=== PATIENT | male | born 1935 | race Caucasian/White ===

== ENCOUNTER 2017-02-21 21:49 | Observation (INO) ==
[2017-02-21] MEDS ORDERED: Ondansetron 4 MG/2 ML VIAL IVP ONE (22:05)
[2017-02-21 22:14] LABS: Basophils # 0.1 K/mcL (0.0-0.2); Basophils % 0.5 %; Eosinophils # 0.1 K/mcL (0.0-0.6); Hemoglobin 12.5 g/dL (12.9-16.9); Immature Granulocytes % 0.4 % (0-4); Lymphocytes # 1.1 K/mcL (0.6-4.6); Lymphocytes % 10.7 %; Mean Corpuscular HGB Conc 32.9 g/dL (31.6-35.5); Mean Corpuscular Hemoglobin 29.1 pg (28.0-33.3); Mean Corpuscular Volume 88.4 fL (83.0-100.0); Mean Platelet Volume 9.3 fL (9.4-12.4); Monocytes # 0.8 K/mcL (0.0-1.3); Monocytes % 7.9 %; Neutrophils # 7.8 K/mcL (1.6-8.9); Platelet Count 132 K/mcL (140-400); Red Cell Distribution Width 15.1 % (11.5-14.5); Segmented Neutrophils % 79.5 %
[2017-02-21 22:19] LABS: INR 1.1; Prothrombin Time 11.7 Seconds (9.4-12.1)
[2017-02-21] MEDS ORDERED: GI Cocktail 40 ML EACH PO ONE (22:20)
[2017-02-21 22:22] LABS: Activated Partial Thrombo Time 27.5 Seconds (26.0-36.0)
[2017-02-21 22:27] LABS: BUN/Creatinine Ratio 21 (6-26); Blood Urea Nitrogen 22 mg/dL (8-26); Calcium 10.1 mg/dL (8.6-10.8); Carbon Dioxide 30 mEq/L (19-29); Chloride 100 mEq/L (98-109); Glucose 116 mg/dL (70-99); Osmolality,Calculated 292 (280-300); Potassium 4.3 mEq/L (3.5-4.5); Sodium 139 mEq/L (136-145); eGFR For African Americans > 60 (> 60); eGFR For Non-African Americans > 60 (> 60)
[2017-02-21 22:44] LABS: Alanine Aminotransferase 138 Units/L (0-55); Albumin 3.9 g/dL (3.5-5.0); Albumin/Globulin Ratio 1.1 (1.1-2.2); Alkaline Phosphatase 167 Units/L (38-126); Aspartate Amino Transferase 262 Units/L (5-34); Bilirubin,Direct 1.5 mg/dL (0.0-0.5); Bilirubin,Total 2.5 mg/dL (0.2-1.2); Globulin 3.6 g/dL (2.4-3.5); Lipase 588 Units/L (8-78); Total Protein 7.5 g/dL (6.0-8.3)
--- NOTE | 2017-02-21 22:46 | Emergency Department Note ---
Disposition Clinical Impression: Gallstone pancreatitis Disposition: Admitted As Inpatient Condition: Fair Referrals: NO,PCP [Non-Partnered Physician] - Forms: ED Satisfaction Letter Chest Pain HPI - General Chief Complaint: ED Chest Pain Stated Complaint: chest pain/vomiting Time Seen by Provider: 02/21/17 22:00 Source: patient Mode of arrival: private vehicle Limitations: no limitations Vital Signs Reviewed: Yes Nursing Notes Reviewed: Yes - History of Present Illness HPI Narrative: 81-year-old male history of diabetes, CAD, CABG 3 who presents to the ER with a chief complaint of chest pain. Patient reports that he started having pain around 1 PM today. He reports it was roughly 1 hour after eating. He describes it as a pressure in his epigastric region does not feel similar to his previous DC. Patient reports he has also been a little short of breath but has been nauseous and had a few episodes of nonbloody nonbilious emesis. Patient states he took one sublingual nitroglycerin without any improvement of his symptoms. Patient reports his family made him come in to be seen. Patient states that he follows cardiology in [place]. He denies any recent illnesses, fevers, cough. No history of DVT or PE. No other complaints. Pt complaint: chest pain Onset (ago): hour(s) Time: 13:00 Duration: intermittent Onset: after eating Pain Location: epigastric Severity: moderate Severity scale (1-10): 6 Quality: other (Pressure) Pain Radiation: none Improves with: nothing Worsens with: palpation Associated symptoms: Reports: nausea, vomiting, dyspnea Treatments prior to arrival chest pain: nitroglycerin - Related Data On Oral Contraceptives: No Allergies Allergy/AdvReac Type Severity Reaction Status Date / Time No Known Allergies Allergy Verified 02/21/17 21:50 All systems ED: reviewed and negative except as stated. Constitutional: Denies: fever Cardiovascular: Reports: chest pain Respiratory: Reports: dyspnea. Denies: cough, wheezes Gastrointestinal: Reports: abdominal pain, nausea, vomiting. Denies: diarrhea Musculoskeletal: Denies: back pain, neck pain Chest Pain PMH - Past Medical History Medical history: Reports: atrial fibrillation, CHF, COPD, coronary artery disease, myocardial infarction, thyroid disease Psychiatric history: Reports: no psych history - Social History Smoking Status: Former smoker Alcohol use: Reports: none Drug use: Reports: none Physical Exam - General Limitations: no limitations General appearance: alert, in no apparent distress - Head Head exam: atraumatic, normocephalic, normal inspection - Eye Eye exam: Present: normal appearance, EOMI - ENT ENT exam: normal exam - Neck Neck exam: Present: normal inspection - Chest Chest inspection: Present: normal inspection, symmetric chest wall rise - Respiratory Respiratory exam: Present: normal lung sounds bilaterally - Cardiovascular Cardiovascular exam: Present: regular rate, normal rhythm, normal heart sounds - Abdominal Exam Abdominal exam: Present: soft, tenderness (Patient has epigastric tenderness to palpation. No right upper quadrant abdominal pain.) - Extremities Exam Extremities exam: Present: normal inspection, full ROM - Expanded Upper Extremity Exam Shoulder exam: Present: normal inspection, full ROM Arm exam: Present: normal inspection, full ROM Elbow exam: Present: normal inspection, full ROM Forearm/Wrist exam: Present: normal inspection, full ROM Hand exam: Present: normal inspection, full ROM - Expanded Lower Extremity Exam Hip/Pelvis exam: Present: normal inspection, full ROM Upper leg exam: Present: normal inspection, full ROM Knee exam: Present: normal inspection, full ROM Lower leg exam: Present: normal inspection, full ROM Ankle exam: Present: normal inspection, full ROM Foot/toe exam: Present: normal inspection, full ROM - Neurological Exam Neurological exam: Present: alert - Psychiatric Psychiatric exam: Present: normal affect, normal mood - Skin Skin exam: Present: warm, dry, intact, normal color Course Course Narrative: Patient seen and examined. Vital signs reviewed. We will get an EKG, chest x- ray as well as a CT scan of the abdomen and pelvis with IV contrast with labs. We will give him a GI cocktail and reassess. - Reevaluation(s) Reevaluation #1: Discussed results of imaging and lab work with the patient and family. Reevaluation #2: Discussed recommendations from gastroenterology with the patient and family. - Consultations Consultation #1: I discussed this patient with the on-call ointment mill tender. Reports to make the patient nothing by mouth and they will proceed with an ERCP. Vital Signs Temperature 97.5 F L 02/21/17 21:51 Pulse Rate 81 02/21/17 21:51 Respiratory Rate 18 02/21/17 21:51 Blood Pressure 123/66 02/21/17 21:51 O2 Sat by Pulse Oximetry 99 02/21/17 21:51 Temperature 97.5 F L 02/21/17 21:51 Pulse Rate 100 02/22/17 01:00 Respiratory Rate 22 02/22/17 01:00 Blood Pressure 113/65 02/22/17 01:00 O2 Sat by Pulse Oximetry 92 02/22/17 01:00 Oxygen Delivery Oxygen Delivery Nasal Cannula Chest Pain - MDM Narrative Medical decision making narrative: 81-year-old male presents to the ER due to epigastric abdominal pain that started around 1 PM. EKG here is sinus rhythm. Troponin negative. CT scan shows cholelithiasis with biliary ductal dilation. He also has a transaminitis , pancreatitis and elevated bilirubin consistent with a gallstone pancreatitis. Case was discussed with gastroenterology. The patient will be made nothing by mouth to undergo ERCP later date. Admitted to the hospitalist service. - Lab Data Lab results reviewed: Yes I reviewed the patient's lab results. Result diagrams: 02/21/17 22:05 02/21/17 22:05 Lab Results 02/21/17 02/21/17 02/21/17 Range/Units 22:05 22:05 22:05 WBC 9.9 (4.3-11.1) K/mcL RBC 4.30 (4.19-5.50) M/mcL Hgb 12.5 L (12.9-16.9) g/dL Hct 38.0 (37.5-50.1) % MCV 88.4 (83.0-100.0) fL MCH 29.1 (28.0-33.3) pg MCHC 32.9 (31.6-35.5) g/dL RDW 15.1 H (11.5-14.5) % Plt Count 132 L (140-400) K/mcL MPV 9.3 L (9.4-12.4) fL Immature Gran % 0.4 (0-4) % Seg Neutrophils % 79.5 % Lymphocytes % 10.7 % Monocytes % 7.9 % Eosinophils % 1.0 % Basophils % 0.5 % Neutrophils # 7.8 (1.6-8.9) K/mcL Lymphocytes # 1.1 (0.6-4.6) K/mcL Monocytes # 0.8 (0.0-1.3) K/mcL Eosinophils # 0.1 (0.0-0.6) K/mcL Basophils # 0.1 (0.0-0.2) K/mcL PT 11.7 (9.4-12.1) Seconds INR 1.1 APTT 27.5 (26.0-36.0) Seconds Sodium (136-145) mEq/L Potassium (3.5-4.5) mEq/L Chloride (98-109) mEq/L Carbon Dioxide (19-29) mEq/L BUN (8-26) mg/dL Creatinine (0.72-1.25) mg/dL Est GFR ( Amer) (> 60) Est GFR (Non-Af Amer) (> 60) BUN/Creatinine Ratio (6-26) Glucose (70-99) mg/dL Calculated Osmolality (280-300) Calcium (8.6-10.8) mg/dL Total Bilirubin (0.2-1.2) mg/dL Direct Bilirubin (0.0-0.5) mg/dL Indirect Bilirubin (0.0-1.2) mg/dL AST (5-34) Units/L ALT (0-55) Units/L Alkaline Phosphatase (38-126) Units/L Troponin I (0-0.03) ng/mL B-Natriuretic Peptide 106 H (0-100) pg/mL Serum Total Protein (6.0-8.3) g/dL Albumin (3.5-5.0) g/dL Globulin (2.4-3.5) g/dL Albumin/Globulin Ratio (1.1-2.2) Lipase (8-78) Units/L 02/21/17 02/21/17 Range/Units 22:05 22:05 WBC (4.3-11.1) K/mcL RBC (4.19-5.50) M/mcL Hgb (12.9-16.9) g/dL Hct (37.5-50.1) % MCV (83.0-100.0) fL MCH (28.0-33.3) pg MCHC (31.6-35.5) g/dL RDW (11.5-14.5) % Plt Count (140-400) K/mcL MPV (9.4-12.4) fL Immature Gran % (0-4) % Seg Neutrophils % % Lymphocytes % % Monocytes % % Eosinophils % % Basophils % % Neutrophils # (1.6-8.9) K/mcL Lymphocytes # (0.6-4.6) K/mcL Monocytes # (0.0-1.3) K/mcL Eosinophils # (0.0-0.6) K/mcL Basophils # (0.0-0.2) K/mcL PT (9.4-12.1) Seconds INR APTT (26.0-36.0) Seconds Sodium 139 (136-145) mEq/L Potassium 4.3 (3.5-4.5) mEq/L Chloride 100 (98-109) mEq/L Carbon Dioxide 30 H (19-29) mEq/L BUN 22 (8-26) mg/dL Creatinine 1.03 (0.72-1.25) mg/dL Est GFR ( Amer) > 60 (> 60) Est GFR (Non-Af Amer) > 60 (> 60) BUN/Creatinine Ratio 21 (6-26) Glucose 116 H (70-99) mg/dL Calculated Osmolality 292 (280-300) Calcium 10.1 (8.6-10.8) mg/dL Total Bilirubin 2.5 H (0.2-1.2) mg/dL Direct Bilirubin 1.5 H (0.0-0.5) mg/dL Indirect Bilirubin 1.0 (0.0-1.2) mg/dL AST 262 H (5-34) Units/L ALT 138 H (0-55) Units/L Alkaline Phosphatase 167 H (38-126) Units/L Troponin I 0.01 (0-0.03) ng/mL B-Natriuretic Peptide (0-100) pg/mL Serum Total Protein 7.5 (6.0-8.3) g/dL Albumin 3.9 (3.5-5.0) g/dL Globulin 3.6 H (2.4-3.5) g/dL Albumin/Globulin Ratio 1.1 (1.1-2.2) Lipase 588 H (8-78) Units/L - Radiology Data Radiology results reviewed: Yes I reviewed the patient's radiology results. Chest X-Ray 02/21/17 22:01 IMPRESSION: Extensive chronic pleural and parenchymal disease including calcified pleural plaques. No definite acute disease. D/ / Jesse Cobb MD / Jesse Cobb MD Interpreting Provider: Jesse Cobb MD Abdomen/Pelvis CT 02/21/17 22:30 IMPRESSION: 1. Cholelithiasis with biliary ductal dilation but no definite evidence for acute cholecystitis. 2. Diverticulosis without scan evidence for diverticulitis. 3. Small knuckle of small bowel is contained within a supraumbilical hernia without evidence for bowel obstruction. D/ / Bryce Che MD / Bryce Che MD Interpreting Provider: Bryce Che MD - EKG Data EKG attestation: Yes I reviewed and interpreted this EKG. EKG results narrative: EKG demonstrates normal sinus rhythm with a rate of 84 bpm. Normal axis. RI interval 127 QRS duration 99 QTc 413 t elevations or depressions. No acute ischemic findings. No significant changes from previous EKG dated 03/11/12. Heart Score - Score History: Slightly Suspicious EKG: Normal Age: Greater than 65 Risk Factors: Equal/Greater than 3 risk factor or history of atherosclerotic disease Troponin: Less than normal limit HEART Score Total: 4 S.B.A.R. - S.B.A.R. Situation: Demographics, MOA Background: Presenting Complaint, Relevant PMH, Meds, & Allergies Assessment: Vital Signs, Course and respsone to treatment, Exam Concerns, Patient/Family Expectation, Pertinant Lab Results, Outstanding Labs Recommendation: Barrier(s) to disposition, Recommendation based on pending studies, treatments, or consults S.B.A.R. Report Given to: Dr. Ospina Attestation Statement - Attestation Attestation: I, Kishore Benites MD, personally performed a history and physical exam of the patient and discussed their management with the resident. I reviewed the resident's note and agree with the documented findings, medical decision making , and plan of care. 81-year-old male presents to the emergency department with a complaint of upper abdominal pain associated with nausea and vomiting. Symptoms started about 6 PM this evening. No prior history of similar episodes. No prior abdominal surgeries. No melena, hematemesis, or hematochezia. On examination patient is a well-developed well-nourished elderly male in no acute distress. He has alert and oriented 3. There is no cyanosis or diaphoresis. Rest sounds are equal bilaterally. Heart regular rate and rhythm. Abdomen soft with normal bowel sounds. Mild to moderate epigastric tenderness. No guarding or rebound tenderness. No tympany or distention. Labs reviewed. Elevated bilirubin and liver enzymes noted. Elevated lipase. CT shows a distended gallbladder with cholelithiasis and dilated common bile duct. No evidence of acute cholecystitis. Dr. Mehta discussed with ointment mill tender, Dr. Eli. He recommended admission by the hospitalist and he will consult on the patient for an ERCP. The hospitalist, Dr. Ospina, was consulted and accepted admission of the patient.
[2017-02-22] MEDS ORDERED: *HR* FentaNYL (PF) 100 MCG/2 ML VIAL IVP ONE (00:16)
[2017-02-22] MEDS ORDERED: 0.9 % Sodium Chloride 1,000 ML IVC ONE (01:32)
--- NOTE | 2017-02-22 02:15 | Internal Med History&Physical ---
Date of Encounter: 02/22/17 Time of Encounter: 02:11 Assessment and Plan (1) Gallstone pancreatitis Current visit: Yes Status: Acute Gallstone pancreatitis, will give IV hydration and pain control. Evaluation by gastroenterology. Emergency Department staff discussed the case with Dr. Eli, will keep the patient nothing per mouth and possible ERCP later today. GI prophylaxis. DVT prophylaxis. Telemetry monitoring. Discussed with the patient and his family in detail, they expressed understanding. (2) Coronary artery disease Current visit: Yes Status: Acute With history of coronary artery disease, taking Plavix on a daily basis. History of stents, last one placed in 05/07/2015. He follows up with Dr. Lopes from [facility]. No chest pain, no EKG changes. Will continue monitoring in telemetry. Qualifiers: Coronary Disease-Associated Artery/Lesion type: unspecified vessel or lesion type [place] vs. transplanted heart: [place] heart Associated angina: without angina Qualified Code(s): I25.10 - Atherosclerotic heart disease of [place] coronary artery without angina pectoris Internal Medicine - H&P: HPI Chief complaint: epigastric pain Admitted From: Emergency Dept Plans for Post Hospital Care: Home History of present illness: Mr. Clark is a very pleasant 81 year old male with past medical history of coronary artery disease status post Dae, status post multiple stents, last one placed in April 2015. Patient follows up at [facility] with dr. everette lopes. He presented to the emergency department complaining of epigastric pain radiating to his back, associated with nausea and vomiting which started a few hours ago. He states of having vomited at least 12 times. Patient denies fever, chills, chest pain, worsening shortness of breath, skin rash, syncope, abnormal movements, melena, hematemesis. Evaluation in the emergency department revealed elevated amylase levels and a CT of the abdomen which revealed correlate the diagnosis with CBD dilation. The patient was admitted for further management and workup. Patient denies the use of Coumadin for anticoagulation, he is taking plavix He is not taking aspirin because he has a history of epistaxis. The patient also takes Lasix daily. His family members with in the room when I interviewed this gentleman, he is hard of hearing, he wears a hearing aid. She states that has a history of abnormal rhythm, at some point he was on Coumadin but he stopped taking Coumadin as per his collar setter overlock advise many years ago. He has regular follow-ups with his collar setter overlock. Past Med Surg Social Fam HX - Past Medical History Medical history: atrial fibrillation, CHF, COPD, coronary artery disease, myocardial infarction, thyroid disease Psychiatric history: no psych history - Social History Smoking Status: Former smoker Smokeless Tobacco Status: No Alcohol use: none Drug use: none Internal Medicine - H&P: Meds Allergies No Known Allergies Allergy (Verified 02/21/17 21:50) All Systems PM: A 10-system review of systems was performed and is negative for pertinent findings except as documented above in the HPI. - Constitutional Constitutional: as per HPI, anorexia, no chills, no fever(s), no night sweats - EENT Eyes: as per HPI, no change in vision, no discharge, no pain, no photophobia Ears: as per HPI, no ear discharge, no ear pain, no tinnitus Nose, mouth and throat: as per HPI, no dysphagia, no nasal discharge, no neck pain, no sore throat - Breasts Breasts: as per HPI - Cardiovascular Cardiovascular ROS IM: as per HPI, no chest pain, no diaphoresis, no dyspnea, no lightheadedness, no palpitations, no syncope - Respiratory Respiratory: as per HPI, no cough, no dyspnea, no wheezing, no excessive phlegm production - Gastrointestinal Gastrointestinal: as per HPI, abdominal pain, vomiting, no diarrhea, no hematemesis, no hematochezia, no melena, no nausea - Genitourinary Genitourinary ROS male: as per HPI - Musculoskeletal Musculoskeletal ROS IM: as per HPI, no numbness, no tingling - Integumentary Integumentary IM: as per HPI, no rash, no unusual bruising - Neurological Neurological ROS: as per HPI, no confusion, no convulsions, no focal weakness, no numbness, no tingling, no tremor(s) - Psychiatric Psychiatric: as per HPI - Endocrine Endocrine IM: as per HPI - Hematologic/Lymphatic Hematologic/Lymphatic: as per HPI, no easy bruising - Allergic/Immunologic Allergic/Immunologic: as per HPI - Constitutional Vitals: Temp Pulse Resp BP Pulse Ox 97.5 F L 100 22 113/65 92 02/21/17 21:51 02/22/17 01:00 02/22/17 01:00 02/22/17 01:00 02/22/17 01:00 General appearance: Present: cooperative, mild distress, A&O X 3, pleasant - Head Head exam: Present: atraumatic, normocephalic - Eye Eye exam: Present: PERRL, conjuntiva pink, sclera anicteric Pupils: Present: PERRL - Neck Neck exam general surgery: Present: supple, trachea midline. Absent: lymphadenopathy - Respiratory Respiratory exam: Present: CTAB. Absent: accessory muscle use, rales, rhonchi, wheezes - Cardiovascular Cardiovascular exam: Present: RRR, +S1, +S2. Absent: diastolic murmur, gallop, rubs, systolic murmur - GI/Abdominal GI/Abdominal exam: Present: normal bowel sounds, soft. Absent: distended, tenderness Additional comments: [place], but patient with epigastric area. No right lower quadrant tenderness. Abdomen is otherwise soft. - Extremities Exam Extremities exam: Present: pedal edema, warm, radial pulses palpable and symetrical. Absent: calf tenderness, cyanotic Additional comments: Warmth and chronic skin dryness in both lower extremities - Neurological Exam Neurological exam: Present: CN II-XII intact, oriented X3, no focal deficits. Absent: pronater drift, facial droop, speech deficit - Skin Skin exam: Present: dry, intact Internal Med - H&P Results - Labs CBC & Chem 7: 02/21/17 22:05 02/21/17 22:05 Labs: Short CBC 02/21/17 Range/Units 22:05 WBC 9.9 (4.3-11.1) K/mcL Hgb 12.5 L (12.9-16.9) g/dL Hct 38.0 (37.5-50.1) % Plt Count 132 L (140-400) K/mcL Neutrophils # 7.8 (1.6-8.9) K/mcL BMP 02/21/17 22:05 Sodium 139 Potassium 4.3 Chloride 100 Carbon Dioxide 30 H BUN 22 Creatinine 1.03 Glucose 116 H Calcium 10.1 Cardiac Enzymes 02/21/17 Range/Units 22:05 Troponin I 0.01 (0-0.03) ng/mL Liver Function 02/21/17 Range/Units 22:05 Total Bilirubin 2.5 H (0.2-1.2) mg/dL Direct Bilirubin 1.5 H (0.0-0.5) mg/dL AST 262 H (5-34) Units/L ALT 138 H (0-55) Units/L Alkaline Phosphatase 167 H (38-126) Units/L Albumin 3.9 (3.5-5.0) g/dL - Impressions ITS Impressions Chest X-Ray 02/21/17 22:01 IMPRESSION: Extensive chronic pleural and parenchymal disease including calcified pleural plaques. No definite acute disease. D/ / Jesse Cobb MD / Jesse Cobb MD Interpreting Provider: Jesse Cobb MD Abdomen/Pelvis CT 02/21/17 22:30 IMPRESSION: 1. Cholelithiasis with biliary ductal dilation but no definite evidence for acute cholecystitis. 2. Diverticulosis without scan evidence for diverticulitis. 3. Small knuckle of small bowel is contained within a supraumbilical hernia without evidence for bowel obstruction. D/ / Brcye Che MD / Bryce Che MD Interpreting Provider: Bryce Che MD
[2017-02-22] MEDS ORDERED: Naloxone 0.4 MG/ML INJ IVP PRN ×2 (02:22)
[2017-02-22] MEDS ORDERED: *HR* Morphine 2 MG/ML SYRINGE IVP PRN (02:22)
[2017-02-22] MEDS: 0.9 % Sodium Chloride 1,000 ML IVC SCH ×2 (03:38→15:46)
[2017-02-22] MEDS: Ondansetron 4 MG/2 ML VIAL IVP PRN ×3 (03:38→18:44)
[2017-02-22 03:45] LABS: Basophils % 0.5 %; Eosinophils % 0.2 %; Hemoglobin 11.8 g/dL (12.9-16.9); Immature Granulocytes % 0.3 % (0-4); Lymphocytes # 0.6 K/mcL (0.6-4.6); Lymphocytes % 9.6 %; Mean Corpuscular HGB Conc 33.7 g/dL (31.6-35.5); Mean Corpuscular Hemoglobin 29.6 pg (28.0-33.3); Mean Corpuscular Volume 87.9 fL (83.0-100.0); Mean Platelet Volume 9.2 fL (9.4-12.4); Monocytes # 0.5 K/mcL (0.0-1.3); Monocytes % 7.7 %; Neutrophils # 5.4 K/mcL (1.6-8.9); Platelet Count 106 K/mcL (140-400); Red Blood Count 3.98 M/mcL (4.19-5.50); Red Cell Distribution Width 15.2 % (11.5-14.5); Segmented Neutrophils % 81.7 %
[2017-02-22 03:47] LABS: INR 1.1; Prothrombin Time 12.1 Seconds (9.4-12.1)
[2017-02-22 04:02] LABS: Alanine Aminotransferase 243 Units/L (0-55); Albumin 3.5 g/dL (3.5-5.0); Albumin/Globulin Ratio 1.1 (1.1-2.2); Alkaline Phosphatase 172 Units/L (38-126); Amylase 160 Units/L (25-125); Aspartate Amino Transferase 368 Units/L (5-34); BUN/Creatinine Ratio 21 (6-26); Bilirubin,Direct 2.3 mg/dL (0.0-0.5); Bilirubin,Total 3.3 mg/dL (0.2-1.2); Blood Urea Nitrogen 20 mg/dL (8-26); Calcium 9.5 mg/dL (8.6-10.8); Carbon Dioxide 30 mEq/L (19-29); Chloride 102 mEq/L (98-109); Globulin 3.1 g/dL (2.4-3.5); Glucose 120 mg/dL (70-99); Lipase 248 Units/L (8-78); Magnesium 1.7 mg/dL (1.6-2.6); Osmolality,Calculated 296 (280-300); Potassium 4.7 mEq/L (3.5-4.5); Sodium 141 mEq/L (136-145); Total Protein 6.6 g/dL (6.0-8.3); Triglycerides 44 mg/dL (< 150); eGFR For African Americans > 60 (> 60); eGFR For Non-African Americans > 60 (> 60)
[2017-02-22 04:06] LABS: Lactate Dehydrogenase 512 Units/L (159-327)
[2017-02-22] MEDS: *HR* Heparin 5,000 UNIT/ML VIAL SQ SCH ×2 (05:58→17:11)
[2017-02-22] MEDS ORDERED: *HR* HYDROmorphone (PF) 1 MG/ML SYRINGE IVP ONE (06:15)
[2017-02-22] MEDS: Pantoprazole 40 MG VIAL IVP SCH (07:44)
[2017-02-22] MEDS ORDERED: 0.9 % Sodium Chloride 500 ML ONE (10:02)
--- NOTE | 2017-02-22 10:17 | Anesthesia Evaluation PreOp ---
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 Significant HX Other Medical History: Thyroid Anesthesia History: No Prior Anesthetic Complications Alcohol Use: none Drug use: none Medications and Allergies Allergies No Known Allergies Allergy (Verified 02/21/17 21:50) - Meds/Allergy Pre-op Review Medications Reviewed: Yes Allergies Reviewed: Yes Beta Blockers on Current Med List: No Anesthesia Results - Labs 02/22/17 03:35 02/22/17 03:35 - Imaging EKG: report reviewed (SR) Additional studies: ECHO 2014 EF 50% Anesthesia Exam O2 Sat Height 1.85 m Weight 80.286 kg Weight 81.647 kg O2 Sat by Pulse Oximetry 97 O2 Sat by Pulse Oximetry 9 O2 Sat by Pulse Oximetry 98 O2 Sat by Pulse Oximetry 92 O2 Sat by Pulse Oximetry 93 O2 Sat by Pulse Oximetry 92 O2 Sat by Pulse Oximetry 92 O2 Sat by Pulse Oximetry 99 Vital Signs Temp Pulse Resp BP Pulse Ox 97.5 F L 81 18 123/66 99 02/21/17 21:51 02/21/17 21:51 02/21/17 21:51 02/21/17 21:51 02/21/17 21:51 Height: 6'1 Weight: 177 lbs NPO (# of Hours): MN Pain Scale: 0 - HEENT Pupil (Motor): Pupils equal, EOMI Mallampati: III Teeth: Edentulous (no upper teeth) Denture Type: Upper: Complete Oral Opening: Less than or equal to 3 - [employer]UE CRAFTSMAN LOC: Oriented [employer] Motor: Normal RUE, Normal LUE, Normal RLE, Normal LLE, Normal Face [employer] Sensory: Normal: RUE, LUE, RLE, LLE, Face - Cardiac Rhythm: Regular Murmur: None JVD: No Carotid Bruit: No - Pulmonary Breath Sounds: bilateral Clear Respiratory Effort: Symmetrical Anesthesia Assess/Plan ASA Score: 3 (CAD COPD) Modified [place] Scale for Level of Consciousness: Cooperative, oriented, and tranquil Anesthetic Plan: General Monitoring Plan: Standard Monitors Recovery Plan: PACU (Discussed GA, agrees to proceed)
[2017-02-22] MEDS ORDERED: *HR* FentaNYL (PF) 100 MCG/2 ML VIAL ONE (10:29)
[2017-02-22] MEDS ORDERED: *HR* Rocuronium Bromide 50 MG/5 ML VIAL ONE (10:29)
[2017-02-22] MEDS ORDERED: Lidocaine -MPF 2% 2 ML VIAL ONE (10:29)
[2017-02-22] MEDS ORDERED: *HR* Propofol 200 MG/20 ML VIAL IVP ONE (10:29)
[2017-02-22] MEDS ORDERED: Ondansetron 4 MG/2 ML VIAL ONE (10:29)
[2017-02-22] MEDS ORDERED: Lidocaine -MPF 4% 5 ML AMPUL ONE (10:30)
--- NOTE | 2017-02-22 10:31 | Gastroenterology Consult Note ---
Date of Encounter: 02/22/17 Time of Encounter: 08:40 - Assessment and plan (1) Gallstone pancreatitis Current Visit: Yes Status: Acute Assessment and plan: The patient with symptomatic gallstones now with the abnormal LFTs and elevated amylase lipase concerning for gallstone pancreatitis and possible retain stone in the bile duct Patient will need an EUS to examine the common bile duct and if abnTHEN ERCP. PATIENT WILL ALSO NEED GALLBLADDER REMOVED BEFORE HE IS BEING DISCHARGED FROM THE HOSPITAL. DISCUSSED WITH THE PATIENT ABOUT THE PROCEDURE INCLUDING risks such as INFECTION BLEEDING PERFORATION PANCREATITIS. BLEEDING BECAUSE HE WAS ON PLAVIX. Patient voice understanding and in agreement - Time Spent With Patient Total time spent is greater than 50% in coordination of care (as documented) at patient's floor/unit and/or counseling patient: GI History of Present Illness - Data of Consult Requesting Physician: Yuriy Aggarwal MD - Consult Narrative History of present illness: Mr. Clark is a 81 year old male Past Med Surg Social Fam HX - Past Medical History Medical history: atrial fibrillation, CHF, COPD, coronary artery disease, myocardial infarction, thyroid disease Psychiatric history: no psych history - Past Surgical History Surgical History: coronary bypass (CABG) - Social History Smoking Status: Former smoker Smokeless Tobacco Status: No Alcohol use: none Drug use: none - Family History Mother Living Status: Hx Family Neuromuscular Disorders: Yes (TB) Review of Systems: GI: as per [facility] GENERAL: denies fever, EYES: denies yellow discoloration ENT: denies pain with swallowing or difficulty swallowing CARDIO: denies chest pain, palpitations RESP: short of breath all time : denies change in color of urine NEURO: denies any new weakness HEME: easy bruising. DERM: dry skin and itchy PSYCH: denies history of: depression or anxiety - Constitutional Vitals: Temp Pulse Resp BP Pulse Ox 97.9 F 92 18 126/72 97 02/22/17 06:32 02/22/17 06:32 02/22/17 06:32 02/22/17 06:32 02/22/17 06:32 General appearance: Present: A&O X 3 - Head Head exam: Present: atraumatic, normocephalic - Neck Neck exam general surgery: Present: supple - Respiratory Additional comments: few crackle in the bases - Cardiovascular Cardiovascular exam: Present: +S1, +S2 Additional comments: Rhythm is regular. Does have central scar of CABG that extended all the way to the upper abdomen - GI/Abdominal Additional comments: Upper abdomen: Scar of CABG. Does has mild tenderness in the epigastric area but no tenderness in the right upper quadrant - Rectal Rectal exam: Present: deferred - Extremities Exam Additional comments: Both lower extremities with chronic venous stasis discoloration - Skin Skin exam: Present: dry Additional comments: Both lower extremity skin with chronic venous stasis changes. Also has multiple bruising all over his body Results - Labs CBC & Chem 7: 02/22/17 03:35 02/22/17 03:35 Labs: Last Result Calcium 9.5 mg/dL (8.6-10.8) 02/22/17 03:35 Troponin I 0.01 ng/mL (0-0.03) 02/21/17 22:05 Triglycerides 44 mg/dL (< 150) 02/22/17 03:35 Entire Visit Hgb 11.8 g/dL (12.9-16.9) L 02/22/17 03:35 Hct 35.0 % (37.5-50.1) L 02/22/17 03:35 PT 12.1 Seconds (9.4-12.1) 02/22/17 03:35 Total Bilirubin 3.3 mg/dL (0.2-1.2) H 02/22/17 03:35 AST 368 Units/L (5-34) H 02/22/17 03:35 ALT 243 Units/L (0-55) H 02/22/17 03:35 Amylase 160 Units/L (25-125) H 02/22/17 03:35 Lipase 248 Units/L (8-78) H 02/22/17 03:35 - ABG ABG results: PT/INR, D-dimer PT 12.1 Seconds (9.4-12.1) 02/22/17 03:35 Consult Discharge Plan - Plan Referrals: Solis Crowder MD [Primary Care Provider] - - Attending Attestation Patient 81-year-old male was admitted because of abdominal pain. Ate lunch yesterday and then he started having epigastric pain, in the evening he vomited couple of times and finally came to the ER had a CT scan done which showed gallstones and abnormal LFTs. Most of his pain has currently resolved but he is LFTs has further increased today. CT also showed mild dilated intrahepatic biliary duct Patient had similar episode of pain twice in the last 2 months but distended. Lasted longer. Denies any fever or chills
[2017-02-22] MEDS ORDERED: *HR* Phenylephrine 10 MG/ML VIAL ONE (11:12)
--- NOTE | 2017-02-22 11:24 | Event Note ---
Date of Encounter: 02/22/17 Time of Encounter: 08:00 Patient is feeling somewhat better this morning. Awaiting EUS and ERCP. Continue supportive care in the meantime. Nothing by mouth. IV hydration. Pain medications and antiemetics.
--- NOTE | 2017-02-22 12:47 | Anesthesia Evaluation Post Op ---
Date of Encounter: 02/22/17 Time of Encounter: 12:30 - Vital Signs Vital Signs: Vital Signs/O2 Sat/Glucose, Most Current Temp Pulse Resp BP Pulse Ox 02/22/17 12:38 98.6 F 85 16 122/75 93 02/22/17 12:28 86 16 113/68 93 02/22/17 12:18 85 16 108/65 93 02/22/17 12:08 98.6 F 80 16 110/85 99 02/22/17 10:45 86 18 120/68 100 - Lungs Lungs: Clear Ascult./Percussion - Airway Airway: Non-obstructed - Cardiovascular Baseline Rhythm - Mental Status Mental Status: Alert & Oriented, Answers Appropriately - Pain Pain Scale: 0 - Nausea Vomiting Nausea Vomiting: Not Present - Hydration Hydration: NPO - Discharge PostOp Status: Transfer Patient to floor
--- NOTE | 2017-02-22 18:00 | Electrocardiograph Report ---
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
[2017-02-23 04:30] LABS: Hemoglobin 10.7 g/dL (12.9-16.9); Immature Granulocytes % 0.3 % (0-4); Segmented Neutrophils % 71.6 %
[2017-02-23 04:32] LABS: Basophils % 0.4 %; Eosinophils # 0.1 K/mcL (0.0-0.6); Hematocrit 33.8 % (37.5-50.1); Immature Platelets 3.2 % (1.1-6.1); Lymphocytes # 1.2 K/mcL (0.6-4.6); Lymphocytes % 15.7 %; Mean Corpuscular HGB Conc 31.7 g/dL (31.6-35.5); Mean Corpuscular Hemoglobin 29.2 pg (28.0-33.3); Mean Corpuscular Volume 92.1 fL (83.0-100.0); Mean Platelet Volume 9.5 fL (9.4-12.4); Monocytes # 0.9 K/mcL (0.0-1.3); Neutrophils # 5.5 K/mcL (1.6-8.9); Platelet Count 111 K/mcL (140-400); Red Blood Count 3.67 M/mcL (4.19-5.50); Red Cell Distribution Width 15.6 % (11.5-14.5)
[2017-02-23 04:54] LABS: Alanine Aminotransferase 282 Units/L (0-55); Albumin 3.1 g/dL (3.5-5.0); Albumin/Globulin Ratio 1.1 (1.1-2.2); Alkaline Phosphatase 208 Units/L (38-126); Aspartate Amino Transferase 266 Units/L (5-34); BUN/Creatinine Ratio 19 (6-26); Bilirubin,Indirect 1.2 mg/dL (0.0-1.2); Blood Urea Nitrogen 16 mg/dL (8-26); Calcium 8.9 mg/dL (8.6-10.8); Carbon Dioxide 31 mEq/L (19-29); Chloride 104 mEq/L (98-109); Globulin 2.8 g/dL (2.4-3.5); Glucose 94 mg/dL (70-99); Lipase 32 Units/L (8-78); Osmolality,Calculated 295 (280-300); Potassium 4.3 mEq/L (3.5-4.5); Sodium 142 mEq/L (136-145); Total Protein 5.9 g/dL (6.0-8.3); eGFR For African Americans > 60 (> 60); eGFR For Non-African Americans > 60 (> 60)
[2017-02-23 05:05] LABS: Bilirubin,Total 5.2 mg/dL (0.2-1.2)
[2017-02-23] MEDS: *HR* Heparin 5,000 UNIT/ML VIAL SQ SCH ×2 (06:33→19:31)
[2017-02-23] MEDS: cefOXitin 2,000 MG in D5% in Water (Mini-Bag+) 100 ML IVPB SCH ×2 (08:11→16:16)
[2017-02-23] MEDS: Pantoprazole 40 MG VIAL IVP SCH (08:11)
--- NOTE | 2017-02-23 08:33 | Cardiology Consult Note ---
Date of Encounter: 02/23/17 Time of Encounter: 08:00 Assessment and Plan (1) Pre-operative cardiovascular examination Current Visit: Yes Status: Acute Pre-operative cardiovascular examination for cholecystectomy, re: gallstone pancreatitis Hx of ischemic heart disease, CABG x3--twice in 1981 and again in 2001. Unclear timing of last PCI, last 1-2 years Mr. Clark reports that he is fairly sedentary; reports angina with exertion or strenuous activity. Reports prn NTG once weekly. Recommend obtaining echocardiogram to evaluate structure and function; most recent TTE June 2016 shows EF 50%. Request records from [facility]--last [facility], echo, cardio notes. To be discussed and reviewed with Dr. Amaya. Discussion w patient/family: The assessment and plan as outlined above was discussed with the patient and/or family members who expressed understanding and agreement. All questions were answered. Thank you for involving us in the care of your patient. Please call with any questions. The patient will be discussed and reviewed with Dr. Amaya; changes to be made accordingly. History of Present Illness Consult date: 02/23/17 Requesting physician: Yuriy Aggarwal Consult reason: Pre-operative risk stratification Chief complaint: Abdominal pain History of present illness: Mr. Clark is a 81 year old male with PMH significant for CAD s/p CABG (x3-- twice in 1981 & 2001) and PCI, HLD, HTN, and PAF who presented with sudden onset of acute abdominal pain that started on Thursday evening. He was found to have gallstone pacreatitis, underwent attempted ERCP yesterday, and plan for cholecystectomy prior to discharge. Cardiology consulted today for pre- operative risk stratification. Patient is unsure when last PCI was, he thinks it was 1 or 2 years ago, H&P reports April 2015. Reviewed Cardiology (Dr. Trevino) outpatient note from 12/2014- -hx of PAF s/p ablation, Xarelto d/c'ed due to severe nosebleeds. Most recent CV testing ([facility]): TTE 07/02/16: EF 50%, moderate LVDD, no obvious valvular dysfunction. Atypical septal wall motion. Past Med Surg Social Fam HX - Past Medical History Medical history: atrial fibrillation, coronary artery disease, hyperlipidemia, hypertension, myocardial infarction, thyroid disease Psychiatric history: no psych history - Past Surgical History Surgical History: angioplasty/stent, coronary bypass (CABG), other (Atrial fibrillation ablation) - Social History Smoking Status: Former smoker Smokeless Tobacco Status: No Alcohol use: none Drug use: none - Family History Mother Living Status: Hx Family Neuromuscular Disorders: Yes (TB) Medications and Allergies Alendronate Sodium [Alendronate Sodium] 70 mg PO QWEEK 02/22/17 [History] Atorvastatin [Lipitor] 40 mg PO HS 02/22/17 [History] Budesonide/Formoterol 160/4.5 [Symbicort 160/4.5] 2 puff IH BID 02/22/17 [ History] Carvedilol [Coreg] 6.25 mg PO BID 02/22/17 [History] Clopidogrel [Plavix] 75 mg PO DAILY 02/22/17 [History] Ergocalciferol (VITAMIN D2) [Vitamin D2] 50,000 unit PO QWEEK 02/22/17 [History] Furosemide [Lasix] 40 mg PO DAILY 02/22/17 [History] Isosorbide MONOnitrate [Isosorbide Mononitrate ER] 120 mg PO DAILY 02/22/17 [ History] Montelukast [Singulair] 10 mg PO DAILY 02/22/17 [History] Nitroglycerin 02/22/17 [History] Potassium Chloride 20 meq PO DAILY 02/22/17 [History] Allergies No Known Allergies Allergy (Verified 02/21/17 21:50) All Systems Review: A 10-system review of systems was performed and is negative for pertinent findings except as documented above in the HPI. - Cardiovascular Cardiovascular: as per HPI Physical Examination Vital Signs, Last 4 Hours Temp Pulse Resp BP Pulse Ox 02/23/17 06:40 98.7 F 85 16 109/62 100 General: Conversant, No Apparent Distress HEENT: Atraumatic, Normocephaly, Mucus Membranes Moist Cardiac: Reg Rate and Rhythm, Normal S1 and S2 Lungs: Normal Breath Sounds Neuro: Alert and responsive Abdomen: Soft Extremities: Other (BLE discoloration--dark purple/dry--non-pitting edema. ) Results 02/23/17 04:10 02/23/17 04:10 Lab Results 02/23/17 02/23/17 04:10 04:10 WBC 7.7 Hgb 10.7 L Hct 33.8 L Plt Count 111 L Sodium 142 Potassium 4.3 Chloride 104 Carbon Dioxide 31 H BUN 16 Creatinine 0.86 Glucose 94 Calcium 8.9 Total Bilirubin 5.2 H D AST 266 H ALT 282 H Alkaline Phosphatase 208 H Lipase 32 Active Medications Heparin Sodium (Porcine) (Heparin) 5,000 unit SQ Q12HCO [facility] Stop: 08/24/17 06:01 Last Admin: 02/23/17 06:33 Dose: 5,000 unit Cefoxitin Sodium 2,000 mg/ (Dextrose) 100 mls @ 200 mls/hr IVPB Q8HR [facility] Stop: 08/25/17 08:01 Last Admin: 02/23/17 08:11 Dose: 200 mls/hr Morphine Sulfate (Morphine Sulfate) 2 mg IVP Q4HR PRN PRN Reason: Severe Pain (7-10) Stop: 08/24/17 02:23 Last Admin: 02/22/17 03:17 Dose: 2 mg Naloxone HCl (Narcan) 0.4 mg IVP Q2MIN PRN PRN Reason: Opioid Reversal Stop: 08/24/17 02:23 Naloxone HCl (Narcan) 0.4 mg IVP Q2MIN PRN PRN Reason: SEE COMMENTS Stop: 08/24/17 02:23 Ondansetron HCl (Zofran) 4 mg IVP Q8HR PRN PRN Reason: Nausea And Vomiting Stop: 08/24/17 02:23 Last Admin: 02/22/17 18:44 Dose: 4 mg Pantoprazole Sodium (Protonix) 40 mg IVP DAILY [facility] Stop: 08/24/17 09:01 Last Admin: 02/23/17 08:11 Dose: 40 mg - Imaging and Cardiology Echo: report reviewed Other Results: Telemetry: avg HR=81 SR. PAF noted. - EKG Interpretation EKG results cardiology: personally reviewed Consult Discharge Plan - Plan Referrals: Solis Crowder MD [Primary Care Provider] -
[2017-02-23] MEDS ORDERED: Ipratropium/Albuterol Neb 3 ML IH PRN (11:42)
--- NOTE | 2017-02-23 11:54 | Internal Med Progress Note ---
Date of Encounter: 02/23/17 Time of Encounter: 10:00 - Assessment and plan (1) Gallstone pancreatitis Current Visit: Yes Status: Acute Assessment and plan: Status post-ERCP. Patient will now need laparoscopic cholecystectomy due to presence of gallstone pancreatitis. Surgery has been consulted. We will also consult cardiology for preoperative clearance per family and patient request. Patient has had previous OR. Will keep nothing by mouth after midnight. Continue supportive care and gentle IV hydration. (2) Hyperlipidemia Current Visit: Yes Status: Chronic Assessment and plan: Continue statin. Qualifiers: Hyperlipidemia type: mixed hyperlipidemia Qualified Code(s): E78.2 - Mixed hyperlipidemia (3) Coronary artery disease Current Visit: Yes Status: Chronic Assessment and plan: Consulted cardiology. No chest pain at this time. Holding Plavix for planned procedure. We will get 2-D echocardiogram Qualifiers: Coronary Disease-Associated Artery/Lesion type: unspecified vessel or lesion type [place] vs. transplanted heart: [place] heart Associated angina: without angina Qualified Code(s): I25.10 - Atherosclerotic heart disease of [place] coronary artery without angina pectoris - Subjective Interval history: Patient is doing well. Underwent ERCP yesterday with the extraction of biliary calculi. Tolerating clear liquids well. Denies any abdominal pain at this time. No nausea or vomiting. No chest pain. No shortness of breath. - Constitutional Vitals: Temp Pulse Resp BP Pulse Ox 98.3 F 79 18 114/69 96 02/23/17 11:13 02/23/17 11:13 02/23/17 11:13 02/23/17 11:13 02/23/17 11:13 General appearance: Present: cooperative, mild distress, A&O X 3, pleasant, answers questions appropriately - Respiratory Respiratory exam: Present: CTAB. Absent: accessory muscle use, rales, rhonchi, wheezes - Cardiovascular Cardiovascular exam: Present: RRR, +S1, +S2. Absent: diastolic murmur, gallop, rubs, systolic murmur - GI/Abdominal GI/Abdominal exam: Present: normal bowel sounds, soft, no peritoneal signs. Absent: distended, tenderness - Extremities Exam Extremities exam: Present: warm, radial pulses palpable and symetrical. Absent : calf tenderness, cyanotic, pedal edema - Neurological Exam Neurological exam: Present: alert, oriented X3, no focal deficits. Absent: facial droop, speech deficit - Skin Skin exam: Present: dry, intact Additional comments: Jaundice Internal Medicine: Result - Labs CBC & Chem 7: 02/23/17 04:10 02/23/17 04:10 Labs: Short CBC 02/23/17 Range/Units 04:10 WBC 7.7 (4.3-11.1) K/mcL Hgb 10.7 L (12.9-16.9) g/dL Hct 33.8 L (37.5-50.1) % Plt Count 111 L (140-400) K/mcL Neutrophils # 5.5 (1.6-8.9) K/mcL BMP 02/23/17 04:10 Sodium 142 Potassium 4.3 Chloride 104 Carbon Dioxide 31 H BUN 16 Creatinine 0.86 Glucose 94 Calcium 8.9 Liver Function 02/23/17 Range/Units 04:10 Total Bilirubin 5.2 H D (0.2-1.2) mg/dL Direct Bilirubin 4.0 H (0.0-0.5) mg/dL AST 266 H (5-34) Units/L ALT 282 H (0-55) Units/L Alkaline Phosphatase 208 H (38-126) Units/L Albumin 3.1 L (3.5-5.0) g/dL - ABG Interpretation ABG results: PT/INR, D-dimer PT 12.1 Seconds (9.4-12.1) 02/22/17 03:35 - Impressions Impressions Cath/Invasive Procedure 02/22/17 12:09 IMPRESSION: Intraprocedural fluoroscopic spot images as above. See separate procedure report for more information. D/ / 02/22/2017 16:44:59 Maurisio Dao MD / [facility] Interpreting Provider: Maurisio Dao MD Consult Discharge Plan - Plan Referrals: Solis Crowder MD [Primary Care Provider] - - Attending Attestation This document has been at least partially created by [employer] recognition technology by Dr. Aggarwal. Errors in grammar, wording or other phrases may exist. If errors are found after the documentation is signed, they will be addressed individually in the addendum section of this document when appropriate.
[2017-02-23] MEDS ORDERED: 0.9 % Sodium Chloride 1,000 ML IVC SCH (12:00)
[2017-02-23] MEDS ORDERED: *HR* Succinylcholine 200 MG/10 ML VIAL IVP ONE (13:03)
[2017-02-23] MEDS ORDERED: Lidocaine -MPF 4% 5 ML AMPUL TP ONE (13:03)
[2017-02-23] MEDS ORDERED: *HR* Propofol 200 MG/20 ML VIAL IVP ONE (13:03)
[2017-02-23] MEDS ORDERED: Dexamethasone 120 MG/30 ML MDV IVP ONE (13:03)
[2017-02-23] MEDS ORDERED: Ondansetron 4 MG/2 ML VIAL IVP ONE (13:03)
[2017-02-23] MEDS ORDERED: Lidocaine -MPF 2% 5 ML VIAL INFILT ONE (13:03)
--- NOTE | 2017-02-23 14:01 | General Surgery Consult Note ---
<Leidy Phillips Binta - Last Filed: 02/23/17 14:09> Date of Encounter: 02/23/17 Time of Encounter: 13:45 Assessment and Plan (1) Gallstone pancreatitis Current Visit: Yes Status: Acute Clear liquid diet NPO after midnight Supportive care/pain control IV fluids Plan to proceed to the operating room with Dr. Wheeler for laparosocpic cholecystectomy with possible cholangiogram, possible open; primary repair of ventral/incisional and umbilical hernia after cleared per cardiology- Consent complete IS every 1 hour while awake Pre-operative antibiotics- Mefoxin (2) Coronary artery disease Current Visit: Yes Status: Chronic Cardiology consulted for clearance Echo to be complete today Records ordered from [facility] Qualifiers: Coronary Disease-Associated Artery/Lesion type: bypass graft [place] vs. transplanted heart: [place] heart Associated angina: without angina Qualified Code(s): I25.810 - Atherosclerosis of coronary artery bypass graft(s) without angina pectoris (3) DVT prophylaxis Current Visit: Yes Status: Acute Heparin 5,000 units SQ twice daily for DVT prophylaxis History of Present Illness Consult date: 02/23/17 Reason for consult: other (Gallstone Pancreatitis) Requesting physician: Yuriy Aggarwal History of present illness: Mr. Clark is a very pleasant 81 year old male who has been admitted to the hospital and treated for gallstone pancreatitis. He presented to the ED on with complaints of epigastric pain radiating into back which was severe. He reports multiple episodes of nausea and vomiting without hematemesis of coffee ground emesis. He has never experienced symptoms like this in the past. He denies fevers/chills. Denies any changes in bowel habits. Denies any shortness of breath or chest pains. Denies any difficulty with urination. He is s/p ERCP with Dr. Eli 02/22/17 and stent was unable to be placed at that time. He states that his epigastric pain has significantly improved and he denies any nausea or vomiting. Hepatic panel values continue to be elevated. We have been asked to see and evaluate the patient for gallbladder removal. Past Med Surg Social Fam HX - Past Medical History Source: patient, old records reviewed Medical history: atrial fibrillation, coronary artery disease, hyperlipidemia, hypertension, myocardial infarction, thyroid disease Psychiatric history: no psych history - Past Surgical History Surgical History: angioplasty/stent (multiple), coronary bypass (CABG) (3 vessel ), other (Atrial fibrillation ablation) - Social History Smoking Status: Former smoker Smokeless Tobacco Status: No Alcohol use: none Drug use: none Current living situation: Home - Independent Activity Level: Independent ambulation - Family History Mother Living Status: Hx Family Neuromuscular Disorders: Yes (TB) Medications and Allergies Alendronate Sodium [Alendronate Sodium] 70 mg PO QWEEK 02/22/17 [History] Atorvastatin [Lipitor] 40 mg PO HS 02/22/17 [History] Budesonide/Formoterol 160/4.5 [Symbicort 160/4.5] 2 puff IH BID 02/22/17 [ History] Carvedilol [Coreg] 6.25 mg PO BID 02/22/17 [History] Clopidogrel [Plavix] 75 mg PO DAILY 02/22/17 [History] Ergocalciferol (VITAMIN D2) [Vitamin D2] 50,000 unit PO QWEEK 02/22/17 [History] Furosemide [Lasix] 40 mg PO DAILY 02/22/17 [History] Isosorbide MONOnitrate [Isosorbide Mononitrate ER] 120 mg PO DAILY 02/22/17 [ History] Montelukast [Singulair] 10 mg PO DAILY 02/22/17 [History] Nitroglycerin 02/22/17 [History] Potassium Chloride 20 meq PO DAILY 02/22/17 [History] Allergies No Known Allergies Allergy (Verified 02/21/17 21:50) Review of Systems All systems PM: reviewed and no additional remarkable complaints except as stated (in the HPI) All systems PM: A 10-system review of systems was performed and is negative for pertinent findings except as documented above in the HPI. General Surgery Exam Initial Vital Signs Temp Pulse Resp BP Pulse Ox 97.5 F L 81 18 123/66 99 02/21/17 21:51 02/21/17 21:51 02/21/17 21:51 02/21/17 21:51 02/21/17 21:51 - General physical appearance well developed, well nourished, no distress - Eyes PERRL, normal ocular movement, icteric - ENT normal mucosa, atraumatic, normocephalic - Neck trachea midline - Respiratory normal respiratory effort, clear to auscultation - Cardiovascular Cardiovascular exam: Present: RRR, 15, 16 - Abdomen Abdomen general surgery: Present: bowel sounds present, soft, tender (mildly) Abdominal Tenderness: Present: epigastic - Integumentary Integumentary general surgery: Present: warm and dry - Neurologic Present: CN 2-12 grossly intact - Psychiatric Psychiatric general surgery: Present: appropriate, oriented to person, oriented to place, oriented to time, speech is normal, memory intact Exam Initial Vital Signs Temp Pulse Resp BP Pulse Ox 97.5 F L 81 18 123/66 99 02/21/17 21:51 02/21/17 21:51 02/21/17 21:51 02/21/17 21:51 02/21/17 21:51 Results - Labs 02/23/17 04:10 02/23/17 04:10 Abnormal lab results RBC 3.67 M/mcL (4.19-5.50) L 02/23/17 04:10 Hgb 10.7 g/dL (12.9-16.9) L 02/23/17 04:10 Hct 33.8 % (37.5-50.1) L 02/23/17 04:10 RDW 15.6 % (11.5-14.5) H 02/23/17 04:10 Plt Count 111 K/mcL (140-400) L 02/23/17 04:10 Carbon Dioxide 31 mEq/L (19-29) H 02/23/17 04:10 Total Bilirubin 5.2 mg/dL (0.2-1.2) H D 02/23/17 04:10 Direct Bilirubin 4.0 mg/dL (0.0-0.5) H 02/23/17 04:10 AST 266 Units/L (5-34) H 02/23/17 04:10 ALT 282 Units/L (0-55) H 02/23/17 04:10 Alkaline Phosphatase 208 Units/L (38-126) H 02/23/17 04:10 Lactate Dehydrogenase 512 Units/L (159-327) H 02/22/17 03:35 B-Natriuretic Peptide 106 pg/mL (0-100) H 02/21/17 22:05 Serum Total Protein 5.9 g/dL (6.0-8.3) L 02/23/17 04:10 Albumin 3.1 g/dL (3.5-5.0) L 02/23/17 04:10 Amylase 160 Units/L (25-125) H 02/22/17 03:35 Diabetes panel 02/23/17 Range/Units 04:10 Sodium 142 (136-145) mEq/L Potassium 4.3 (3.5-4.5) mEq/L Chloride 104 (98-109) mEq/L Carbon Dioxide 31 H (19-29) mEq/L BUN 16 (8-26) mg/dL Creatinine 0.86 (0.72-1.25) mg/dL Glucose 94 (70-99) mg/dL Calcium 8.9 (8.6-10.8) mg/dL AST 266 H (5-34) Units/L ALT 282 H (0-55) Units/L Alkaline Phosphatase 208 H (38-126) Units/L Albumin 3.1 L (3.5-5.0) g/dL Calcium panel 02/23/17 Range/Units 04:10 Calcium 8.9 (8.6-10.8) mg/dL Albumin 3.1 L (3.5-5.0) g/dL Pituitary panel 02/23/17 Range/Units 04:10 Sodium 142 (136-145) mEq/L Potassium 4.3 (3.5-4.5) mEq/L Chloride 104 (98-109) mEq/L Carbon Dioxide 31 H (19-29) mEq/L BUN 16 (8-26) mg/dL Creatinine 0.86 (0.72-1.25) mg/dL Glucose 94 (70-99) mg/dL Calcium 8.9 (8.6-10.8) mg/dL Adrenal panel 02/23/17 Range/Units 04:10 Sodium 142 (136-145) mEq/L Potassium 4.3 (3.5-4.5) mEq/L Chloride 104 (98-109) mEq/L Carbon Dioxide 31 H (19-29) mEq/L BUN 16 (8-26) mg/dL Creatinine 0.86 (0.72-1.25) mg/dL Glucose 94 (70-99) mg/dL Calcium 8.9 (8.6-10.8) mg/dL Total Bilirubin 5.2 H D (0.2-1.2) mg/dL AST 266 H (5-34) Units/L ALT 282 H (0-55) Units/L Alkaline Phosphatase 208 H (38-126) Units/L Albumin 3.1 L (3.5-5.0) g/dL All other labs normal. - Imaging Additional studies: Chest X-Ray 02/21/17 22:01 IMPRESSION: Extensive chronic pleural and parenchymal disease including calcified pleural plaques. No definite acute disease. D/ / Jesse Cobb MD / Jesse Cobb MD Interpreting Provider: Jesse Cobb MD Abdomen/Pelvis CT 02/21/17 22:30 IMPRESSION: 1. Cholelithiasis with biliary ductal dilation but no definite evidence for acute cholecystitis. 2. Diverticulosis without scan evidence for diverticulitis. 3. Small knuckle of small bowel is contained within a supraumbilical hernia without evidence for bowel obstruction. D/ / Bryce Che MD / Bryce Che MD Interpreting Provider: Bryce Che MD Cath/Invasive Procedure 02/22/17 12:09 IMPRESSION: Intraprocedural fluoroscopic spot images as above. See separate procedure report for more information. D/ / 02/22/2017 16:44:59 Maurisio Dao [facility] / [facility] Interpreting Provider: Maurisio Dao MD Consult Discharge Plan - Plan Referrals: Solis Crowder MD [Primary Care Provider] - <Janny Wheeler - Last Filed: 02/24/17 08:22> Date of Encounter: 02/23/17 Assessment and Plan (1) Ventral incisional hernia Current Visit: Yes Status: Acute discussed with the patient he has ventral incisional hernia which we can repair primarily at time of gallbladder surgery, risks and benefits of repair discussed with patient and he wishes to proceed (2) Umbilical hernia Current Visit: Yes Status: Acute will plan primary repair at time of gallbladder surgery Qualifiers: Obstruction and gangrene presence: without obstruction or gangrene Qualified Code(s): K42.9 - Umbilical hernia without obstruction or gangrene (3) Gallstone pancreatitis Current Visit: Yes Status: Acute (4) Coronary artery disease Current Visit: Yes Status: Chronic Qualifiers: Coronary Disease-Associated Artery/Lesion type: bypass graft [place] vs. transplanted heart: [place] heart Associated angina: without angina Qualified Code(s): I25.810 - Atherosclerosis of coronary artery bypass graft(s) without angina pectoris (5) Hyperlipidemia Current Visit: Yes Status: Chronic Qualifiers: Hyperlipidemia type: mixed hyperlipidemia Qualified Code(s): E78.2 - Mixed hyperlipidemia Review of Systems All systems PM: A 10-system review of systems was performed and is negative for pertinent findings except as documented above in the HPI. General Surgery Exam Initial Vital Signs Temp Pulse Resp BP Pulse Ox 97.5 F L 81 18 123/66 99 02/21/17 21:51 02/21/17 21:51 02/21/17 21:51 02/21/17 21:51 02/21/17 21:51 - General physical appearance well developed, well nourished, no distress, no pain. negative: jaundice - Eyes PERRL, normal ocular movement - ENT dry mucosa, atraumatic, normocephalic - Neck trachea midline - Respiratory normal expansion, clear to auscultation - Cardiovascular Cardiovascular exam: Present: RRR - Abdomen Abdomen general surgery: Present: bowel sounds present, soft ( ), tender. Absent: guarding, rebound Abdominal Tenderness: Present: epigastic, RUQ - Integumentary Integumentary general surgery: Present: warm and dry, no abnormal pigmentation - Neurologic Present: CN 2-12 grossly intact - Musculoskeletal Present: normal posture - Psychiatric Psychiatric general surgery: Present: A&Ox3, speech is normal Exam Initial Vital Signs Temp Pulse Resp BP Pulse Ox 97.5 F L 81 18 123/66 99 02/21/17 21:51 02/21/17 21:51 02/21/17 21:51 02/21/17 21:51 02/21/17 21:51 Results - Labs 02/23/17 04:10 02/23/17 04:10 Abnormal lab results RBC 3.67 M/mcL (4.19-5.50) L 02/23/17 04:10 Hgb 10.7 g/dL (12.9-16.9) L 02/23/17 04:10 Hct 33.8 % (37.5-50.1) L 02/23/17 04:10 RDW 15.6 % (11.5-14.5) H 02/23/17 04:10 Plt Count 111 K/mcL (140-400) L 02/23/17 04:10 Carbon Dioxide 31 mEq/L (19-29) H 02/23/17 04:10 POC Glucose 97 (58-89) H 02/24/17 05:13 Total Bilirubin 5.2 mg/dL (0.2-1.2) H D 02/23/17 04:10 Direct Bilirubin 4.0 mg/dL (0.0-0.5) H 02/23/17 04:10 AST 266 Units/L (5-34) H 02/23/17 04:10 ALT 282 Units/L (0-55) H 02/23/17 04:10 Alkaline Phosphatase 208 Units/L (38-126) H 02/23/17 04:10 Lactate Dehydrogenase 512 Units/L (159-327) H 02/22/17 03:35 B-Natriuretic Peptide 106 pg/mL (0-100) H 02/21/17 22:05 Serum Total Protein 5.9 g/dL (6.0-8.3) L 02/23/17 04:10 Albumin 3.1 g/dL (3.5-5.0) L 02/23/17 04:10 Amylase 160 Units/L (25-125) H 02/22/17 03:35 All other labs normal. - Imaging CT scan - abdomen: report reviewed, image reviewed CT scan - pelvis: report reviewed, image reviewed - Attending Attestation I examined this patient and my medical decision-making was reviewed with the MEMBERSHIP MANAGER/PA/Advanced Practice Nurse/Resident Physician. I agree with the documented findings, disposition and treatment plan as described except to the extent set forth below.
--- NOTE | 2017-02-23 16:09 | ECHO - Doppler Report ---
Echocardiogram Name: Evangelista Clark Date of Study: 02/23/2017 Date: 1935 Ht: 73.0 in Medical Record#: [id number] Age: 81 Wt: 176.0 lb Gender: Male BSA: 2.04 Order #: [id number] Location: [facility] Room #: 3A43 Reading Physician: Abundio Martino MD, [facility] Life Teacher: Davidson Mcneil RDCS Ordering Physician: Afia Clemons CNP Primary Physician: Solis Crowder MD Indications: Pre-operative exam Impressions: Technically sub-optimal due to poor echocardiographic windows. Normal LV systolic function, LVEF 55%. Atypical septal motion consistent with prior cardiac surgery. Normal left ventricular diastolic function. Right ventricle was not well visualized. Appears grossly normal in size and function. Mild tricuspid regurgitation. Moderate pulmonary hypertension. Estimated RVSP = 58 mmHg. Left Ventricular Wall Motion: Rest Echo Findings All wall segments showed normal motion. Findings: Study Quality * Technically sub-optimal due to poor echocardiographic windows. ECG Findings * Sinus rhythm with PVCs. Left Ventricle * Normal LV systolic function, LVEF 55%. * Atypical septal motion consistent with prior cardiac surgery. * Normal LV chamber size and wall thickness. * Normal left ventricular diastolic function. Right Ventricle * Right ventricle was not well visualized. Appears grossly normal in size and function. Left Atrium * Normal left atrial size. Right Atrium * Normal right atrial size. Aorta * Normally sized aortic root. Pericardium * There is no pericardial effusion present. IVC * The IVC was not visualized. Aortic Valve * Trileaflet aortic valve. * Mild-moderately sclerotic aortic valve leaflets. * No aortic stenosis. * No aortic regurgitation. Mitral Valve * Mild mitral annular calcification * No mitral stenosis. * Trace mitral regurgitation. Tricuspid Valve * Tricuspid valve not well visualized. * No tricuspid stenosis. * Mild tricuspid regurgitation. * Moderate pulmonary hypertension. Estimated RVSP = 58 mmHg. Pulmonic Valve * Pulmonic valve not well visualized. * No pulmonic stenosis. * Trace pulmonic regurgitation. History Hypercholesteremia Family History of CAD History of CAD/PTCA Myocardial Infarction Coronary Artery Bypass Graft Congestive Heart Failure 07/02/16 a Previous Echo was performed. Measurements: BP: 114/ 69 2D Normal Values RVIDd: 2.90 cm IVSd: .90 cm 0.6 - 1.0 cm LVIDd: 4.90 cm 3.7 - 5.6 cm LVPWd: .80 cm 0.6 - 1.1 cm LVIDs: 3.30 cm 1.5 - 3.6 cm AO: 3.40 cm < 4.0 cm LA volume: 40 Mitral Valve Peak E:.87 m/sec Peak A:.64 m/sec E/A Ratio:1.4 Peak E' Lat Mitchell:14.9 cm/s Peak E' Med Mitchell:10.7 cm/s E/E' Lat Ratio:5.8 E/E' Med Ratio:8.1 Tricuspid Valve TV Regurg Peak Grad: 53.00mmHg TV Regurg Peak Mitchell: 3.62m/sec Updated by Abundio Martino MD, [facility] on 02/23/2017 4:02:27 PM electronically signed on 02/23/2017 4:03:11 PM with status of Final Wall Motion Reyes: 1=Normal, 2=Hypokinesis, 3=Akinesis, 4=Dyskinesis, 5=Aneurysmal, 6=Hyperkinetic, X=Not Visualized (Blank)=Missing
[2017-02-23] MEDS ORDERED: *HR* FentaNYL (PF) 100 MCG/2 ML VIAL ONE (16:32)
--- NOTE | 2017-02-23 17:55 | Anesthesia Evaluation PreOp ---
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 Any Significant HX Other Medical History: Denies Any Significant HX Anesthesia History: No Prior Anesthetic Complications Alcohol Use: none Drug use: none Medications and Allergies Alendronate Sodium [Alendronate Sodium] 70 mg PO QWEEK 02/22/17 [History] Atorvastatin [Lipitor] 40 mg PO HS 02/22/17 [History] Budesonide/Formoterol 160/4.5 [Symbicort 160/4.5] 2 puff IH BID 02/22/17 [ History] Carvedilol [Coreg] 6.25 mg PO BID 02/22/17 [History] Clopidogrel [Plavix] 75 mg PO DAILY 02/22/17 [History] Ergocalciferol (VITAMIN D2) [Vitamin D2] 50,000 unit PO QWEEK 02/22/17 [History] Furosemide [Lasix] 40 mg PO DAILY 02/22/17 [History] Isosorbide MONOnitrate [Isosorbide Mononitrate ER] 120 mg PO DAILY 02/22/17 [ History] Montelukast [Singulair] 10 mg PO DAILY 02/22/17 [History] Nitroglycerin 02/22/17 [History] Potassium Chloride 20 meq PO DAILY 02/22/17 [History] Allergies No Known Allergies Allergy (Verified 02/21/17 21:50) - Meds/Allergy Pre-op Review Medications Reviewed: Yes Allergies Reviewed: Yes Beta Blockers on Current Med List: Yes If Beta Blockers taken, Date/Time (Last Dose taken): COREG AM Anesthesia Results - Labs 02/23/17 04:10 02/23/17 04:10 Anesthesia Exam Vital Signs - Last 8 Hours Temp Pulse Resp BP Pulse Ox 02/23/17 17:52 98.4 F 80 16 89/52 97 02/23/17 16:57 98.4 F 85 16 104/57 94 02/23/17 16:52 98.4 F 85 16 104/57 94 02/23/17 15:09 98.4 F 84 16 107/64 97 02/23/17 11:13 98.3 F 79 18 114/69 96 Intake and Output 02/23/17 02/23/17 02/23/17 07:59 15:59 23:59 Intake Total 500 / 500 580 / 580 Output Total 100 / 100 150 / 150 Balance 400 / 400 430 / 430 Intake: IV Fluids 100 / 100 Mefoxin 2,000 MG In 100 / 100 Dextrose 5% (Minibag+) 100 ML 100 ML @ 200 mls/ hr IVPB Q8HR [facility] Rx#: [id number] Oral 500 / 500 480 / 480 Output: Urine 100 / 100 150 / 150 Other: Meal NPO lunch Weight 80.28 kg Blood Glucose* 87 Patient Weight 02/23/17 23:59 Weight 80.28 kg Height: 1.85M Weight: 81KG NPO (# of Hours): >8HRS Pain Scale: 0 Pain Scale Used: Numeric (1 - 10) - HEENT Pupil (Motor): Pupils equal Mallampati: III Teeth: Edentulous Denture Type: Upper: Complete (LOWER TEETH INTACT-POOR DENTITION) Oral Opening: Greater than 3 - TUNNEL MINER TUNNEL MINER Motor: Normal RUE, Normal LUE, Normal RLE, Normal LLE, Normal Face TUNNEL MINER Sensory: Normal: RUE, LUE, RLE, LLE, Face - Cardiac Rhythm: Regular Murmur: None - Pulmonary Breath Sounds: bilateral Clear Respiratory Effort: Symmetrical Anesthesia Assess/Plan ASA Score: 3 (COPD CAD) Modified [place] Scale for Level of Consciousness: Cooperative, oriented, and tranquil Anesthetic Plan: General Monitoring Plan: Standard Monitors Recovery Plan: Other (ENDO RECOVERY PATIENT UNDERSTANDS RISK AND BENEFITS OF GENERAL ANESTHESIA- AGREES TO PROCEED WITH PROCEDURE. NO CHANGES FROM PREVIOUS H&P.)
[2017-02-23] MEDS: Budesonide/Formoterol 160/4.5 MDI IH SCH (19:58)
--- NOTE | 2017-02-23 22:11 | Anesthesia Evaluation PreOp ---
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 HX Other Medical History: Denies Any Significant HX Anesthesia History: No Prior Anesthetic Complications Alcohol Use: none Drug use: none Medications and Allergies Alendronate Sodium [Alendronate Sodium] 70 mg PO QWEEK 02/22/17 [History] Atorvastatin [Lipitor] 40 mg PO HS 02/22/17 [History] Budesonide/Formoterol 160/4.5 [Symbicort 160/4.5] 2 puff IH BID 02/22/17 [ History] Carvedilol [Coreg] 6.25 mg PO BID 02/22/17 [History] Clopidogrel [Plavix] 75 mg PO DAILY 02/22/17 [History] Ergocalciferol (VITAMIN D2) [Vitamin D2] 50,000 unit PO QWEEK 02/22/17 [History] Furosemide [Lasix] 40 mg PO DAILY 02/22/17 [History] Isosorbide MONOnitrate [Isosorbide Mononitrate ER] 120 mg PO DAILY 02/22/17 [ History] Montelukast [Singulair] 10 mg PO DAILY 02/22/17 [History] Nitroglycerin 02/22/17 [History] Potassium Chloride 20 meq PO DAILY 02/22/17 [History] Allergies No Known Allergies Allergy (Verified 02/21/17 21:50) - Meds/Allergy Pre-op Review Medications Reviewed: Yes Allergies Reviewed: Yes Beta Blockers on Current Med List: Yes Anesthesia Results - Labs 02/23/17 04:10 02/23/17 04:10 - Imaging EKG: report reviewed, image reviewed (SR) Additional studies: 02-22-17 TTE LVEF 55% atypical septal motion consistent with prior cardiac surgery normal LV diastolic dysfunction RV not well visualized mild TR mod pulm htn Anesthesia Exam Last Vital Signs Temp 99.0 F 02/23/17 21:39 Pulse 85 02/23/17 21:39 Resp 16 02/23/17 21:39 BP 117/69 02/23/17 21:39 Pulse Ox 97 02/23/17 21:39 Weight: 80 kg - HEENT Pupil (Motor): Pupils equal, EOMI Mallampati: II Teeth: Missing, Poor dentition Denture Type: Upper: Complete, Partial Oral Opening: Greater than 3 - SALES PROCESS MANAGER LOC: Oriented - Cardiac Rhythm: Regular Murmur: None - Pulmonary Breath Sounds: bilateral Clear Respiratory Effort: Symmetrical Anesthesia Assess/Plan ASA Score: 3 (Significant CAD history -- multiple CABG and also hx PCI, A fib, COPD) Modified [place] Scale for Level of Consciousness: Cooperative, oriented, and tranquil Anesthetic Plan: General Monitoring Plan: Standard Monitors Recovery Plan: PACU
[2017-02-24] MEDS: cefOXitin 2,000 MG in D5% in Water (Mini-Bag+) 100 ML IVPB SCH ×2 (00:35→09:20)
[2017-02-24] MEDS: *HR* Heparin 5,000 UNIT/ML VIAL SQ SCH (05:54)
[2017-02-24 08:42] LABS: Basophils % 0.1 %; Hematocrit 31.3 % (37.5-50.1); Immature Granulocytes % 0.4 % (0-4); Immature Platelets 3.7 % (1.1-6.1); Lymphocytes # 0.7 K/mcL (0.6-4.6); Mean Corpuscular HGB Conc 31.9 g/dL (31.6-35.5); Mean Corpuscular Hemoglobin 29.3 pg (28.0-33.3); Mean Corpuscular Volume 91.8 fL (83.0-100.0); Mean Platelet Volume 9.5 fL (9.4-12.4); Monocytes # 0.7 K/mcL (0.0-1.3); Monocytes % 8.2 %; Neutrophils # 6.6 K/mcL (1.6-8.9); Platelet Count 100 K/mcL (140-400); Red Blood Count 3.41 M/mcL (4.19-5.50); Red Cell Distribution Width 15.3 % (11.5-14.5); Segmented Neutrophils % 82.3 %
[2017-02-24 08:56] LABS: Alanine Aminotransferase 260 Units/L (0-55); Albumin 2.9 g/dL (3.5-5.0); Alkaline Phosphatase 193 Units/L (38-126); Aspartate Amino Transferase 199 Units/L (5-34); BUN/Creatinine Ratio 20 (6-26); Bilirubin,Total 2.9 mg/dL (0.2-1.2); Blood Urea Nitrogen 17 mg/dL (8-26); Calcium 8.1 mg/dL (8.6-10.8); Carbon Dioxide 30 mEq/L (19-29); Chloride 105 mEq/L (98-109); Globulin 2.9 g/dL (2.4-3.5); Glucose 87 mg/dL (70-99); Magnesium 1.9 mg/dL (1.6-2.6); Osmolality,Calculated 293 (280-300); Phosphorous 2.6 mg/dL (2.3-4.7); Potassium 4.4 mEq/L (3.5-4.5); Sodium 141 mEq/L (136-145); Total Protein 5.8 g/dL (6.0-8.3); eGFR For African Americans > 60 (> 60); eGFR For Non-African Americans > 60 (> 60)
[2017-02-24 08:57] LABS: Bilirubin,Direct 1.9 mg/dL (0.0-0.5)
[2017-02-24] MEDS ORDERED: Isosorbide MONOnitrate (24 HR) 60 MG TAB.ER.24H PO SCH (09:00)
[2017-02-24] MEDS ORDERED: Furosemide 40 MG TABLET PO SCH (09:00)
--- NOTE | 2017-02-24 09:12 | Electrocardiograph Report ---
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
[2017-02-24] MEDS: Pantoprazole 40 MG VIAL IVP SCH (09:19)
[2017-02-24] MEDS: Budesonide/Formoterol 160/4.5 MDI IH SCH (09:27)
[2017-02-24] MEDS ORDERED: Lidocaine -MPF 2% 2 ML VIAL ONE (13:21)
[2017-02-24] MEDS ORDERED: Dexamethasone 4 MG/ML VIAL ONE (13:21)
[2017-02-24] MEDS ORDERED: Ondansetron 4 MG/2 ML VIAL ONE (13:21)
[2017-02-24] MEDS ORDERED: *HR* FentaNYL (PF) 100 MCG/2 ML VIAL ONE ×2 (13:21→14:32)
[2017-02-24] MEDS ORDERED: *HR* Midazolam HCl 2 MG/2 ML VIAL ONE (13:22)
[2017-02-24] MEDS ORDERED: *HR* Propofol 200 MG/20 ML VIAL IVP ONE ×2 (13:22→15:43)
[2017-02-24] MEDS ORDERED: Neostigmine Methylsulfate 3 MG/3 ML SYRINGE ONE (13:58)
[2017-02-24] MEDS ORDERED: *HR* Rocuronium Bromide 50 MG/5 ML VIAL ONE ×2 (13:58→15:33)
[2017-02-24] MEDS ORDERED: Clindamycin 600 MG/50 ML 600 MG/50 ML IV.SOLN IVPB ONE (14:46)
[2017-02-24] MEDS ORDERED: *HR* Phenylephrine 10 MG/ML VIAL ONE (15:42)
[2017-02-24] MEDS ORDERED: Heparin 1,000 UNITS/500 mL NS 1,000 ML ONE (15:45)
[2017-02-24] MEDS ORDERED: 0.9 % Sodium Chloride 1,000 ML ONE ×2 (15:57→17:51)
[2017-02-24] MEDS ORDERED: *HR* Midazolam HCl 2 MG/2 ML VIAL IVP ONE (16:05)
[2017-02-24] MEDS ORDERED: FentaNYL (PF) 1,000 MCG in 0.9 % Sodium Chloride 80 ML IVC SCH (16:05)
[2017-02-24] MEDS ORDERED: Lacri-Lube 3.5 GM TUBE BOTH EYES SCH (16:05)
[2017-02-24] MEDS ORDERED: Ondansetron 4 MG/2 ML VIAL IVP PRN (16:05)
[2017-02-24] MEDS ORDERED: Lacri-Lube 3.5 GM TUBE BOTH EYES PRN (16:05)
[2017-02-24] MEDS ORDERED: Naloxone 0.4 MG/ML INJ IVP PRN (16:05)
--- NOTE | 2017-02-24 16:25 | Operative Note ---
Date of procedure: 02/24/17 Pre-op diagnosis: gallstone pancreatitis Post-op diagnosis: same (hemoperitoneum, liver hematoma and bleeding from the liver) Procedure: Laparoscopic converted to exploratory laparotomy, packing off liver bleeding and Abthera abdominal wound vac applied Complications: none immediate Anesthesia: DANIELE Surgeon: Janny Wheeler Shaker Operator Other: Chani Franks Estimated blood loss (cc): 400 IV fluids (cc): 1,400 (1400 cc crystalloid, 500 cc albumin) Specimen: none Condition: stable Disposition: PACU Procedure in Detail: Patient was brought to the operating suite and placed supine on the operating table. Sign in was performed and everyone was in agreement. Anesthesia was induced and patient was endotracheally intubated by anesthesia without incident. The abdomen was shaved and then prepped and draped in the usual sterile fashion. Timeout was performed again everyone was in agreement. Patient has an umbilical and a ventral incisional hernia. An incision in the left upper quadrant subcostal position was made with an 11 blade. A Veress needle was placed to this and a moderate drop test confirmed placement and the abdomen was insufflated. The abdomen was then entered with a 5 mm 0 degree laparoscope on a 5 mm X-Deni trocar. Immediately it was apparent that there was blood throughout the abdominal cavity, it did not appear to be pooling there was no obvious source. There was omentum within the ventral incisional hernia. An incision was made at the umbilicus with an 11 blade and a 12 mm port placed at this site under direct visualization. A 5 mm trocar was placed in the right upper quadrant subcostal position midclavicular line under direct visualization after first incising the skin with 11 blade. Another 5 mm port was placed in the right upper quadrant subcostal position anterior axillary line after first incising the skin with 11 blade. The abdomen was surveyed and there did not appear to be any welling up of blood within the abdominal cavity and nothing was obviously pooling. The omentum that was adherent to the anterior abdominal wall and within the hernia was bluntly dissected out of the hernia sac with laparoscopic DeBakeys and heated scissors. A 5 mm port was placed in the subxiphoid position after first incising skin with 11 blade was placed under direct visualization. The patient was placed in reverse Trendelenburg position and the omentum that was draped up over the liver was gently retracted down to the abdomen and immediately it was apparent there was a subcapsular hematoma, but it wasnt readily apparent if it ruptured, and there was brisk bleeding from the anterior liver and I was not able to precisely identify the source. The patient was immediately placed back in the supine position and the abdomen was entered in the midline with an 15 blade. We dissected through the subcutaneous tissue to the fascia with the Bovie. Kochers were placed on either side of the fascia for retraction and the abdomen was entered with the Bovie. The liver was immediately packed off with multiple (6-8) lap pads. A Bookwalter was placed for retraction. After several minutes , the lap pads in the right upper quadrant were removed and again brisk bleeding was seen at the anterior liver, appeared to be segment 5, near the gallbladder but I was not able to accuretely identify the source. The liver was again packed with 7 lap pads. The three 5 mm port sites were closed with 4- o monocryl interrupted subcuticular stitches. After 10 minutes with packing in place there was no welling up of blood at the liver and nothing obviously soaking through the lap pads. The packs were left in place. An abdominal Abthera wound vac closure device was placed. A miranda catheter was placed by the circulating nurse. The patient remained intubated and was taken from the OR to interventional radiology. There was a discrepancy in lap counts at the end of the case, 1 was unaccounted for and a kub done after showed one lap pad in the mid abdomen likely inferior to the incision which is likely the lap in question.
--- NOTE | 2017-02-24 16:40 | Pulmonology Consult Note ---
<Dorota Peralta - Last Filed: 02/24/17 17:27> Date of Encounter: 02/24/17 Time of Encounter: 16:37 Assessment and Plan (1) Liver hematoma Status: Acute Pt was found to have a hepatic hematoma today when he was in surgery for a lap mehnaz. The liver then began to bleed briskly and the liver was packed and closed with a wound vac. The estimated blood loss per anesthesia was 600 mL. They stated that the Pt vitals were stable throughout the procedure. He was given 2 units of albumin. The Pt was taken to IR and the liver was gel foamed. No area was found to coil. The Pt has bleeding noted from the wound vac at this time. It is mild. The Pt platelets were low so a 6 pack will be given. We will closely monitor the Pt Hgb/ Hct throughout the night. We will keep the Pt intubated and sedated throughout the night. The plan is to go back to surgery tomorrow. Plan: transfuse 6 pack of platelets transfuse 2 units prbcs Monitor Hgb/ Hct Q4 Back to surgery tomorrow sedation with proprofol and fentanyl DVT prophylaxis: EPCDs GI prophylaxis: protonix 40mg IV daily transfer Pt to [facility] Qualifiers: Encounter type: initial encounter Qualified Code(s): S36.112A - Contusion of liver, initial encounter (2) Gallstone pancreatitis Status: Acute Surgery on board (3) Coronary artery disease Status: Chronic Echo: LVEF 55% Moderate pulm hypertension Cardiology cleared for surgery Qualifiers: Coronary Disease-Associated Artery/Lesion type: bypass graft [place] vs. transplanted heart: [place] heart Associated angina: without angina Qualified Code(s): I25.810 - Atherosclerosis of coronary artery bypass graft(s) without angina pectoris (4) DVT prophylaxis Status: Acute EPCDs History of Present Illness Consult date: 02/24/17 Requesting physician: Janny Wheeler Reason for consult: other History of present illness: We are being consulted on a patient who was admitted to the hospital for possible pancreatitis. Dr. OCONNOR preformed an ERCP yesterday with stent placement. Dr Fontaine then took the Pt to surgery today for a laparoscopic cholecystectomy. It was noted that when she went in to his abdomen laproscopically that there was blood on the bowel. She stated that there was a large hematoma on the liver. Bleeding was brisk from the liver so the abdomen was packed with sponges and the Pt was sent to IR. The Pt vitals were stable throughout surgery. He was given 2 units albumin. The goal is to go back to surgery tomorrow to reassess the situation. The abdomen is closed with a wound vac that is draining a bloody discharge. The Pt is still intubated and sedated. His bowel sounds are hypoactive. Past Med Surg Social Fam HX - Past Medical History Medical history: atrial fibrillation, coronary artery disease, hyperlipidemia, hypertension, myocardial infarction, thyroid disease Psychiatric history: no psych history - Past Surgical History Surgical History: angioplasty/stent (multiple), coronary bypass (CABG) (3 vessel ), other (Atrial fibrillation ablation) - Social History Smoking Status: Former smoker Smokeless Tobacco Status: No Alcohol use: none Drug use: none - Family History Mother Living Status: Hx Family Neuromuscular Disorders: Yes (TB) Medications and Allergies Alendronate Sodium [Alendronate Sodium] 70 mg PO QWEEK 02/22/17 [History] Atorvastatin [Lipitor] 40 mg PO HS 02/22/17 [History] Budesonide/Formoterol 160/4.5 [Symbicort 160/4.5] 2 puff IH BID 02/22/17 [ History] Carvedilol [Coreg] 6.25 mg PO BID 02/22/17 [History] Clopidogrel [Plavix] 75 mg PO DAILY 02/22/17 [History] Ergocalciferol (VITAMIN D2) [Vitamin D2] 50,000 unit PO QWEEK 02/22/17 [History] Furosemide [Lasix] 40 mg PO DAILY 02/22/17 [History] Isosorbide MONOnitrate [Isosorbide Mononitrate ER] 120 mg PO DAILY 02/22/17 [ History] Montelukast [Singulair] 10 mg PO DAILY 02/22/17 [History] Nitroglycerin 02/22/17 [History] Potassium Chloride 20 meq PO DAILY 02/22/17 [History] Allergies No Known Allergies Allergy (Verified 02/21/17 21:50) ROS unobtainable: due to endotracheal tube All Systems: A 10-system review of systems was performed and is negative for pertinent findings except as documented above in the HPI. Results - Laboratory Findings CBC and BMP: 02/24/17 08:24 02/24/17 08:24 PT/INR, D-dimer PT 12.1 Seconds (9.4-12.1) 02/22/17 03:35 Abnormal lab findings: Abnormal lab results RBC 3.41 M/mcL (4.19-5.50) L 02/24/17 08:24 Hgb 10.0 g/dL (12.9-16.9) L 02/24/17 08:24 Hct 31.3 % (37.5-50.1) L 02/24/17 08:24 RDW 15.3 % (11.5-14.5) H 02/24/17 08:24 Plt Count 100 K/mcL (140-400) L 02/24/17 08:24 Carbon Dioxide 30 mEq/L (19-29) H 02/24/17 08:24 Calcium 8.1 mg/dL (8.6-10.8) L 02/24/17 08:24 Total Bilirubin 2.9 mg/dL (0.2-1.2) H 02/24/17 08:24 Direct Bilirubin 1.9 mg/dL (0.0-0.5) H 02/24/17 08:24 AST 199 Units/L (5-34) H 02/24/17 08:24 ALT 260 Units/L (0-55) H 02/24/17 08:24 Alkaline Phosphatase 193 Units/L (38-126) H 02/24/17 08:24 Lactate Dehydrogenase 512 Units/L (159-327) H 02/22/17 03:35 B-Natriuretic Peptide 106 pg/mL (0-100) H 02/21/17 22:05 Serum Total Protein 5.8 g/dL (6.0-8.3) L 02/24/17 08:24 Albumin 2.9 g/dL (3.5-5.0) L 02/24/17 08:24 Albumin/Globulin Ratio 1.0 (1.1-2.2) L 02/24/17 08:24 Amylase 160 Units/L (25-125) H 02/22/17 03:35 - Clinical Findings Intake & Output: Intake & Output 02/24/17 02/24/17 02/24/17 07:59 15:59 23:59 Intake Total 100 / 100 100 / 100 Output Total 750 / 750 0 / 0 600 / 600 Balance -650 / -650 100 / 100 -600 / -600 Weight 80.881 kg Consult Discharge Plan - Plan Referrals: Solis Crowder MD [Primary Care Provider] - <[email or web address] Cooley - Last Filed: 02/24/17 22:05> Date of Encounter: 02/24/17 All Systems: A 10-system review of systems was performed and is negative for pertinent findings except as documented above in the HPI. Physical Examination Vital Signs: Vital Signs, Last 4 Hours Temp Pulse Resp BP Pulse Ox 02/24/17 19:00 96.2 F L 74 18 116/66 100 02/24/17 18:47 96.8 F L 73 20 98/51 100 02/24/17 18:10 68 20 80/49 100 Ventilator Settings Ventilator Settings: Ventilator Settings, Last 8 Hours Ventilator Mode VC+ Ventilator Mode VC+ Ventilator Mode VC+ Ventilator Mode VC+ Ventilator Tidal Volume 450 Setting Ventilator Tidal Volume 450 Setting Ventilator Tidal Volume 450 Setting Ventilator Tidal Volume 450 Setting Ventilator Respiratory Rate 14 Setting Ventilator Respiratory Rate 14 Setting Ventilator Respiratory Rate 14 Setting Ventilator Respiratory Rate 14 Setting Actual Respiratory Rate 14 Actual Respiratory Rate 14 Actual Respiratory Rate 14 Positive End Expiratory 5 Pressure Positive End Expiratory 5 Pressure Positive End Expiratory 5 Pressure Positive End Expiratory 5 Pressure Peak Inspiratory Airway 24 Pressure Peak Inspiratory Airway 24 Pressure Peak Inspiratory Airway 23 Pressure Results - Laboratory Findings CBC and BMP: 02/24/17 17:38 02/24/17 08:24 ABG ABG pH 7.44 pH Units (7.32-7.45) 02/24/17 17:10 ABG pCO2 44 mmHg (35-45) 02/24/17 17:10 ABG pO2 434 mmHg (85-104) H 02/24/17 17:10 ABG O2 Saturation 100 % (95-98) H 02/24/17 17:10 PT/INR, D-dimer PT 12.1 Seconds (9.4-12.1) 02/22/17 03:35 Abnormal lab findings: Abnormal lab results RBC 3.41 M/mcL (4.19-5.50) L 02/24/17 08:24 Hgb 7.1 g/dL (12.9-16.9) L D 02/24/17 17:38 Hct 21.4 % (37.5-50.1) L 02/24/17 17:38 RDW 15.3 % (11.5-14.5) H 02/24/17 08:24 Plt Count 100 K/mcL (140-400) L 02/24/17 08:24 ABG pO2 434 mmHg (85-104) H 02/24/17 17:10 ABG HCO3 29.9 mEQ/L (21-27) H 02/24/17 17:10 ABG Total CO2 31.3 mEq/L (20-26) H 02/24/17 17:10 ABG O2 Saturation 100 % (95-98) H 02/24/17 17:10 ABG Base Excess 5.3 mEq/L (-2.0 to 3.0) H 02/24/17 17:10 Carbon Dioxide 30 mEq/L (19-29) H 02/24/17 08:24 POC Glucose 99 (58-89) H 02/24/17 16:55 Calcium 8.1 mg/dL (8.6-10.8) L 02/24/17 08:24 Total Bilirubin 2.9 mg/dL (0.2-1.2) H 02/24/17 08:24 Direct Bilirubin 1.9 mg/dL (0.0-0.5) H 02/24/17 08:24 AST 199 Units/L (5-34) H 02/24/17 08:24 ALT 260 Units/L (0-55) H 02/24/17 08:24 Alkaline Phosphatase 193 Units/L (38-126) H 02/24/17 08:24 Lactate Dehydrogenase 512 Units/L (159-327) H 02/22/17 03:35 B-Natriuretic Peptide 106 pg/mL (0-100) H 02/21/17 22:05 Serum Total Protein 5.8 g/dL (6.0-8.3) L 02/24/17 08:24 Albumin 2.9 g/dL (3.5-5.0) L 02/24/17 08:24 Albumin/Globulin Ratio 1.0 (1.1-2.2) L 02/24/17 08:24 Amylase 160 Units/L (25-125) H 02/22/17 03:35 - Clinical Findings Intake & Output: Intake & Output 02/24/17 02/24/17 02/24/17 07:59 15:59 23:59 Intake Total 100 / 100 100 / 100 900 / 900 Output Total 750 / 750 0 / 0 1800 / 1800 Balance -650 / -650 100 / 100 -900 / -900 Weight 80.881 kg - Attending Attestation I examined this patient and my medical decision-making was reviewed with the [employer] SUPERINTENDENT/PA/Advanced Practice Nurse/Resident Physician. I agree with the documented findings, disposition and treatment plan as described except to the extent set forth below. Patient seen and examined. Labs, radiology, chart personally reviewed. 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 Pulmonary: Acceptable oxygenation and ventilation and changed vent setting after he had ABG done with lowering RR and FIO2. Cardiovascular: Patient with hypotension due to blood loss and replaced with PRBC, fluid and Albumin. GI: Nutrition per dietary and GI prophylaxis per routine Heme: DVT prophylaxis per routine. Mechanical DVT prophylaxis, patient has blood loss anemia which is acute. ID: Antibiotics per surgery protocol Renal; urine out put and renal funtion reviewed Endorcine: blood glucose is monitored Lines: all lines checked and no evidence of infections Skin: skin care to prevent pressure ulcers per nursing routine care Discussed with Dr. Wheeler after patient had IR was not able to find source of bleeding and his BP start to drop and we both felt it will be better to transfer patient to [facility], which was done. I was with patient at bedside until patient was transferred out. I spent 45 min of Critical Care time with this patient. It involved decision making of high complexity to assess, manipulate, and support vital organ system failure and/or to prevent further life threatening deterioration of the patient' s condition. The time involved in the performance of separately reportable procedures was not counted toward critical care time.
[2017-02-24] MEDS ORDERED: Ipratropium/Albuterol Neb 3 ML IH PRN (17:06)
--- NOTE | 2017-02-24 17:13 | Event Note ---
Date of Encounter: 02/24/17 Time of Encounter: 17:10 Patient was seen and examined in ICU. He returned from the OR. He presented with acute pancreatitis and had a and cholecystectomy today. Laparoscopy found evidence of hepatic hematoma and he had an exploratory laparotomy. He is currently still intubated and was transferred to the ICU. His blood pressure are within normal range. He is sedated, heart is regular S1 and S2 with no murmurs, lungs are clear to auscultation bilaterally Plan: The patient will be cared for by ICU team. We will transfer over the care to the critical care service.
[2017-02-24 17:26] LABS: ABG Base Excess 5.3 mEq/L (-2.0 to 3.0); ABG HCO3 29.9 mEQ/L (21-27); ABG Oxygen Saturation 100 % (95-98); ABG PCO2 44 mmHg (35-45); ABG PH 7.44 pH Units (7.32-7.45); ABG PO2 434 mmHg (85-104); ABG TCO2 31.3 mEq/L (20-26)
[2017-02-24 17:27] LABS: Blood Gas FiO2 100 %; Blood Gas PEEP 5 cm H2O; Blood Gas Respiration Rate 14; Blood Gas VT 450 cc
[2017-02-24 17:43] LABS: Hematocrit 21.4 % (37.5-50.1)
[2017-02-24 17:52] LABS: Hemoglobin 7.1 g/dL (12.9-16.9)
[2017-02-24] MEDS ORDERED: 0.9 % Sodium Chloride 250 ML ONE (17:54)
[2017-02-24] MEDS ORDERED: Furosemide 20 MG/2 ML VIAL IVP ONE (18:11)
[2017-02-24] MEDS ORDERED: Albumin Human 5% 37.5 GM/750 ML VIAL ONE (18:28)
--- NOTE | 2017-02-24 18:36 | Event Note ---
Date of Encounter: 02/24/17 Time of Encounter: 18:23 Called [facility] to have patient transferred. Spoke with first a Dr Latif , and then a Dr Herbert (surgeon). Patient currently has 4 units packed cells ordered, one currently transfusing. There are apparently no platelets in the hospital and they would have to be brought from [place]. Patients BP was initially 122/70, 72, vented. Patients BP has been decreasing and is currently 81/50, HR remains stable at 71 but he has been on carvedilol. He had a 400 cc blood loss in OR and another [facility]. [facility] has ordered 1,000 of albumin. Will start pressors as needed for hypotension. Family has been spoken with and findings during OR, course during OR, IR intervention discussed with family and all questions answered.
[2017-02-24] MEDS ORDERED: 0.9 % Sodium Chloride 500 ML ONE (18:46)
[2017-02-24 19:12] VITALS: BP 116/66
[2017-02-24] MEDS ORDERED: Chlorhexidine Rinse 15 ML MOUTHWASH MM SCH (21:00)
[2017-02-24] MEDS ORDERED: Budesonide/Formoterol 160/4.5 MDI IH SCH (22:00)
--- NOTE | 2017-02-24 22:16 | Procedure Note ---
Date of procedure: 02/24/17 Pre-op diagnosis: Acute blood loss and hypotension Post-op diagnosis: same Procedure: Consent: Patient was on the ventilator and sedated, not able to give consent and family was not available and tried to reach them, but no answer. Because it was urgent to have an access, especially since patient was going to be transferred, Dr. Wheeler and myself signed urgent consent Procedure summary: A timeout was performed. The patient's right groin region was prepped and draped in sterile fashion using chlorhexidine scrub. Patient was already on pain medication. The right femoral vein was accessed under ultrasound guidance using a finder needle and sheath. Venous blood was withdrawn and the sheath was advanced into the vein and the needle was withdrawn. A guidewire was advanced through the sheath. A small incision was made with a 10 blade scalpel and the sheath was exchanged for a dilator over the guidewire until appropriate dilation was obtained. The dilator was removed and central venous triple-lumen catheter was advanced over the guidewire and secured into place with sutures. At the time of procedure completion, all ports aspirated and flushed properly. Complications: None Estimated blood loss: Minimal Anesthesia: IV sedation Surgeon: Myriam Ferrari Estimated blood loss (cc): 1 Pathology: none sent Condition: critical Disposition: ICU
[2017-02-25] MEDS ORDERED: cefOXitin 2,000 MG in D5% in Water (Mini-Bag+) 100 ML IVPB SCH
[2017-02-25] MEDS ORDERED: Pantoprazole 40 MG VIAL IVP SCH (09:00)
--- NOTE | 2017-03-22 19:23 | Discharge Summary ---
Date of Encounter: 02/24/17 Time of Encounter: 18:00 - Discharge Diagnosis (1) Gallstone pancreatitis Priority: Primary Status: Acute (2) Liver hematoma Priority: Secondary Status: Acute Qualifiers: Encounter type: initial encounter Qualified Code(s): S36.112A - Contusion of liver, initial encounter (3) Coronary artery disease Priority: Secondary Status: Chronic Qualifiers: Coronary Disease-Associated Artery/Lesion type: bypass graft [place] vs. transplanted heart: [place] heart Associated angina: without angina Qualified Code(s): I25.810 - Atherosclerosis of coronary artery bypass graft(s) without angina pectoris (4) Hyperlipidemia Priority: Secondary Status: Chronic Qualifiers: Hyperlipidemia type: mixed hyperlipidemia Qualified Code(s): E78.2 - Mixed hyperlipidemia - Discharge Medications Home Medications: Alendronate Sodium [Alendronate Sodium] 70 mg PO QWEEK 02/22/17 [History] Atorvastatin [Lipitor] 40 mg PO HS 02/22/17 [History] Budesonide/Formoterol 160/4.5 [Symbicort 160/4.5] 2 puff IH BID 02/22/17 [ History] Carvedilol [Coreg] 6.25 mg PO BID 02/22/17 [History] Clopidogrel [Plavix] 75 mg PO DAILY 02/22/17 [History] Ergocalciferol (VITAMIN D2) [Vitamin D2] 50,000 unit PO QWEEK 02/22/17 [History] Furosemide [Lasix] 40 mg PO DAILY 02/22/17 [History] Isosorbide MONOnitrate [Isosorbide Mononitrate ER] 120 mg PO DAILY 02/22/17 [ History] Montelukast [Singulair] 10 mg PO DAILY 02/22/17 [History] Nitroglycerin 02/22/17 [History] Potassium Chloride 20 meq PO DAILY 02/22/17 [History] Allergies/Adverse Reactions: Allergies No Known Allergies Allergy (Verified 02/21/17 21:50) Date of admission: 02/22/17 02:22 Primary care physician: Solis Crowder MD Consults: 02/22/17 03:09 Consult to Nutrition [CONS] Routine Comment: Consulting Provider: NUTRITION Reason for Dietary Consult: MST Score Consult to Multi Slide Machine Tender [CONS] Routine Reason for SW Consult: < 80Yr old 02/22/17 16:01 Consult to Occupational Therapy [CONS] Routine Comment: Evaluate, develop and implement POC Consult to Physical Therapy [CONS] Routine Comment: Evaluate, develop and implement POC; multiple fall 02/23/17 07:33 Consult to Surgery [CONS] Routine Consulting Provider: Surgery [facility] Reason for Consult: Gallstone pancreatitis Time Notified: :33 Call Completed: Yes 02/23/17 07:34 Consult to Cardiology [CONS] Routine Comment: Consulting Provider: Cardiology Rosita Reason for Consult: Pre op evaluation and clearance/ history of NC Time Notified: :34 Call Completed: Yes 02/24/17 16:09 Consult to Pulmonology [CONS] Stat Consulting Provider: Pulm Crit Care & Sleep [facility] Reason for Consult: critical care management Call Completed: Yes - Patient Status Disposition: Transfer Other Condition: Critical Functional capacity at discharge: bed bound Overall status at discharge: patient is not back to baseline - Discharge Instructions Follow Up With: Solis Crowder MD [Primary Care Provider] - - Diet and Activity Activity: other Diet: other Hospital course: Please refer to the consultation notes, operative notes, transfer notes and progress notes for further details of this patient's hospitalization. Briefly, Mr. Clark is a 82 year old male with past medical history significant for coronary artery disease who presented to the hospital due to sudden onset abdominal pain associated with nausea and vomiting. His imaging studies done in the emergency department revealed findings concerning for gallstones. His amylase was elevated and he was diagnosed with gallstone pancreatitis. He was admitted to the medical service. GI was consulted. They recommended EUS and ERCP. His lipase was elevated. General surgery was consulted and he was recommended to have inpatient cholecystectomy. Cardiology was consulted for preoperative clearance. He required no further cardiovascular workup. On 02/24 he was taken to the OR for laparoscopic cholecystectomy. Upon entering the abdominal cavity was noted that patient had abundant hemoperitoneum from a lacerated liver hematoma. Surgery was converted to laparotomy. Please see operative report for further details. The patient was transferred to the ICU still intubated. At this point I transferred care to the critical care team. Between the critical care team and primary surgeon and decision was made for patient to be transferred to a higher level of care. The patient was transferred to [facility] in a critical condition for further surgical treatment. - Time Spent with Patient Total time spent providing and/or coordinating discharge services: - Constitutional Vitals: Temp Pulse Resp BP Pulse Ox 96.2 F L 74 18 116/66 100 02/24/17 19:00 02/24/17 19:00 02/24/17 19:00 02/24/17 19:00 02/24/17 19:00 Exam: Intubated and sedated, in no acute distress - Respiratory Respiratory exam: Present: CTAB. Absent: accessory muscle use, rales, rhonchi, wheezes Additional comments: Presenting with the ventilator - Cardiovascular Cardiovascular exam: Present: RRR, +S1, +S2. Absent: diastolic murmur, gallop, rubs, systolic murmur - VTE Documentation of Mechanical Device: Intermittent pneumatic compression device
== END 2017-02-24 19:15 | disposition short-term general hospital (02) | DRG 420 ==
LOC: EMEROO 21:49 → 3ANU 21:49 → SUATTDRO 02-22 02:22 → ICNU 02-24 15:25
PROVIDERS: ADMIT Internal Medicine; ATTEND Internal Medicine

== ENCOUNTER 2017-04-06 05:16 | Inpatient (IN) ==
[2017-04-06] MEDS ORDERED: Ipratropium/Albuterol Neb 3 ML IH ONE (05:24)
[2017-04-06] MEDS ORDERED: 0.9 % Sodium Chloride 1,000 ML IVC ONE ×2 (05:27→07:51)
--- NOTE | 2017-04-06 05:29 | Emergency Department Note ---
Disposition Clinical Impression: Acute exacerbation of chronic obstructive airways disease Hypercapnic respiratory failure Qualifiers: Chronicity: acute Qualified Code(s): J96.02 - Acute respiratory failure with hypercapnia Disposition: Admitted As Inpatient Condition: Fair Referrals: NO,PCP [Primary Care Provider] - Forms: ED Satisfaction Letter Time of Disposition: 07:06 General Adult HPI - General Chief complaint: ED Shortness of Breath/Dyspnea Stated complaint: low oxygen Time Seen by Provider: 04/06/17 05:23 Nursing Notes Reviewed: Yes Vital Signs Reviewed: Yes - History of Present Illness HPI Narrative: Altered mental status low oxygen saturation being sent from the snf by EMS. - Related Data Home Medications Medication Instructions Recorded Confirmed Alendronate Sodium [Alendronate 70 mg PO QWEEK 02/22/17 02/22/17 Sodium] Atorvastatin [Lipitor] 40 mg PO HS 02/22/17 02/22/17 Budesonide/Formoterol 160/4.5 2 puff IH BID 02/22/17 02/22/17 [Symbicort 160/4.5] Carvedilol [Coreg] 6.25 mg PO BID 02/22/17 02/22/17 Clopidogrel [Plavix] 75 mg PO DAILY 02/22/17 02/22/17 Ergocalciferol (VITAMIN D2) 50,000 unit PO QWEEK 02/22/17 02/22/17 [Vitamin D2] Furosemide [Lasix] 40 mg PO DAILY 02/22/17 02/22/17 Isosorbide MONOnitrate [Isosorbide 120 mg PO DAILY 02/22/17 02/22/17 Mononitrate ER] Montelukast [Singulair] 10 mg PO DAILY 02/22/17 02/22/17 Nitroglycerin 02/22/17 Potassium Chloride 20 meq PO DAILY 02/22/17 02/22/17 Allergies Allergy/AdvReac Type Severity Reaction Status Date / Time albuterol Allergy See Verified 04/06/17 06:03 Comments Limitations: ROS unobtainable due to patients medical condition Past Medical History - Past Medical History Medical history: Reports: atrial fibrillation, coronary artery disease, hyperlipidemia, hypertension, myocardial infarction, thyroid disease Surgical history: Reports: angioplasty/stent (multiple), coronary bypass (CABG) (3 vessel), other (Atrial fibrillation ablation) Psychiatric history: Reports: no psych history - Social History Smoking Status: Former smoker Smokeless Tobacco Status: No Alcohol use: Reports: none Drug use: Reports: none Physical Exam - General Limitations: no limitations General appearance: alert, other (Makes eye contact when he talked to him nonverbal.) - Head Head exam: atraumatic, normocephalic, normal inspection - Eye Eye exam: Present: normal appearance, PERRL, EOMI, scleral icterus - ENT ENT exam: normal exam, normal oropharynx, mucous membranes moist - Neck Neck exam: Present: normal inspection, full ROM, trachea midline - Chest Chest inspection: Present: normal inspection, symmetric chest wall rise. Absent : tenderness - Respiratory Respiratory exam: Present: wheezes (Mild upper airway wheezing). Absent: respiratory distress - Cardiovascular Cardiovascular exam: Present: normal rhythm, tachycardia, normal heart sounds - Abdominal Exam Abdominal exam: Present: soft, Non-Tender, normal bowel sounds. Absent: tenderness, distention, guarding, rigidity, organomegaly - Extremities Exam Extremities exam: Present: normal inspection, full ROM, normal capillary refill. Absent: tenderness, pedal edema - Neurological Exam Neurological exam: Present: alert, other - Psychiatric Psychiatric exam: Present: normal affect, normal mood - Skin Skin exam: Present: warm, dry (We will look at you when asked but is nonverbal at this time.), intact, normal color. Absent: rash, cyanosis, diaphoresis Course Course Narrative: Male patient presenting from the snf by EMS. EMS was called for an unresponsive male. He does respond to verbal stimuli they stated that he is on a nonrebreather at 8 L all night at the snf. He does have a history of COPD. They state they placed a nonrebreather on 15 L in the marissa from 88% to 94%. - Reevaluation(s) Reevaluation #1: I spoke with the family. They are agreeable to the treatment at this time. With the exception of the albuterol. They are insistent that albuterol caused a heart attack in him in the past. They are agreeable to Xopenex treatment. They stated they were at bedside with him last night at 8 PM and he was mentating appropriately. The states that he has been short of breath for the past week. While on the paperwork from the snf the patient has COPD the family is very adamant that he does not. ABG showed an increased CO2. We have placed patient on BiPAP anticipating that this was the cause of his altered mental status. We will leave patient on BiPAP. Time: 05:38 Reevaluation #2: Patient clinically has pneumonia. His chest x-ray is significantly worsened from his previous chest x-ray. There is minimal airspace that he is aerating. He does have a white count. He is hypercapnic. We have placed him on BiPAP. His oxygen saturation is maintaining in the high 90s. I discussed with patient' s family at length admission to the hospital. They are agreeable to this. We will start patient on triple antibiotic therapy as he has been on IV antibiotics within the past 90 days. We will leave patient on BiPAP this time. He is a full code and does wish to be intubated if needed. Time: 06:33 Vital Signs Temperature 98.5 F 04/06/17 05:25 Pulse Rate 110 04/06/17 05:25 Respiratory Rate 25 04/06/17 05:25 Blood Pressure 165/84 04/06/17 05:25 O2 Sat by Pulse Oximetry 99 04/06/17 05:25 Temperature 98.5 F 04/06/17 05:25 Pulse Rate 104 04/06/17 06:58 Respiratory Rate 18 04/06/17 06:58 Blood Pressure 125/71 04/06/17 06:58 O2 Sat by Pulse Oximetry 100 04/06/17 06:58 Oxygen Delivery Oxygen Delivery Bipap Medical Decision Making - Lab Data Result diagrams: 04/06/17 05:46 04/06/17 05:46 Lab Results 04/06/17 04/06/17 04/06/17 Range/Units 05:38 05:46 05:46 WBC 16.7 H (4.3-11.1) K/mcL RBC 3.21 L (4.19-5.50) M/mcL Hgb 9.1 L (12.9-16.9) g/dL Hct 30.0 L (37.5-50.1) % MCV 93.5 (83.0-100.0) fL MCH 28.3 (28.0-33.3) pg MCHC 30.3 L (31.6-35.5) g/dL RDW 14.3 (11.5-14.5) % Plt Count 291 (140-400) K/mcL MPV 8.1 L (9.4-12.4) fL Immature Gran % 0.6 (0-4) % Seg Neutrophils % 85.2 % Lymphocytes % 4.5 % Monocytes % 9.1 % Eosinophils % 0.4 % Basophils % 0.2 % Neutrophils # 14.3 H (1.6-8.9) K/mcL Lymphocytes # 0.8 (0.6-4.6) K/mcL Monocytes # 1.5 H (0.0-1.3) K/mcL Eosinophils # 0.1 (0.0-0.6) K/mcL Basophils # 0.0 (0.0-0.2) K/mcL ABG pH 7.22 L (7.32-7.45) pH Units ABG pCO2 111 H* (35-45) mmHg ABG pO2 96 (85-104) mmHg ABG HCO3 45.4 H (21-27) mEQ/L ABG Total CO2 48.8 H (20-26) mEq/L ABG O2 Saturation 96 (95-98) % ABG Base Excess 14.5 H (-2.0 to 3.0) mEq/L Blood Gas Modality NRB Inspired O2 100 % Sodium 137 (136-145) mEq/L Potassium 4.3 (3.5-4.5) mEq/L Chloride 91 L (98-109) mEq/L Carbon Dioxide 38 H (19-29) mEq/L BUN 19 (8-26) mg/dL Creatinine 0.79 (0.72-1.25) mg/dL Est GFR ( Amer) > 60 (> 60) Est GFR (Non-Af Amer) > 60 (> 60) BUN/Creatinine Ratio 24 (6-26) Glucose 129 H (70-99) mg/dL Calculated Osmolality 288 (280-300) Lactic Acid (0.5-2.2) mmol/L Calcium 8.7 (8.6-10.8) mg/dL Phosphorus 5.0 H (2.3-4.7) mg/dL Magnesium 1.9 (1.6-2.6) mg/dL Total Bilirubin 0.7 (0.2-1.2) mg/dL Direct Bilirubin 0.4 (0.0-0.5) mg/dL Indirect Bilirubin 0.3 (0.0-1.2) mg/dL AST 17 (5-34) Units/L ALT 15 (0-55) Units/L Alkaline Phosphatase 91 (38-126) Units/L Troponin I (0-0.03) ng/mL Serum Total Protein 7.4 (6.0-8.3) g/dL Albumin 2.7 L (3.5-5.0) g/dL Globulin 4.7 H (2.4-3.5) g/dL Albumin/Globulin Ratio 0.6 L (1.1-2.2) 04/06/17 04/06/17 Range/Units 05:46 05:46 WBC (4.3-11.1) K/mcL RBC (4.19-5.50) M/mcL Hgb (12.9-16.9) g/dL Hct (37.5-50.1) % MCV (83.0-100.0) fL MCH (28.0-33.3) pg MCHC (31.6-35.5) g/dL RDW (11.5-14.5) % Plt Count (140-400) K/mcL MPV (9.4-12.4) fL Immature Gran % (0-4) % Seg Neutrophils % % Lymphocytes % % Monocytes % % Eosinophils % % Basophils % % Neutrophils # (1.6-8.9) K/mcL Lymphocytes # (0.6-4.6) K/mcL Monocytes # (0.0-1.3) K/mcL Eosinophils # (0.0-0.6) K/mcL Basophils # (0.0-0.2) K/mcL ABG pH (7.32-7.45) pH Units ABG pCO2 (35-45) mmHg ABG pO2 (85-104) mmHg ABG HCO3 (21-27) mEQ/L ABG Total CO2 (20-26) mEq/L ABG O2 Saturation (95-98) % ABG Base Excess (-2.0 to 3.0) mEq/L Blood Gas Modality Inspired O2 % Sodium (136-145) mEq/L Potassium (3.5-4.5) mEq/L Chloride (98-109) mEq/L Carbon Dioxide (19-29) mEq/L BUN (8-26) mg/dL Creatinine (0.72-1.25) mg/dL Est GFR ( Amer) (> 60) Est GFR (Non-Af Amer) (> 60) BUN/Creatinine Ratio (6-26) Glucose (70-99) mg/dL Calculated Osmolality (280-300) Lactic Acid 0.9 (0.5-2.2) mmol/L Calcium (8.6-10.8) mg/dL Phosphorus (2.3-4.7) mg/dL Magnesium (1.6-2.6) mg/dL Total Bilirubin (0.2-1.2) mg/dL Direct Bilirubin (0.0-0.5) mg/dL Indirect Bilirubin (0.0-1.2) mg/dL AST (5-34) Units/L ALT (0-55) Units/L Alkaline Phosphatase (38-126) Units/L Troponin I 0.05 H* (0-0.03) ng/mL Serum Total Protein (6.0-8.3) g/dL Albumin (3.5-5.0) g/dL Globulin (2.4-3.5) g/dL Albumin/Globulin Ratio (1.1-2.2) - EKG Data EKG #1 EKG attestation: Yes I reviewed and interpreted this EKG. EKG results narrative: Sinus tachycardia rate of 111. QRS duration is 106. QT is 300 QTc is 365. No signs of acute ischemia. No significant change from previous EKG dated February. Critical Care Time Critical Care Time: Yes Total Critical Care Time: 60 Attestation: Critical care performed: Time is exclusive of separately billable procedures. Time includes: direct patient care, patient reassessment, coordination of patient care, interpretation of data (laboratory data, radiology data, and respiratory data), review of patient's medical records, medical consultation and documentation of patient care. Procedures included in critical care time: Procedures excluded from critical care time: S.B.A.R. - S.B.A.R. Background: Presenting Complaint (Altered mental status.) Assessment: Course and respsone to treatment (Patient hypercapnic. Placed him on BiPAP. As pneumonia. AAA Dimitrios therapy started. Needs admission to the ICU. ) Recommendation: Recommendation based on pending studies, treatments, or consults (Admission.) S.B.A.R. Report Given to: Margarita Bloom Repor Time: 06:44 Attestation Statement - Attestation Attestation: I, Kishore Benites MD, personally evaluated this patient and discussed their management with the resident physician. I reviewed the resident's note and agree with the documented findings, medical decision making, and plan of care. 82-year-old male sent to the emergency department from a local snf for altered mental status. Patient reportedly had some shortness of breath earlier in the night and was placed on a nonrebreather mask at 8 L/m. Around 4 AM when they checked on the patient he was unresponsive. On arrival here the patient does respond mildly to verbal stimuli but unable to provide any history or review of systems. On examination patient is a well-developed elderly male in no acute distress. He is on a nonrebreather mask with oxygen saturation of 99%. No cyanosis or diaphoresis. Breath sounds are markedly decreased bilaterally with some bibasilar rales. Heart regular with a mild tachycardia. Abdomen soft with normal bowel sounds. Labs reviewed. Chest x-ray shows bilateral airspace disease. EKG shows sinus tachycardia. Patient was placed on BiPAP. At shift change the patient is signed out to the oncoming dayshift team, Dr. Blanco and Dr. Avila.
[2017-04-06] MEDS ORDERED: Levalbuterol Neb 1.25 MG/3 ML IH ONE (05:37)
[2017-04-06 05:45] LABS: ABG Base Excess 14.5 mEq/L (-2.0 to 3.0); ABG HCO3 45.4 mEQ/L (21-27); ABG Oxygen Saturation 96 % (95-98); ABG PH 7.22 pH Units (7.32-7.45); ABG PO2 96 mmHg (85-104); ABG TCO2 48.8 mEq/L (20-26); Blood Gas FiO2 100 %
[2017-04-06 05:47] LABS: ABG PCO2 111 mmHg (35-45)
[2017-04-06 05:56] LABS: Basophils % 0.2 %; Eosinophils # 0.1 K/mcL (0.0-0.6); Eosinophils % 0.4 %; Hemoglobin 9.1 g/dL (12.9-16.9); Immature Granulocytes % 0.6 % (0-4); Lymphocytes # 0.8 K/mcL (0.6-4.6); Lymphocytes % 4.5 %; Mean Corpuscular HGB Conc 30.3 g/dL (31.6-35.5); Mean Corpuscular Hemoglobin 28.3 pg (28.0-33.3); Mean Corpuscular Volume 93.5 fL (83.0-100.0); Mean Platelet Volume 8.1 fL (9.4-12.4); Monocytes # 1.5 K/mcL (0.0-1.3); Monocytes % 9.1 %; Neutrophils # 14.3 K/mcL (1.6-8.9); Platelet Count 291 K/mcL (140-400); Red Blood Count 3.21 M/mcL (4.19-5.50); Red Cell Distribution Width 14.3 % (11.5-14.5); Segmented Neutrophils % 85.2 %
[2017-04-06 06:12] LABS: Alanine Aminotransferase 15 Units/L (0-55); Albumin 2.7 g/dL (3.5-5.0); Albumin/Globulin Ratio 0.6 (1.1-2.2); Alkaline Phosphatase 91 Units/L (38-126); Aspartate Amino Transferase 17 Units/L (5-34); BUN/Creatinine Ratio 24 (6-26); Bilirubin,Direct 0.4 mg/dL (0.0-0.5); Bilirubin,Indirect 0.3 mg/dL (0.0-1.2); Bilirubin,Total 0.7 mg/dL (0.2-1.2); Blood Urea Nitrogen 19 mg/dL (8-26); Calcium 8.7 mg/dL (8.6-10.8); Carbon Dioxide 38 mEq/L (19-29); Chloride 91 mEq/L (98-109); Globulin 4.7 g/dL (2.4-3.5); Glucose 129 mg/dL (70-99); Magnesium 1.9 mg/dL (1.6-2.6); Osmolality,Calculated 288 (280-300); Potassium 4.3 mEq/L (3.5-4.5); Sodium 137 mEq/L (136-145); Total Protein 7.4 g/dL (6.0-8.3); eGFR For African Americans > 60 (> 60); eGFR For Non-African Americans > 60 (> 60)
[2017-04-06] MEDS ORDERED: Piperacillin/Tazobactam 4.5 GM in D5% in Water (Mini-Bag+) 100 ML IVPB ONE (06:30)
[2017-04-06] MEDS ORDERED: Levofloxacin 750 MG/150 ML 750 MG/150 ML BAG IVPB ONE (06:32)
[2017-04-06] MEDS ORDERED: Vancomycin 1,250 MG in D5% in Water 250 ML IVPB ONE (06:32)
--- NOTE | 2017-04-06 07:19 | Emergency Department Note ---
Disposition Clinical Impression: Acute exacerbation of chronic obstructive airways disease Hypercapnic respiratory failure Qualifiers: Chronicity: acute Qualified Code(s): J96.02 - Acute respiratory failure with hypercapnia Disposition: Admitted As Inpatient Condition: Fair Referrals: NO,PCP [Non-Partnered Physician] - Forms: ED Satisfaction Letter General Adult HPI - General Chief complaint: ED Shortness of Breath/Dyspnea Stated complaint: low oxygen Time Seen by Provider: 04/06/17 05:23 Source: family, EMS Limitations: no limitations Nursing Notes Reviewed: Yes Vital Signs Reviewed: Yes - History of Present Illness Pain Scale: 0 - Related Data Home Medications Medication Instructions Recorded Confirmed Alendronate Sodium [Alendronate 70 mg PO QWEEK 02/22/17 02/22/17 Sodium] Atorvastatin [Lipitor] 40 mg PO HS 02/22/17 02/22/17 Budesonide/Formoterol 160/4.5 2 puff IH BID 02/22/17 02/22/17 [Symbicort 160/4.5] Carvedilol [Coreg] 6.25 mg PO BID 02/22/17 02/22/17 Clopidogrel [Plavix] 75 mg PO DAILY 02/22/17 02/22/17 Ergocalciferol (VITAMIN D2) 50,000 unit PO QWEEK 02/22/17 02/22/17 [Vitamin D2] Furosemide [Lasix] 40 mg PO DAILY 02/22/17 02/22/17 Isosorbide MONOnitrate [Isosorbide 120 mg PO DAILY 02/22/17 02/22/17 Mononitrate ER] Montelukast [Singulair] 10 mg PO DAILY 02/22/17 02/22/17 Nitroglycerin 02/22/17 Potassium Chloride 20 meq PO DAILY 02/22/17 02/22/17 Allergies Allergy/AdvReac Type Severity Reaction Status Date / Time albuterol Allergy See Verified 04/06/17 06:03 Comments Past Medical History - Past Medical History Medical history: Reports: atrial fibrillation, coronary artery disease, hyperlipidemia, hypertension, myocardial infarction, thyroid disease Surgical history: Reports: angioplasty/stent (multiple), coronary bypass (CABG) (3 vessel), other (Atrial fibrillation ablation) Psychiatric history: Reports: no psych history - Social History Smoking Status: Former smoker Smokeless Tobacco Status: No Alcohol use: Reports: none Drug use: Reports: none Physical Exam - General Limitations: no limitations General appearance: alert, other (Makes eye contact when he talked to him nonverbal.) Course Vital Signs Temperature 98.5 F 04/06/17 05:25 Pulse Rate 110 04/06/17 05:25 Respiratory Rate 25 04/06/17 05:25 Blood Pressure 165/84 04/06/17 05:25 O2 Sat by Pulse Oximetry 99 04/06/17 05:25 Temperature 98.5 F 04/06/17 05:25 Pulse Rate 109 04/06/17 07:34 Respiratory Rate 14 04/06/17 07:34 Blood Pressure 119/100 04/06/17 07:34 O2 Sat by Pulse Oximetry 100 04/06/17 07:34 Oxygen Delivery Oxygen Delivery Bipap Medical Decision Making - MDM Narrative Medical decision making narrative: Patient was a sign out from the evening ER physician Dr. Benites and Dr. Peralta. They were waiting on hospitalist call back. Patient history of COPD and CHF. He has an elevated PCO2 from the half-way after being on a nonrebreather mask there. Patient has had dyspnea but has had no coughing or fevers the family is aware of. His chest x-ray here looks like a pneumonia. Were going out on a BMP a repeat VBG since he has been on BiPAP and tolerated that well. His only been started on antibiotics by the evening staff and his labs are back except the BMP and repeat VBG. The troponins also elevated with no chest pain we will repeat an EKG this morning and then speak with hospitalist for admission. Family is in agreement with this plan. At this point waiting on urinalysis repeat labs. Social 736 hours: Patient a repeat EKG it shows a sinus tachycardia with a rate of 109, QRS of 101 QTC 345, no signs of acute ischemia, patient had a EKG done earlier this morning that shows no changes except for rate. EKG was read on the machine as atrial fibrillation but there are P waves there in a regular rhythm slight disagree with that reading. I spoke with the hospitalist they have accepted the patient were still waiting on the VBG and the urinalysis at this point. Updated family. They are in agreement with this plan. Impression is hyper cardia, bilateral pulmonary infiltrates consistent with pneumonia, COPD and history of CHF. Rule out UTI. 0753 hours: Patient's ABG shows an increase in his PCO2 from before despite being on BiPAP with a decrease in his pH. His bicarbonate is stated essentially the same. I may speak with intensivists to see if they want to manage him in the ICU if they have beds will also talk with him about doing intubation on the patient to help lower his PCO2 versus the BiPAP he has now. And a boxer going down there was not a lactate ordered last evening in order that. Given fluids but keep that low with his history of CHF and his lungs do sound wet at this time slight fluid overload so we will give him the bolus that he has but will not do the protocol for fluids and sepsis orders due to fluid overload precautions. 2 0800 hrs.: Respiratory therapist is going to adjust his BiPAP to see if he can tolerate that better and started intubating him. Family would prefer that. I spoke with the engineer assistant he said that we would contact the patient in to the ICU. Discussed case with them he had no other changes at this time. We are pending his BMP. He has got his lactate pending. His second liter of fluid. And his urinalysis. Patient's critical care time is 20 separately billable procedures is 30 minutes. - Lab Data Result diagrams: 04/06/17 05:46 04/06/17 05:46 Lab Results 04/06/17 04/06/17 04/06/17 Range/Units 05:38 05:46 05:46 WBC 16.7 H (4.3-11.1) K/mcL RBC 3.21 L (4.19-5.50) M/mcL Hgb 9.1 L (12.9-16.9) g/dL Hct 30.0 L (37.5-50.1) % MCV 93.5 (83.0-100.0) fL MCH 28.3 (28.0-33.3) pg MCHC 30.3 L (31.6-35.5) g/dL RDW 14.3 (11.5-14.5) % Plt Count 291 (140-400) K/mcL MPV 8.1 L (9.4-12.4) fL Immature Gran % 0.6 (0-4) % Seg Neutrophils % 85.2 % Lymphocytes % 4.5 % Monocytes % 9.1 % Eosinophils % 0.4 % Basophils % 0.2 % Neutrophils # 14.3 H (1.6-8.9) K/mcL Lymphocytes # 0.8 (0.6-4.6) K/mcL Monocytes # 1.5 H (0.0-1.3) K/mcL Eosinophils # 0.1 (0.0-0.6) K/mcL Basophils # 0.0 (0.0-0.2) K/mcL ABG pH 7.22 L (7.32-7.45) pH Units ABG pCO2 111 H* (35-45) mmHg ABG pO2 96 (85-104) mmHg ABG HCO3 45.4 H (21-27) mEQ/L ABG Total CO2 48.8 H (20-26) mEq/L ABG O2 Saturation 96 (95-98) % ABG Base Excess 14.5 H (-2.0 to 3.0) mEq/L Blood Gas Modality NRB Inspired O2 100 % Sodium 137 (136-145) mEq/L Potassium 4.3 (3.5-4.5) mEq/L Chloride 91 L (98-109) mEq/L Carbon Dioxide 38 H (19-29) mEq/L BUN 19 (8-26) mg/dL Creatinine 0.79 (0.72-1.25) mg/dL Est GFR ( Amer) > 60 (> 60) Est GFR (Non-Af Amer) > 60 (> 60) BUN/Creatinine Ratio 24 (6-26) Glucose 129 H (70-99) mg/dL Calculated Osmolality 288 (280-300) Lactic Acid (0.5-2.2) mmol/L Calcium 8.7 (8.6-10.8) mg/dL Phosphorus 5.0 H (2.3-4.7) mg/dL Magnesium 1.9 (1.6-2.6) mg/dL Total Bilirubin 0.7 (0.2-1.2) mg/dL Direct Bilirubin 0.4 (0.0-0.5) mg/dL Indirect Bilirubin 0.3 (0.0-1.2) mg/dL AST 17 (5-34) Units/L ALT 15 (0-55) Units/L Alkaline Phosphatase 91 (38-126) Units/L Troponin I (0-0.03) ng/mL B-Natriuretic Peptide (0-100) pg/mL Serum Total Protein 7.4 (6.0-8.3) g/dL Albumin 2.7 L (3.5-5.0) g/dL Globulin 4.7 H (2.4-3.5) g/dL Albumin/Globulin Ratio 0.6 L (1.1-2.2) 04/06/17 04/06/17 04/06/17 Range/Units 05:46 05:46 05:46 WBC (4.3-11.1) K/mcL RBC (4.19-5.50) M/mcL Hgb (12.9-16.9) g/dL Hct (37.5-50.1) % MCV (83.0-100.0) fL MCH (28.0-33.3) pg MCHC (31.6-35.5) g/dL RDW (11.5-14.5) % Plt Count (140-400) K/mcL MPV (9.4-12.4) fL Immature Gran % (0-4) % Seg Neutrophils % % Lymphocytes % % Monocytes % % Eosinophils % % Basophils % % Neutrophils # (1.6-8.9) K/mcL Lymphocytes # (0.6-4.6) K/mcL Monocytes # (0.0-1.3) K/mcL Eosinophils # (0.0-0.6) K/mcL Basophils # (0.0-0.2) K/mcL ABG pH (7.32-7.45) pH Units ABG pCO2 (35-45) mmHg ABG pO2 (85-104) mmHg ABG HCO3 (21-27) mEQ/L ABG Total CO2 (20-26) mEq/L ABG O2 Saturation (95-98) % ABG Base Excess (-2.0 to 3.0) mEq/L Blood Gas Modality Inspired O2 % Sodium (136-145) mEq/L Potassium (3.5-4.5) mEq/L Chloride (98-109) mEq/L Carbon Dioxide (19-29) mEq/L BUN (8-26) mg/dL Creatinine (0.72-1.25) mg/dL Est GFR ( Amer) (> 60) Est GFR (Non-Af Amer) (> 60) BUN/Creatinine Ratio (6-26) Glucose (70-99) mg/dL Calculated Osmolality (280-300) Lactic Acid 0.9 (0.5-2.2) mmol/L Calcium (8.6-10.8) mg/dL Phosphorus (2.3-4.7) mg/dL Magnesium (1.6-2.6) mg/dL Total Bilirubin (0.2-1.2) mg/dL Direct Bilirubin (0.0-0.5) mg/dL Indirect Bilirubin (0.0-1.2) mg/dL AST (5-34) Units/L ALT (0-55) Units/L Alkaline Phosphatase (38-126) Units/L Troponin I 0.05 H* (0-0.03) ng/mL B-Natriuretic Peptide 263 H (0-100) pg/mL Serum Total Protein (6.0-8.3) g/dL Albumin (3.5-5.0) g/dL Globulin (2.4-3.5) g/dL Albumin/Globulin Ratio (1.1-2.2) 04/06/17 Range/Units 07:31 WBC (4.3-11.1) K/mcL RBC (4.19-5.50) M/mcL Hgb (12.9-16.9) g/dL Hct (37.5-50.1) % MCV (83.0-100.0) fL MCH (28.0-33.3) pg MCHC (31.6-35.5) g/dL RDW (11.5-14.5) % Plt Count (140-400) K/mcL MPV (9.4-12.4) fL Immature Gran % (0-4) % Seg Neutrophils % % Lymphocytes % % Monocytes % % Eosinophils % % Basophils % % Neutrophils # (1.6-8.9) K/mcL Lymphocytes # (0.6-4.6) K/mcL Monocytes # (0.0-1.3) K/mcL Eosinophils # (0.0-0.6) K/mcL Basophils # (0.0-0.2) K/mcL ABG pH 7.19 L* (7.32-7.45) pH Units ABG pCO2 120 H* (35-45) mmHg ABG pO2 170 H (85-104) mmHg ABG HCO3 45.8 H (21-27) mEQ/L ABG Total CO2 49.5 H (20-26) mEq/L ABG O2 Saturation 99 H (95-98) % ABG Base Excess 14.0 H (-2.0 to 3.0) mEq/L Blood Gas Modality Bipap Inspired O2 80 % Sodium (136-145) mEq/L Potassium (3.5-4.5) mEq/L Chloride (98-109) mEq/L Carbon Dioxide (19-29) mEq/L BUN (8-26) mg/dL Creatinine (0.72-1.25) mg/dL Est GFR ( Amer) (> 60) Est GFR (Non-Af Amer) (> 60) BUN/Creatinine Ratio (6-26) Glucose (70-99) mg/dL Calculated Osmolality (280-300) Lactic Acid (0.5-2.2) mmol/L Calcium (8.6-10.8) mg/dL Phosphorus (2.3-4.7) mg/dL Magnesium (1.6-2.6) mg/dL Total Bilirubin (0.2-1.2) mg/dL Direct Bilirubin (0.0-0.5) mg/dL Indirect Bilirubin (0.0-1.2) mg/dL AST (5-34) Units/L ALT (0-55) Units/L Alkaline Phosphatase (38-126) Units/L Troponin I (0-0.03) ng/mL B-Natriuretic Peptide (0-100) pg/mL Serum Total Protein (6.0-8.3) g/dL Albumin (3.5-5.0) g/dL Globulin (2.4-3.5) g/dL Albumin/Globulin Ratio (1.1-2.2)
[2017-04-06 07:40] LABS: ABG HCO3 45.8 mEQ/L (21-27); ABG Oxygen Saturation 99 % (95-98); ABG PO2 170 mmHg (85-104); ABG TCO2 49.5 mEq/L (20-26)
[2017-04-06 07:41] LABS: Blood Gas FiO2 80 %
[2017-04-06 07:43] LABS: ABG PCO2 120 mmHg (35-45); ABG PH 7.19 pH Units (7.32-7.45)
[2017-04-06] MEDS ORDERED: *HR* Etomidate 20 MG/10 ML AMPUL IVP ONE (08:00)
[2017-04-06] MEDS ORDERED: *HR* Midazolam HCl 5 MG/5 ML VIAL IVP ONE (08:00)
[2017-04-06 08:31] LABS: Activated Partial Thrombo Time 23.7 Seconds (26.0-36.0)
[2017-04-06] MEDS ORDERED: Naloxone 0.4 MG/ML INJ IVP PRN (09:29)
[2017-04-06] MEDS ORDERED: Ondansetron 4 MG/2 ML VIAL IVP PRN (09:29)
--- NOTE | 2017-04-06 09:33 | Pulmonology History & Physical ---
<Vic Greenwood W - Last Filed: 04/06/17 15:12> Date of Encounter: 04/06/17 History of Present Illness HPI: Mr. Clark is a 82 year old male Medications and Allergies Alendronate Sodium [Alendronate Sodium] 70 mg PO TU 02/22/17 [History] Atorvastatin [Lipitor] 40 mg PO HS 02/22/17 [History] Clopidogrel [Plavix] 75 mg PO DAILY 02/22/17 [History] Montelukast [Singulair] 10 mg PO HS 02/22/17 [History] Budesonide/Formoterol 160/4.5 [Symbicort 160/4.5] 2 puff IH BIDR 04/06/17 [ History] Diltiazem CD (24hr) [Cardizem CD] 240 mg PO DAILY 04/06/17 [History] Furosemide [Lasix] 40 mg PO BID 04/06/17 [History] HYDROcodone/Acet 5/325 mg [[place] 5-325 mg] 2 tab PO Q4H PRN 04/06/17 [History] Ipratropium/Albuterol Neb [Duoneb] 3 ml IH 0000,0600,1200,1800 PRN 04/06/17 [ History] Lipase/Protease/Amylase [[place] Dr 12,000 Units Capsule] 1 each PO TIDWM [History] Omeprazole [PriLOSEC] 40 mg PO DAILY 04/06/17 [History] Saline Nasal [place] [[place] Nasal [place]] 2 spr NS Q2H PRN 04/06/17 [History] Sennosides/Docusate Sodium [Senna-Docusate Sodium Tablet] 1 each PO HS PRN 04/06 [History] Simethicone [Bicarsim] 80 mg PO TIDWM 04/06/17 [History] Allergies albuterol Allergy (Verified 04/06/17 08:38) See Comments pt family states that it caused his PA All Systems: A 10-system review of systems was performed and is negative for pertinent findings except as documented above in the HPI. Physical Examination Vital Signs: Vital Signs, Last 4 Hours Temp Pulse Resp BP Pulse Ox 04/06/17 09:30 97 F L 96 29 117/75 100 04/06/17 08:35 14 101/59 Results - Laboratory Findings CBC and BMP: 04/06/17 05:46 04/06/17 05:46 ABG ABG pH 7.19 pH Units (7.32-7.45) L* 04/06/17 07:31 ABG pCO2 120 mmHg (35-45) H* 04/06/17 07:31 ABG pO2 170 mmHg (85-104) H 04/06/17 07:31 ABG O2 Saturation 99 % (95-98) H 04/06/17 07:31 Abnormal lab findings: Abnormal lab results WBC 16.7 K/mcL (4.3-11.1) H 04/06/17 05:46 RBC 3.21 M/mcL (4.19-5.50) L 04/06/17 05:46 Hgb 9.1 g/dL (12.9-16.9) L 04/06/17 05:46 Hct 30.0 % (37.5-50.1) L 04/06/17 05:46 MCHC 30.3 g/dL (31.6-35.5) L 04/06/17 05:46 MPV 8.1 fL (9.4-12.4) L 04/06/17 05:46 Neutrophils # 14.3 K/mcL (1.6-8.9) H 04/06/17 05:46 Monocytes # 1.5 K/mcL (0.0-1.3) H 04/06/17 05:46 APTT 23.7 Seconds (26.0-36.0) L 04/06/17 08:10 ABG pH 7.19 pH Units (7.32-7.45) L* 04/06/17 07:31 ABG pCO2 120 mmHg (35-45) H* 04/06/17 07:31 ABG pO2 170 mmHg (85-104) H 04/06/17 07:31 ABG HCO3 45.8 mEQ/L (21-27) H 04/06/17 07:31 ABG Total CO2 49.5 mEq/L (20-26) H 04/06/17 07:31 ABG O2 Saturation 99 % (95-98) H 04/06/17 07:31 ABG Base Excess 14.0 mEq/L (-2.0 to 3.0) H 04/06/17 07:31 Chloride 91 mEq/L (98-109) L 04/06/17 05:46 Carbon Dioxide 38 mEq/L (19-29) H 04/06/17 05:46 Glucose 129 mg/dL (70-99) H 04/06/17 05:46 Phosphorus 5.0 mg/dL (2.3-4.7) H 04/06/17 05:46 Troponin I 0.05 ng/mL (0-0.03) H* 04/06/17 05:46 B-Natriuretic Peptide 263 pg/mL (0-100) H 04/06/17 05:46 Albumin 2.7 g/dL (3.5-5.0) L 04/06/17 05:46 Globulin 4.7 g/dL (2.4-3.5) H 04/06/17 05:46 Albumin/Globulin Ratio 0.6 (1.1-2.2) L 04/06/17 05:46 - Attending Attestation I examined this patient and my medical decision-making was reviewed with the CUSTODY OFFICER/PA/Advanced Practice Nurse/Resident Physician. I agree with the documented findings, disposition and treatment plan as described except to the extent set forth below. I spent 40min of Critical Care time with this patient. It involved decision making of high complexity to assess, manipulate, and support vital organ system failure and/or to prevent further life threatening deterioration of the patient' s condition. The time involved in the performance of separately reportable procedures was not counted toward critical care time. Patient seen and examined at bedside Labs, radiology, chart personally reviewed. All lines examined without evidence of infection. Neuropsych: presented with AMS but now awake and tired appearing but easily arrousable and appropriate and can follow simple commands. Suspect underlying Co2 narcosis impacting mental status Pulm: Acute on chronic hypoxic hypercapnic respiratory failure suspected this is multifactorial including musculoskeletal deformity chronic heart failure underlying COPD possible pneumonia and muscle weakness. Patient failed noninvasive ventilation and needed intubated. Repeat ABG pending post intubation. he is also recieving scheduled bronchodilators and IV steroids. Cards: History of CAD s/p CABG mild trop elevation suspect type 2 PA checking ECHO trend troponin FEN-GI:NPO for now. GI prophylaxis if intubated Renal: no JOHANNY miranda placed monitor urine output with Miranda catheter ID: leuckocytosis with concern for sepsis. ?PNA, vs CLABSI and also was recently treated for urinary tract infection at [facility] facility, he is on broad-spectrum antibiotics to cover for broadly including MRSA/PSDA. Dave CT ordered for persistent leukocytosis over the last week Heme/Onc: DVT prophylaxis with Heparin Endo: Glucose monitored. Integ/MSK: skin care per ICU protocol CODE: Full code. I updated the family including his next of kin and adult daughter <Lonnie Restrepo - Last Filed: 04/06/17 18:48> Date of Encounter: 04/06/17 Time of Encounter: 09:33 Assessment and Plan (1) Acute on chronic respiratory failure with hypoxia and hypercapnia Current visit: Yes Status: Acute suspect underlying hypoxemia and hypercapnia secondary to musculoskeletal abnormalities, chronic heart failure, COPD, and possible pneumonia - initial ABG 7.22/111/96/45.4/48.8/96/14.5 on NRB - improved with BiPAP but due to fatigue and tachypnea was intubated - post 1 hour ABG 7.55/46/105/40.2/41.6/99/15.9 vent settings changed to address overcorrected resp alkalosis, decreased respirations to 16 from 22, Vt 450, 50% FiO2 and PEEP 5 awaiting another ABG continue to monitor scheduled duonebs and IV solumedrol (2) Acute exacerbation of chronic obstructive airways disease Current visit: Yes Status: Acute history of COPD diminished sounds and expiratory wheezes symptoms of dyspnea, increased cough, and sputum production scheduled bronchodilators - adverse reaction to Albuterol, scheduled Xopenex IV Solumedrol 40 mg BID (3) Acute respiratory failure Current visit: Yes Status: Acute patient became tachypneic and unresponsive to verbal stimuli after failed NIPVV intervention, patient intubated for protection of airway and respiratory failure from fatigue anesthesia was at bedside for assistance intubated with fiberoptic CXR reveals proper placement of ETT Qualifiers: Respiratory failure complication: hypoxia and hypercapnia Qualified Code(s) : J96.01 - Acute respiratory failure with hypoxia; J96.02 - Acute respiratory failure with hypercapnia (4) Difficult airway for intubation Current visit: Yes Status: Acute severe cervical kyphosis anesthesia called to bedside for assistance intubated successfully with fiberoptic CXR confirms proper placement of ETT Qualifiers: Encounter type: initial encounter Qualified Code(s): T88.4XXA - Failed or difficult intubation, initial encounter (5) Cervical kyphosis Current visit: Yes Status: Chronic reportedly secondary fracture and osteoporosis limited neck movement Qualifiers: Kyphosis type: unspecified Qualified Code(s): M40.202 - Unspecified kyphosis, cervical region (6) Sepsis Current visit: Yes Status: Acute meets SIRS criteria leukocytosis 16.7 and tachycardia presumable source is pulmonary vs. urinary vs. left PICC blood infection patient remains afebrile BP stable lactate normal 04/06 downtrending 0.9 --> 0.8 --> 0.6 CT chest/abd/pelvis 04/06, shows bilateral lower lobe opacities, calcified pleural plaques, pulm hypertension, no abdominal findings moderate diffuse colonic stool burden will continue to monitor Qualifiers: Sepsis type: sepsis due to unspecified organism Qualified Code(s): A41.9 - Sepsis, unspecified organism (7) HCAP (healthcare-associated pneumonia) Current visit: Yes Status: Acute patient reports several days of dyspnea, cough, and sputum production recent hospitalizations at [facility] CXR and CT chest 04/06 suggestive of pneumonia vs. atelectasis empirical treatment with triple antibiotic Levo, Vanc, and Zosyn awaiting blood cultures urine antigens negative (8) Altered mental status Current visit: Yes Status: Acute likely secondary to CO2 narcosis and sepsis currently he is intubated to protect airway and altered mentation CT head 04/06 does not demonstrate acute intracranial abnormality such as hemorrhage or midline shift but is a limited exam urine shows large leuk esterase and TNTC WBC and many bacteria, history of UTI treating empirically for HCAP with Zosyn, Vanc, and Levoquin - will await urine and blood cultures CXR and CT Chest 04/06 concerning for confluent bilateral lower lobe opacifications for atelectasis vs. infiltrate, he has loculated pleural fluid collections and calcified pleural plaques Qualifiers: Altered mental status type: unspecified Qualified Code(s): R41.82 - Altered mental status, unspecified (9) Elevated troponin Current visit: Yes Status: Acute elevated troponin 0.05 likely due to demand ischemia - repeat troponin 0.14, will continue to trend - EKG atrial fibrillation with normal ventricular response, no ischemic changes - may consider cardio consult he denies any chest pain stat ECHO ordered, results pending (10) Diastolic congestive heart failure Current visit: Yes Status: Chronic reported previous admission to [facility] for acute exacerbation of CHF within last 3 weeks - will attempt to obtain records last ECHO 02/23 was sub-optimal but showed EF 55%, normal LV systolic function, atypical septal motion, normal diastolic function and mild TR and moderated pulm HTN RVSP = 58 mmHg continue home meds Dig level 0.8 monitor I/O Qualifiers: Congestive heart failure chronicity: unspecified congestive heart failure chronicity Qualified Code(s): I50.30 - Unspecified diastolic (congestive) heart failure (11) Coronary artery disease Current visit: No Status: Chronic significant history of CAD s/p CABG (1983 and repeat 2001) and multiple stents continue home medications Qualifiers: Coronary Disease-Associated Artery/Lesion type: bypass graft [place] vs. transplanted heart: [place] heart Associated angina: without angina Qualified Code(s): I25.810 - Atherosclerosis of coronary artery bypass graft(s) without angina pectoris (12) Atrial fibrillation Current visit: Yes Status: Chronic history of atrial fibrillation with ablation per medical records atrial fibrillation with normal ventricular response home medication Cardizem 240 ER but will give Cardizem 60mg Q8H IV Lopressor PRN Qualifiers: Atrial fibrillation type: unspecified Qualified Code(s): I48.91 - Unspecified atrial fibrillation (13) Pleural plaque Current visit: Yes Status: Chronic possible asbestos exposure visualized on CT Chest 04/06 review of old records shows evidence in 2013 follow up as outpatient recommended (14) Anemia Current visit: Yes Status: Chronic history of liver hematoma and hemorrhage hgb 9.1 no signs of active bleeding continue to monitor Qualifiers: Anemia type: unspecified type Qualified Code(s): D64.9 - Anemia, unspecified (15) AV fistula Current visit: Yes Status: Acute patient and family aware of AV fistula in right arm denies any history of kidney failure or dialysis suspect this was from heart catheterization and CABG in 1983 palpable thrill and audible bruit (16) Difficult intravenous access Current visit: Yes Status: Acute patient presents with left PICC in upper arm - reports recent IV antibiotics at [facility] for suspected UTI CT Chest appears to show tip of PICC in the right atrium, suggested to pull back 4 cm to proximal SVC an additional EPIV placed in left upper arm (17) DVT prophylaxis Current visit: Yes 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 As the day progressed became more unresponsive required intubated, lightly sedated on Fentanyl gtt and Versed Pulm: suspect acute on chronic hypoxeic hypercapnic respiratory failure from MSK abnormalities, COPD, and possible pneumonia. Currently intubated with fiberoptic after failed NIPPV Card: history of CAD, vitals stable, mild trop elevated likely 2/2 to demand ischemia, continue to trend 0.05 --> 0.14, awaiting ECHO, CT chest shows mildly enlarged central pulm arteries to suggest pulm hypertension FEN-GI: GI prophylaxis, CT abd/pelvis without acute findings Renal: miranda catheter with good UOP, 20 mg Lasix, no JOHANNY, continue to monitor ID: leukocytosis concerning for sepsis 2/2 COPD, pneumonia, blood borne infection from left PICC, blood cultures pending, treated for UTI in SNF with left PICC, currently on triple antibiotics. Dave CT scan does not show anything acute Heme/Onc: anemia, continue to monitor, DVT prophylaxis with Heparin Endo: glucose monitored MSK: skin care per ICU protocol Lines: left PICC, left EPIV, OG, miranda History of Present Illness Chief complaint: AMS, dyspnea HPI: Mr. Clark is a 82 year old male admitted to the ICU for altered mental status and acute on chronic respiratory failure secondary to hypercapnia and hypoxemia. History of present illness initially obtained through medical records from ED. Patient is a poor historian. Patient is a resident at [facility] and was reportedly unresponsive early this morning requiring transfer via EMS to the ED. Family was with the patient prior to that night at 1999 and reports that he was mentating appropriately. He had several days of dyspnea and last night was the worst. He was recently admitted here at [place] for cholecystectomy which was complicated and required transfer to [place]. Since then he has been a resident at [facility] where he has been requiring oxygen supplementation, prior to the cholecystectomy he did not require any. He has not been feeling well over the past several days with increase cough, sputum production, and shortness of breath. Denies any chest pain, abdominal pain, or diarrhea. Initial presentation he was responsive to verbal stimuli, he was afebrile and tachycardia concerning for sepsis. ABG shows severe hypercapnia pCO2 111, upon further review and repeat his respiratory acidosis appeared to be acute on chronic. CXR reviewed, shows diffuse interstitial and alveolar airspace opacities concerning for pulmonary edema or infectious process and also pleural effusion and calcified pleural plaques. Significant change from prior CXR in the past. Review of medical records, patient has a past medical history of atrial fibrillation s/p ablation, COPD, coronary arterial disease status post CABG x2 and multiple stents, hyperlipidemia, and cholecystectomy. Records obtained from [facility]. Patient was discharged to [facility] from [facility] for rehab s/p cholecysectomy and hemorrhagic shock. During his initial stay at SNF he was being treated for a UTI with Vanc and Cefepime, awaiting cultures, this was seen on progress note 03/24. Unsure of duration but he has a left PICC in place. Upon medication review he was taking Digoxin 0.125mg and increased Lasix to 40 mg. He had multiple days of a leukocytosis and dyspnea as well. Family was at bedside and added additional history, appears he was recently admitted to [facility] for acute exacerbation of congestive heart failure. wishes for him to be full code. Will obtain further records from prior hospitalizations. Past Med Surg Social Fam HX - Past Medical History Medical history: atrial fibrillation, coronary artery disease, hyperlipidemia, hypertension, myocardial infarction, thyroid disease Psychiatric history: no psych history - Past Surgical History Surgical History: angioplasty/stent (multiple), coronary bypass (CABG) (3 vessel ), other (Atrial fibrillation ablation) - Social History Smoking Status: Former smoker Smokeless Tobacco Status: No Alcohol use: none Drug use: none - Family History Mother Living Status: Hx Family Neuromuscular Disorders: Yes (TB) ROS unobtainable: due to mental status (assisted by family) All Systems: A 10-system review of systems was performed and is negative for pertinent findings except as documented above in the HPI. Physical Examination Vital Signs: Vital Signs, Last 4 Hours Temp Pulse Resp BP Pulse Ox 04/06/17 09:30 97 F L 96 29 117/75 100 04/06/17 08:35 14 101/59 General appearance: alert (easily arousable and oriented to person, place, and time), other (mild respiratory distress, frail appearing) Eyes: nonicteric ENT: oropharynx moist Mallampati (class): 2 Neck: no JVD, other (severe cervical kyphosis) Effort: mildly labored Inspection: kyphosis (cervical) Auscultation: bilateral: diminished breath sounds, wheezes Cardiovascular: irregular rhythm Gastrointestinal: normoactive bowel sounds, soft, non-tender, non-distended, other (large midline incisional scar) Integumentary: other (chronic venous stasis in bilat LE, AV fistula in right arm with palpable thrill and audible bruit) Extremities: no edema, pulses normal, other (chronic venous stasis) Musculoskeletal: no deformities non-focal exam, pupils equal and round, unable to assess due to mental status PICC in left upper arm Results - Laboratory Findings CBC and BMP: 04/06/17 05:46 04/06/17 15:20 ABG ABG pH 7.19 pH Units (7.32-7.45) L* 04/06/17 07:31 ABG pCO2 120 mmHg (35-45) H* 04/06/17 07:31 ABG pO2 170 mmHg (85-104) H 04/06/17 07:31 ABG O2 Saturation 99 % (95-98) H 04/06/17 07:31 Abnormal lab findings: Abnormal lab results WBC 16.7 K/mcL (4.3-11.1) H 04/06/17 05:46 RBC 3.21 M/mcL (4.19-5.50) L 04/06/17 05:46 Hgb 9.1 g/dL (12.9-16.9) L 04/06/17 05:46 Hct 30.0 % (37.5-50.1) L 04/06/17 05:46 MCHC 30.3 g/dL (31.6-35.5) L 04/06/17 05:46 MPV 8.1 fL (9.4-12.4) L 04/06/17 05:46 Neutrophils # 14.3 K/mcL (1.6-8.9) H 04/06/17 05:46 Monocytes # 1.5 K/mcL (0.0-1.3) H 04/06/17 05:46 APTT 23.7 Seconds (26.0-36.0) L 04/06/17 08:10 ABG pH 7.19 pH Units (7.32-7.45) L* 04/06/17 07:31 ABG pCO2 120 mmHg (35-45) H* 04/06/17 07:31 ABG pO2 170 mmHg (85-104) H 04/06/17 07:31 ABG HCO3 45.8 mEQ/L (21-27) H 04/06/17 07:31 ABG Total CO2 49.5 mEq/L (20-26) H 04/06/17 07:31 ABG O2 Saturation 99 % (95-98) H 04/06/17 07:31 ABG Base Excess 14.0 mEq/L (-2.0 to 3.0) H 04/06/17 07:31 Chloride 91 mEq/L (98-109) L 04/06/17 05:46 Carbon Dioxide 38 mEq/L (19-29) H 04/06/17 05:46 Glucose 129 mg/dL (70-99) H 04/06/17 05:46 Phosphorus 5.0 mg/dL (2.3-4.7) H 04/06/17 05:46 Troponin I 0.05 ng/mL (0-0.03) H* 04/06/17 05:46 B-Natriuretic Peptide 263 pg/mL (0-100) H 04/06/17 05:46 Albumin 2.7 g/dL (3.5-5.0) L 04/06/17 05:46 Globulin 4.7 g/dL (2.4-3.5) H 04/06/17 05:46 Albumin/Globulin Ratio 0.6 (1.1-2.2) L 04/06/17 05:46 - Diagnostic Findings Chest x-ray: report reviewed, image reviewed CT scan - chest: pending
[2017-04-06 09:58] LABS: Bilirubin,Urine Negative (Negative); Blood,Urine Trace (Negative); Color,Urine Yellow (Yellow); Glucose,Urine (UA) Normal (Normal); Ketones,Urine Negative (Negative); Leukocyte Esterase,Urine Large (Negative); Nitrite,Urine Negative (Negative); Protein,Urine 30 mg/dL (Neg-Trace); Specific Gravity,Urine 1.017 (1.010-1.025); Urobilinogen,Urine Normal (Normal)
[2017-04-06] MEDS ORDERED: Piperacillin/Tazobactam 3.375 GM in D5% in Water (Mini-Bag+) 100 ML IVPB ONE (10:00)
[2017-04-06 10:02] LABS: Clarity,Urine Clear (Clear); Hyaline Casts,Urine None Seen per lpf (None-Few); WBC,Urine TNTC per hpf (0-3)
[2017-04-06 10:04] LABS: Bacteria,Urine Many per hpf (None-Few)
[2017-04-06 10:05] LABS: Squamous Epithelial Cell,Urine Few per lpf (None-Few)
[2017-04-06 10:12] LABS: ABG Base Excess 15.4 mEq/L (-2.0 to 3.0); ABG HCO3 45.8 mEQ/L (21-27); ABG Oxygen Saturation 99 % (95-98); ABG PH 7.26 pH Units (7.32-7.45); ABG PO2 131 mmHg (85-104); ABG TCO2 48.9 mEq/L (20-26)
[2017-04-06 10:14] LABS: ABG PCO2 102 mmHg (35-45)
[2017-04-06 10:15] LABS: Blood Gas FiO2 60 %
[2017-04-06 10:41] LABS: INR 1.2; Prothrombin Time 13.1 Seconds (9.4-12.1)
[2017-04-06] MEDS ORDERED: MethylPREDNISolone 40 MG/ML VIAL IVP ONE (11:42)
[2017-04-06] MEDS ORDERED: Furosemide 20 MG/2 ML VIAL IVP ONE (11:45)
[2017-04-06] MEDS ORDERED: *HR* Metoprolol 5 MG/5 ML VIAL IVP ONE (12:39)
[2017-04-06 13:01] LABS: ABG Base Excess 13.2 mEq/L (-2.0 to 3.0); ABG HCO3 42.3 mEQ/L (21-27); ABG Oxygen Saturation 99 % (95-98); ABG PH 7.28 pH Units (7.32-7.45); ABG PO2 139 mmHg (85-104); ABG TCO2 45.1 mEq/L (20-26)
[2017-04-06] MEDS: *HR* Heparin 5,000 UNIT/ML VIAL SQ SCH ×2 (13:01→21:13)
[2017-04-06 13:03] LABS: Blood Gas FiO2 60 %
[2017-04-06 13:05] LABS: ABG PCO2 90 mmHg (35-45)
[2017-04-06] MEDS ORDERED: Tetracaine/Benzocaine/Butamben 200MG/SPRAY (100SPY/BOT) MM ONE (14:11)
[2017-04-06] MEDS ORDERED: Norepinephrine 4 MG in D5% in Water 250 ML IVC SCH (14:15)
[2017-04-06] MEDS ORDERED: *HR* FentaNYL (PF) 100 MCG/2 ML VIAL ONE (14:29)
[2017-04-06] MEDS ORDERED: Sennosides/Docusate Sodium TABLET PO PRN (14:33)
--- NOTE | 2017-04-06 15:11 | Procedure Note ---
Date of procedure: 04/06/17 Pre-op diagnosis: Respiratory Failure Post-op diagnosis: same Procedure: Time out was deffered as the procedure was emergent.. The patient was placed in a upright position. 2% cetacaine spray was used in the posterior oropharynx along with 4mg of etomidate.. The patient was intubated under direct fiberoptic guidance the vocal cords were visulaize and the fiberiotpic scope was passed into the trachea and subsequntly a 7.5 -syriac endotracheal tube was advanced over the fiberoptic scope. Colorimetric change was visualized on the CO2 meter. Breath sounds were heard in both lung ndiaye equally. The endotracheal tube was placed at 24 cm, measured at the lips A chest x-ray was ordered and is pending at this time to assess for pneumothorax and verify ETT placement. Anesthesia service was present at bedside to assist with procedure Surgeon: Vic Greenwood Condition: critical Disposition: ICU
[2017-04-06] MEDS: FentaNYL (PF) 1,000 MCG in 0.9 % Sodium Chloride 80 ML IVC SCH ×2 (15:32→21:19)
[2017-04-06] MEDS: Ipratropium Neb 0.5 MG NEBULIZER IH SCH ×2 (15:32→21:56)
[2017-04-06] MEDS: Levalbuterol Neb 1.25 MG/3 ML IH SCH ×2 (15:32→21:56)
--- NOTE | 2017-04-06 15:50 | Electrocardiograph Report ---
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
[2017-04-06] MEDS ORDERED: Levalbuterol 1 PUFF INHALER IH SCH (16:00)
[2017-04-06] MEDS ORDERED: Ipratropium 1 PUFF INHALER IH SCH (16:00)
[2017-04-06 16:26] LABS: ABG Base Excess 15.9 mEq/L (-2.0 to 3.0); ABG HCO3 40.2 mEQ/L (21-27); ABG Oxygen Saturation 99 % (95-98); ABG PCO2 46 mmHg (35-45); ABG PH 7.55 pH Units (7.32-7.45); ABG PO2 105 mmHg (85-104); ABG TCO2 41.6 mEq/L (20-26)
[2017-04-06 16:27] LABS: Blood Gas FiO2 50 %; Blood Gas Respiration Rate 22; Blood Gas VT 450 cc
[2017-04-06] MEDS: Simethicone 80 MG TAB.CHEW PO SCH (16:51)
[2017-04-06] MEDS: MethylPREDNISolone 40 MG/ML VIAL IVP SCH (16:51)
[2017-04-06 16:55] LABS: Amylase 44 Units/L (25-125); Lipase 23 Units/L (8-78)
[2017-04-06] MEDS ORDERED: Furosemide 20 MG/2 ML VIAL IVP SCH (17:00)
[2017-04-06] MEDS: Piperacillin/Tazobactam 3.375 GM in D5% in Water (Mini-Bag+) 100 ML IVPB SCH (17:02)
[2017-04-06] MEDS: *HR* Midazolam HCl 2 MG/2 ML VIAL IVP PRN ×2 (17:11→19:30)
[2017-04-06 18:04] LABS: BUN/Creatinine Ratio 28 (6-26); Blood Urea Nitrogen 22 mg/dL (8-26); Calcium 8.4 mg/dL (8.6-10.8); Carbon Dioxide 32 mEq/L (19-29); Chloride 92 mEq/L (98-109); Glucose 101 mg/dL (70-99); Magnesium 1.7 mg/dL (1.6-2.6); Osmolality,Calculated 287 (280-300); Potassium 4.5 mEq/L (3.5-4.5); Sodium 137 mEq/L (136-145); eGFR For African Americans > 60 (> 60); eGFR For Non-African Americans > 60 (> 60)
[2017-04-06] MEDS: Vancomycin 1,250 MG in D5% in Water 250 ML IVPB SCH (18:06)
[2017-04-06] MEDS ORDERED: *HR* Metoprolol 5 MG/5 ML VIAL IVP PRN (18:38)
[2017-04-06 18:51] LABS: ABG Base Excess 14.5 mEq/L (-2.0 to 3.0); ABG HCO3 38.5 mEQ/L (21-27); ABG Oxygen Saturation 99 % (95-98); ABG PCO2 45 mmHg (35-45); ABG PH 7.54 pH Units (7.32-7.45); ABG PO2 129 mmHg (85-104); ABG TCO2 39.9 mEq/L (20-26)
[2017-04-06 18:53] LABS: Blood Gas FiO2 50 %; Blood Gas PEEP 5 cm H2O; Blood Gas Respiration Rate 16; Blood Gas VT 450 cc
[2017-04-06 19:47] LABS: ABG Base Excess 18.5 mEq/L (-2.0 to 3.0); ABG HCO3 44.2 mEQ/L (21-27); ABG Oxygen Saturation 99 % (95-98); ABG PCO2 58 mmHg (35-45); ABG PH 7.49 pH Units (7.32-7.45); ABG PO2 114 mmHg (85-104)
[2017-04-06 19:48] LABS: Blood Gas FiO2 50 %
[2017-04-06 23:33] LABS: ABG Base Excess 13.8 mEq/L (-2.0 to 3.0); ABG HCO3 39.8 mEQ/L (21-27); ABG Oxygen Saturation 99 % (95-98); ABG PCO2 60 mmHg (35-45); ABG PH 7.43 pH Units (7.32-7.45); ABG PO2 116 mmHg (85-104); ABG TCO2 41.6 mEq/L (20-26)
[2017-04-06 23:38] LABS: Blood Gas FiO2 50 %
[2017-04-07] MEDS: Piperacillin/Tazobactam 3.375 GM in D5% in Water (Mini-Bag+) 100 ML IVPB SCH ×3 (03:06→17:02)
[2017-04-07] MEDS: FentaNYL (PF) 1,000 MCG in 0.9 % Sodium Chloride 80 ML IVC SCH ×2 (03:07→13:09)
[2017-04-07 03:10] LABS: Basophils % 0.1 %; Hematocrit 24.6 % (37.5-50.1); Hemoglobin 7.9 g/dL (12.9-16.9); Immature Granulocytes % 0.4 % (0-4); Lymphocytes # 0.6 K/mcL (0.6-4.6); Lymphocytes % 8.3 %; Mean Corpuscular HGB Conc 32.1 g/dL (31.6-35.5); Mean Corpuscular Hemoglobin 28.5 pg (28.0-33.3); Mean Corpuscular Volume 88.8 fL (83.0-100.0); Mean Platelet Volume 8.5 fL (9.4-12.4); Monocytes # 0.3 K/mcL (0.0-1.3); Monocytes % 3.3 %; Neutrophils # 6.6 K/mcL (1.6-8.9); Platelet Count 254 K/mcL (140-400); Red Blood Count 2.77 M/mcL (4.19-5.50); Red Cell Distribution Width 13.8 % (11.5-14.5); Segmented Neutrophils % 87.9 %
[2017-04-07 03:23] LABS: BUN/Creatinine Ratio 33 (6-26); Blood Urea Nitrogen 28 mg/dL (8-26); Carbon Dioxide 33 mEq/L (19-29); Chloride 92 mEq/L (98-109); Glucose 116 mg/dL (70-99); Ionized Calcium 1.02 mmol/L (1.15-1.35); Magnesium 1.5 mg/dL (1.6-2.6); Osmolality,Calculated 288 (280-300); Phosphorous 3.5 mg/dL (2.3-4.7); Potassium 3.7 mEq/L (3.5-4.5); Sodium 136 mEq/L (136-145); eGFR For African Americans > 60 (> 60); eGFR For Non-African Americans > 60 (> 60)
[2017-04-07 04:02] LABS: ABG Base Excess 15.7 mEq/L (-2.0 to 3.0); ABG HCO3 41.7 mEQ/L (21-27); ABG Oxygen Saturation 99 % (95-98); ABG PCO2 60 mmHg (35-45); ABG PH 7.45 pH Units (7.32-7.45); ABG PO2 113 mmHg (85-104); ABG TCO2 43.5 mEq/L (20-26)
[2017-04-07 04:03] LABS: Blood Gas FiO2 50 %
[2017-04-07] MEDS: Ipratropium Neb 0.5 MG NEBULIZER IH SCH ×4 (04:04→22:00)
[2017-04-07] MEDS: Levalbuterol Neb 1.25 MG/3 ML IH SCH ×4 (04:04→22:00)
[2017-04-07] MEDS: *HR* Heparin 5,000 UNIT/ML VIAL SQ SCH ×3 (06:13→22:23)
[2017-04-07] MEDS: MethylPREDNISolone 40 MG/ML VIAL IVP SCH ×2 (06:13→17:01)
[2017-04-07] MEDS: Vancomycin 1,250 MG in D5% in Water 250 ML IVPB SCH ×2 (06:14→18:29)
[2017-04-07] MEDS: Simethicone 80 MG TAB.CHEW PO SCH ×3 (07:03→15:26)
[2017-04-07] MEDS: *HR* Digoxin 0.125 MG TABLET PO SCH (07:32)
[2017-04-07] MEDS: Pantoprazole 40 MG VIAL IVP SCH (07:33)
[2017-04-07] MEDS: Norepinephrine 4 MG in D5% in Water 250 ML IVC SCH (08:16)
--- NOTE | 2017-04-07 08:29 | Pulmonology Progress Note ---
<Vic Greenwood W - Last Filed: 04/07/17 11:26> Date of Encounter: 04/07/17 Objective PUL Vital signs: Last Vital Signs Temp 97.0 F L 04/07/17 08:12 Pulse 78 04/07/17 08:00 Resp 15 04/07/17 08:00 BP 102/61 04/07/17 08:00 Pulse Ox 100 04/07/17 08:00 Ventilator Settings Ventilator Settings: Ventilator Settings, Last 8 Hours Ventilator Mode VC+ Ventilator Mode VC+ Ventilator Mode VC+ Ventilator Mode VC+ Ventilator Mode VC+ Ventilator Mode VC+ Ventilator Mode VC+ Ventilator Mode VC+ Ventilator Tidal Volume 400 Setting Ventilator Tidal Volume 400 Setting Ventilator Tidal Volume 400 Setting Ventilator Tidal Volume 400 Setting Ventilator Tidal Volume 400 Setting Ventilator Tidal Volume 400 Setting Ventilator Tidal Volume 400 Setting Ventilator Tidal Volume 400 Setting Ventilator Respiratory Rate 12 Setting Ventilator Respiratory Rate 12 Setting Ventilator Respiratory Rate 12 Setting Ventilator Respiratory Rate 12 Setting Ventilator Respiratory Rate 12 Setting Ventilator Respiratory Rate 12 Setting Ventilator Respiratory Rate 12 Setting Ventilator Respiratory Rate 12 Setting Actual Respiratory Rate 15 Actual Respiratory Rate 20 Actual Respiratory Rate 17 Actual Respiratory Rate 15 Actual Respiratory Rate 12 Actual Respiratory Rate 12 Actual Respiratory Rate 19 Positive End Expiratory 5 Pressure Positive End Expiratory 5 Pressure Positive End Expiratory 5 Pressure Positive End Expiratory 5 Pressure Positive End Expiratory 5 Pressure Positive End Expiratory 5 Pressure Positive End Expiratory 5 Pressure Positive End Expiratory 5 Pressure Peak Inspiratory Airway 23 Pressure Peak Inspiratory Airway 24 Pressure Peak Inspiratory Airway 24 Pressure Peak Inspiratory Airway 22 Pressure Peak Inspiratory Airway 24 Pressure Peak Inspiratory Airway 35 Pressure Peak Inspiratory Airway 26 Pressure Results - Laboratory Findings CBC and BMP: 04/07/17 03:05 04/07/17 03:05 ABG ABG pH 7.45 pH Units (7.32-7.45) 04/07/17 03:54 ABG pCO2 60 mmHg (35-45) H 04/07/17 03:54 ABG pO2 113 mmHg (85-104) H 04/07/17 03:54 ABG O2 Saturation 99 % (95-98) H 04/07/17 03:54 PT/INR, D-dimer PT 13.1 Seconds (9.4-12.1) H 04/06/17 08:10 Abnormal lab findings: Abnormal lab results RBC 2.77 M/mcL (4.19-5.50) L 04/07/17 03:05 Hgb 7.9 g/dL (12.9-16.9) L 04/07/17 03:05 Hct 24.6 % (37.5-50.1) L 04/07/17 03:05 MPV 8.5 fL (9.4-12.4) L 04/07/17 03:05 PT 13.1 Seconds (9.4-12.1) H 04/06/17 08:10 APTT 23.7 Seconds (26.0-36.0) L 04/06/17 08:10 ABG pCO2 60 mmHg (35-45) H 04/07/17 03:54 ABG pO2 113 mmHg (85-104) H 04/07/17 03:54 ABG HCO3 41.7 mEQ/L (21-27) H 04/07/17 03:54 ABG Total CO2 43.5 mEq/L (20-26) H 04/07/17 03:54 ABG O2 Saturation 99 % (95-98) H 04/07/17 03:54 ABG Base Excess 15.7 mEq/L (-2.0 to 3.0) H 04/07/17 03:54 Chloride 92 mEq/L (98-109) L 04/07/17 03:05 Carbon Dioxide 33 mEq/L (19-29) H 04/07/17 03:05 BUN 28 mg/dL (8-26) H 04/07/17 03:05 BUN/Creatinine Ratio 33 (6-26) H 04/07/17 03:05 Glucose 116 mg/dL (70-99) H 04/07/17 03:05 POC Glucose 108 (58-89) H 04/06/17 23:56 Calcium 8.0 mg/dL (8.6-10.8) L 04/07/17 03:05 Ionized Calcium 1.02 mmol/L (1.15-1.35) L 04/07/17 03:05 Magnesium 1.5 mg/dL (1.6-2.6) L 04/07/17 03:05 Troponin I 0.08 ng/mL (0-0.03) H* 04/07/17 03:05 B-Natriuretic Peptide 263 pg/mL (0-100) H 04/06/17 05:46 Albumin 2.7 g/dL (3.5-5.0) L 04/06/17 05:46 Globulin 4.7 g/dL (2.4-3.5) H 04/06/17 05:46 Albumin/Globulin Ratio 0.6 (1.1-2.2) L 04/06/17 05:46 Urine Protein 30 mg/dL (Neg-Trace) H 04/06/17 09:45 Urine Blood Trace (Negative) H 04/06/17 09:45 Ur Leukocyte Esterase Large (Negative) H 04/06/17 09:45 Urine Microscopic RBC 5-15 per hpf (0-3) H 04/06/17 09:45 Urine Microscopic WBC TNTC per hpf (0-3) H 04/06/17 09:45 Urine Bacteria Many per hpf (None-Few) H 04/06/17 09:45 Ur Culture Indicated? YES (NO) A 04/06/17 09:45 - Microbiology Findings Microbiology Findings: Microbiology, Last 48 Hours 04/06/17 09:45 Urine Culture - Final Urine,Clean Catch No growth. 04/06/17 09:45 Legionella Antigen - Final Urine,Means Port Streptococcus pneumoniae Antigen (M - Final - Clinical Findings Intake & Output: Intake & Output 04/06/17 04/07/17 04/07/17 23:59 07:59 15:59 Intake Total 461 / 461 730 / 730 Output Total 250 / 250 325 / 325 75 / 75 Balance 211 / 211 405 / 405 -75 / -75 Weight 83.5 kg Consult Discharge Plan - Plan Referrals: Solis Crowder MD [Primary Care Provider] - - Attending Attestation I examined this patient and my medical decision-making was reviewed with the WOUND CARE TECHNICIAN/PA/Advanced Practice Nurse/Resident Physician. I agree with the documented findings, disposition and treatment plan as described except to the extent set forth below. Patient seen and examined at bedside Labs, radiology, chart personally reviewed. All lines examined without evidence of infection. Neuropsych: somnolent bu will arouse and follow simple commands when loudly prompted. will hold sedation for vent today. Pulm: Acute on chronic hypoxic hypercapnic respiratory failure multifactorial including musculoskeletal deformity chronic heart failure underlying COPD presumed pneumonia and muscle weakness. itubated on vent. Overventilated yesterday with mild post hypercapnic alkalosis given diamox x 2 doses. Switch over to PSV when more awake. 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 would likely benefit from medical pleuroscopy on non urgent basis. will also cont to treat for COPD with scheduled steroids and BDs. Acceptable oxygenation and ventilation today. Cards: History of CAD s/p CABG mild trop elevation suspect type 2 MD ECHO shows primarily chronic changes troponin has peaked. MAP stable (>60) FEN-GI:NPO for now. GI prophylaxis given Renal: no JOHANNY monitor urine output with Means catheter. Gentle diuresis today and repeat electrolyte panel ID: leuckocytosis with concern for sepsis. likely PNA on appropriate abx with improvement in wbc count. will stop levaquin. Further deescalation based upon micro s/s Heme/Onc: DVT prophylaxis with Heparin Endo: Glucose monitored. Integ/MSK: skin care per ICU protocol CODE: Full code. <Marlin Medina - Last Filed: 04/07/17 15:10> Date of Encounter: 04/07/17 Time of Encounter: 08:22 Assessment and Plan (1) Acute on chronic respiratory failure with hypoxia and hypercapnia Current Visit: Yes Status: Acute Acute on chronic respiratory failure with hypoxia and hypercapnia requiring intubation (04/06/2017) Most likely secondary to COPD, CHF, pneumonia, as well as musculoskeletal abnormalities Patient with a respiratory alkalosis that night that improved with diamox x2 Vent settings this morning - VC+, [id number], R12, FiO2 50%, PEEP 5.0 Last ABG 7.45/60/113/41.7/15.7 (compared to initial ABG 7.22/111/96/45.4/14.5) Plan to wean sedation for CPAP trial Continue scheduled duonebs, IV solumedrol and ABX (2) Acute exacerbation of chronic obstructive airways disease Current Visit: Yes Status: Acute Patient with history of COPD. Presented with dyspnea, increased cough and sputum production Acute COPD exacerbation likely secondary to pneumonia Scheduled bronchodilators - Xopenex and Atrovent IV solumedrol 40mg BID Patient may require home oxygen upon discharge from hospital. (3) HCAP (healthcare-associated pneumonia) Current Visit: Yes Status: Acute Patient presented with dyspnea, cough, and sputum production Recent hospitalizations at [facility] CXR and CT chest 04/06 suggest pneumonia vs atelectasis Sputum culture preliminary - gram positive cocci Blood cultures and urine culture negative Initially started on emperic antibiotics with levaquin, zosyn and vancomycin Stop levaquin today, continue zosyn and vancomycin (4) Sepsis Current Visit: Yes Status: Acute Improving Meet SIRS criteria on admission with leukocytosis of 16.7 and tachycardia Source is likely pulmonary - blood culture and urine cultures negative Prelim sputum cultures grew gram negative cocci. CT chest 04.06 showed BL lower lobe opacities possible pneumonia Patient is afebile, vital signs stable. WBC is improving 7.5 (16.7) Started on emperic antibiotics with levaquin, zosyn and vancomycin Monitor vital signs and follow sputum cultures Continue zosyn and vancomycin Qualifiers: Sepsis type: sepsis due to unspecified organism Qualified Code(s): A41.9 - Sepsis, unspecified organism (5) Altered mental status Current Visit: Yes Status: Acute Altered mental status on admission likely secondary to elevated CO2 and sepsis. CT head 04/06 showed no intracranial abnormalities CO2 is improving - last ABG 7.45/60/113/41.7/15.7 Sepsis improving - vital signs and labs normalizing Qualifiers: Altered mental status type: unspecified Qualified Code(s): R41.82 - Altered mental status, unspecified (6) Anemia Current Visit: Yes Status: Chronic History of liver hematoma and hemorrhage Hgb 7.9 today from 9.1 yesteray No signs of active bleeding Monitor and repeat H/H this afternoon Will send iron studies, LDH, folate and B12 Qualifiers: Anemia type: unspecified type Qualified Code(s): D64.9 - Anemia, unspecified (7) Atrial fibrillation Current Visit: Yes Status: Chronic History of atrial fibrillation with ablation per medical records Currently heart rate is irregularly irregular - atrial fibrillation rate controlled Restared home medication - cardizem 60mg Q8 IV lopressor PRN if needed Qualifiers: Atrial fibrillation type: unspecified Qualified Code(s): I48.91 - Unspecified atrial fibrillation (8) Diastolic congestive heart failure Current Visit: Yes Status: Chronic Patient with history of CHF, recently admitted to [place] for acute CHF exacerbation ECHO done yesterday shoed LVEF 60%, atypical septal motion, indeterminate diastolic function, Mild TR, no pulmonary hypertension Digoxin level appropriate Will continue home medication, monitor daily weights and I/O Qualifiers: Congestive heart failure chronicity: unspecified congestive heart failure chronicity Qualified Code(s): I50.30 - Unspecified diastolic (congestive) heart failure (9) Elevated troponin Current Visit: Yes Status: Acute Elevated troponin on admission 0.05 Likely secondary to demand ischemia Peaked at 0.14 >> down to 0.08 EKG showed atrial fibrillation with normal ventricular response (10) AV fistula Current Visit: Yes Status: Acute Patient and family aware of AV fistula in right arm Cenies any history of kidney failure or dialysis Suspect this was from heart catheterization and CABG in 1983 Palpable thrill and audible bruit (11) Cervical kyphosis Current Visit: Yes Status: Chronic Severe cervical kyphosis. Reportedly secondary fracture and osteoporosis Limited neck movement Qualifiers: Kyphosis type: unspecified Qualified Code(s): M40.202 - Unspecified kyphosis, cervical region (12) Coronary artery disease Current Visit: No Status: Chronic Significant history of CAD s/p CABG (1983 and repeat 2001) and multiple stents Continue home medications Qualifiers: Coronary Disease-Associated Artery/Lesion type: bypass graft [place] vs. transplanted heart: [place] heart Associated angina: without angina Qualified Code(s): I25.810 - Atherosclerosis of coronary artery bypass graft(s) without angina pectoris (13) Difficult airway for intubation Current Visit: Yes Status: Acute Severe cervical kyphosis Fiberoptic scope used for intubation with anesthesia at bedside Qualifiers: Encounter type: initial encounter Qualified Code(s): T88.4XXA - Failed or difficult intubation, initial encounter (14) Pleural plaque Current Visit: Yes Status: Chronic CT chest 04/06 showed pleural plaques concerning for asbestos exposure Seen on old CT in 2013 (15) DVT prophylaxis Current Visit: Yes Status: Acute Heparin for DVT prophylaxis Neuro: Intubated and sedated with versed overnight. Sedation turned off for CPAP trial Pulm: Acute on chronic hypoxic hypercapnic respiratory failure secondary to COPD , possible pneumonia, MSK and muscle weakness. Intubated yesterday - Wean sedation for CPAP trial today - Continue Atrovent and xopenex for bronchodilators - Solu-medrol 40mg Q12hr - ABX for possible pneumonia - Sputum culture prelim showed gram + cocci Cardiac: Diastolic CHF s/p lasix, CAD, atrial fibrillation - Troponin improving - likely secondary to demand ischemia - Hgb 7.9 (9.1) - Repeat H/H this afternoon - Continue home medications GI/Fluids/Electrolytes/Hydration - GI ppx - No maintance fluids - Replaced Mg and potassium - Decreased UOP this morning - 20mg IV lasix Renal: - Means catheter - Decreased UOP this morning - 20mg IV lasix ID: Initial concern for sepsis due to CLABSI vs pneumonia vs UIT - peripheral blood negative, PICC blood pending, urine negative, sputum prelim grew gram + cocci - Stop levaquin. Stop zosyn, and vancomycin Heme/Onc: - Hgb 7.9 (9.1) Repeat H/H - Heparin for DVT ppx Endocrine: blood sugars within normal limits MSK: kyphosis Lines: left arm PICC, 2nd left arm EVIP, ET, OG, Means Dispo: ICU Subjective Principal diagnosis: Aucte on chronic hypoxic hypercapnic respiratory failure Interval history: Patient intubated yesterday for respiratory failure. He was given 2 doses of lasix and 2 doses of diamox last night. No other acute events overnight. He remains intubated and sedated on versed. Vent settings on VC+ TV400, R12, FiO2 50%, and PEEP of 5.0. Patient was afebrile overnight. HR irregular but appropriate. Blood pressure lower (80s/40s) however improved with decreased sedation. On exam, patient does not open eyes to voice or follow commands. He has severe cervical kyphosis. Lungs significantly diminished bilaterally, no wheezing or rhonchi. Abdomen soft, non-tender. No pedal edema on exam. Objective PUL Vital signs: Last Vital Signs Temp 97.0 F L 04/07/17 08:12 Pulse 78 04/07/17 08:00 Resp 15 04/07/17 08:00 BP 102/61 04/07/17 08:00 Pulse Ox 100 04/07/17 08:00 General appearance: other (Intuated and sedated) Eyes: nonicteric ENT: other (ET tube in place) Neck: other (Severe cervical kyphosis) Effort: normal Auscultation: bilateral: diminished breath sounds Cardiovascular: irregular rhythm Gastrointestinal: normoactive bowel sounds, soft, non-tender, non-distended Integumentary: normal Extremities: no cyanosis, no edema unable to assess due to mental status Ventilator Settings Ventilator Settings: Ventilator Settings, Last 8 Hours Ventilator Mode VC+ Ventilator Mode VC+ Ventilator Mode VC+ Ventilator Mode VC+ Ventilator Mode VC+ Ventilator Mode VC+ Ventilator Mode VC+ Ventilator Mode VC+ Ventilator Tidal Volume 400 Setting Ventilator Tidal Volume 400 Setting Ventilator Tidal Volume 400 Setting Ventilator Tidal Volume 400 Setting Ventilator Tidal Volume 400 Setting Ventilator Tidal Volume 400 Setting Ventilator Tidal Volume 400 Setting Ventilator Tidal Volume 400 Setting Ventilator Respiratory Rate 12 Setting Ventilator Respiratory Rate 12 Setting Ventilator Respiratory Rate 12 Setting Ventilator Respiratory Rate 12 Setting Ventilator Respiratory Rate 12 Setting Ventilator Respiratory Rate 12 Setting Ventilator Respiratory Rate 12 Setting Ventilator Respiratory Rate 12 Setting Actual Respiratory Rate 15 Actual Respiratory Rate 20 Actual Respiratory Rate 17 Actual Respiratory Rate 15 Actual Respiratory Rate 12 Actual Respiratory Rate 12 Actual Respiratory Rate 19 Positive End Expiratory 5 Pressure Positive End Expiratory 5 Pressure Positive End Expiratory 5 Pressure Positive End Expiratory 5 Pressure Positive End Expiratory 5 Pressure Positive End Expiratory 5 Pressure Positive End Expiratory 5 Pressure Positive End Expiratory 5 Pressure Peak Inspiratory Airway 23 Pressure Peak Inspiratory Airway 24 Pressure Peak Inspiratory Airway 24 Pressure Peak Inspiratory Airway 22 Pressure Peak Inspiratory Airway 24 Pressure Peak Inspiratory Airway 35 Pressure Peak Inspiratory Airway 26 Pressure Results - Laboratory Findings CBC and BMP: 04/07/17 14:48 04/07/17 03:05 ABG ABG pH 7.45 pH Units (7.32-7.45) 04/07/17 03:54 ABG pCO2 60 mmHg (35-45) H 04/07/17 03:54 ABG pO2 113 mmHg (85-104) H 04/07/17 03:54 ABG O2 Saturation 99 % (95-98) H 04/07/17 03:54 PT/INR, D-dimer PT 13.1 Seconds (9.4-12.1) H 04/06/17 08:10 Abnormal lab findings: Abnormal lab results RBC 2.77 M/mcL (4.19-5.50) L 04/07/17 03:05 Hgb 7.9 g/dL (12.9-16.9) L 04/07/17 03:05 Hct 24.6 % (37.5-50.1) L 04/07/17 03:05 MPV 8.5 fL (9.4-12.4) L 04/07/17 03:05 PT 13.1 Seconds (9.4-12.1) H 04/06/17 08:10 APTT 23.7 Seconds (26.0-36.0) L 04/06/17 08:10 ABG pCO2 60 mmHg (35-45) H 04/07/17 03:54 ABG pO2 113 mmHg (85-104) H 04/07/17 03:54 ABG HCO3 41.7 mEQ/L (21-27) H 04/07/17 03:54 ABG Total CO2 43.5 mEq/L (20-26) H 04/07/17 03:54 ABG O2 Saturation 99 % (95-98) H 04/07/17 03:54 ABG Base Excess 15.7 mEq/L (-2.0 to 3.0) H 04/07/17 03:54 Chloride 92 mEq/L (98-109) L 04/07/17 03:05 Carbon Dioxide 33 mEq/L (19-29) H 04/07/17 03:05 BUN 28 mg/dL (8-26) H 04/07/17 03:05 BUN/Creatinine Ratio 33 (6-26) H 04/07/17 03:05 Glucose 116 mg/dL (70-99) H 04/07/17 03:05 POC Glucose 108 (58-89) H 04/06/17 23:56 Calcium 8.0 mg/dL (8.6-10.8) L 04/07/17 03:05 Ionized Calcium 1.02 mmol/L (1.15-1.35) L 04/07/17 03:05 Magnesium 1.5 mg/dL (1.6-2.6) L 04/07/17 03:05 Troponin I 0.08 ng/mL (0-0.03) H* 04/07/17 03:05 B-Natriuretic Peptide 263 pg/mL (0-100) H 04/06/17 05:46 Albumin 2.7 g/dL (3.5-5.0) L 04/06/17 05:46 Globulin 4.7 g/dL (2.4-3.5) H 04/06/17 05:46 Albumin/Globulin Ratio 0.6 (1.1-2.2) L 04/06/17 05:46 Urine Protein 30 mg/dL (Neg-Trace) H 04/06/17 09:45 Urine Blood Trace (Negative) H 04/06/17 09:45 Ur Leukocyte Esterase Large (Negative) H 04/06/17 09:45 Urine Microscopic RBC 5-15 per hpf (0-3) H 04/06/17 09:45 Urine Microscopic WBC TNTC per hpf (0-3) H 04/06/17 09:45 Urine Bacteria Many per hpf (None-Few) H 04/06/17 09:45 Ur Culture Indicated? YES (NO) A 04/06/17 09:45 - Microbiology Findings Microbiology Findings: Microbiology, Last 48 Hours 04/06/17 09:45 Urine Culture - Final Urine,Clean Catch No growth. 04/06/17 09:45 Legionella Antigen - Final Urine,Means Port Streptococcus pneumoniae Antigen (M - Final - Diagnostic Findings Chest x-ray: report reviewed, image reviewed - Clinical Findings Intake & Output: Intake & Output 04/06/17 04/07/17 04/07/17 23:59 07:59 15:59 Intake Total 461 / 461 730 / 730 Output Total 250 / 250 325 / 325 75 / 75 Balance 211 / 211 405 / 405 -75 / -75 Weight 83.5 kg
[2017-04-07] MEDS ORDERED: Magnesium Sulfate 2 GM in D5% in Water 100 ML IVPB ONE (08:30)
[2017-04-07] MEDS ORDERED: Levofloxacin 750 MG/150 ML 750 MG/150 ML BAG IVPB SCH (09:00)
[2017-04-07] MEDS ORDERED: Diltiazem CD (24hr) 240 MG CAPSULE PO SCH (09:00)
--- NOTE | 2017-04-07 09:24 | ECHO - Doppler Report ---
Echocardiogram Name: Evangelista Clark Date of Study: 04/06/2017 Date: 1935 Ht: 60.0 in Medical Record#: [id number] Age: 82 Wt: 183.0 lb Gender: Male BSA: 1.8 Order #: [id number] Location: [facility] Room #: IC07 Reading Physician: Katrina Morin DO Trailer Tank Truck Driver: Sia Gould RDCS Ordering Physician: Jesse Gonzalez DO Primary Physician: Solis Crowder MD Indications: Respiratory Failure, Pulmonary edema Impressions: LVEF 60%. Atypical septal motion consistent with post-operative status. Indeterminate diastolic function. RV is not well visualized in all views. Mild tricuspid regurgitation. No pulmonary hypertension by TR gradient, 20 mmHg. IVC is not well visualized. Left Ventricular Wall Motion: Rest Echo Findings All wall segments showed normal motion. Findings: Study Quality * Technically challenging due to clinical status. ECG Findings * Normal sinus rhythm at beginning of exam (E/A on M-mode seen). Possibly AFIB during examination (A wave on mitral inflow poorly visualized). Left Ventricle * Atypical septal motion consistent with post-operative status. * Indeterminate diastolic function. * LVEF 60%. Aortic Valve * No aortic regurgitation. * Aortic valve not well visualized. * No aortic stenosis. Mitral Valve * No mitral regurgitation. * No mitral stenosis. * Normal mitral valve structure. Tricuspid Valve * Tricuspid valve not well visualized. * Mild tricuspid regurgitation. Pulmonic Valve * Pulmonic valve is not well visualized. * No pulmonic stenosis. * No pulmonic regurgitation. Pulmonary Artery * Pulmonary artery not well visualized. Left Atrium * Normal left atrial size. Right Atrium * Normal right atrial size. Interatrial Septum * Interatrial septum not well evaluated. Pericardium * There is no pericardial effusion present. Aorta * Not well visualized. IVC * The IVC is not well evaluated. Right Ventricle * RV is not well visualized in all views (not visualized in the subcostal view, poorly visualized in PLAX and apical views). History Hypertension Hypercholesteremia History of CAD/PTCA Myocardial Infarction Coronary Artery Bypass Graft 02/23/2017 a Previous Echo was performed. Measurements: BP: 110/ 68 2D Normal Values RVIDd: 2.50 cm <2.7 cm IVSd: 1.00 cm 0.6 - 1.0 cm LVIDd: 4.47 cm 3.7 - 5.6 cm LVPWd: 1.03 cm 0.6 - 1.1 cm LVIDs: 2.86 cm 1.5 - 3.6 cm AO: 2.90 cm < 4.0 cm LA: 3.50 cm 2.0 - 4.0cm %FS: 36.00 cm >25 % LA volume: 31 Mitral Valve Peak E:1.11 m/sec Peak A:.50 m/sec E/A Ratio:2.2 Peak E' Lat Mitchell:13.1 cm/s Peak E' Med Mitchell:10.7 cm/s E/E' Lat Ratio:8.5 E/E' Med Ratio:10.4 Tricuspid Valve TV Regurg Peak Grad: 20.00mmHg TV Regurg Peak Mitchell: 2.26m/sec Updated by Katrina Morin on 04/07/2017 9:18:00 AM electronically signed on 04/07/2017 9:19:49 AM with status of Final Wall Motion Reyes: 1=Normal, 2=Hypokinesis, 3=Akinesis, 4=Dyskinesis, 5=Aneurysmal, 6=Hyperkinetic, X=Not Visualized (Blank)=Missing
[2017-04-07] MEDS ORDERED: Furosemide 20 MG/2 ML VIAL IVP ONE (10:36)
--- NOTE | 2017-04-07 13:13 | Electrocardiograph Report ---
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
[2017-04-07 15:01] LABS: Basophils % 0.1 %; Hematocrit 25.4 % (37.5-50.1); Immature Granulocytes % 0.7 % (0-4); Lymphocytes # 0.7 K/mcL (0.6-4.6); Lymphocytes % 6.4 %; Mean Corpuscular HGB Conc 31.5 g/dL (31.6-35.5); Mean Corpuscular Hemoglobin 28.1 pg (28.0-33.3); Mean Corpuscular Volume 89.1 fL (83.0-100.0); Mean Platelet Volume 8.7 fL (9.4-12.4); Monocytes # 0.5 K/mcL (0.0-1.3); Monocytes % 4.1 %; Platelet Count 289 K/mcL (140-400); Red Blood Count 2.85 M/mcL (4.19-5.50); Red Cell Distribution Width 13.8 % (11.5-14.5); Segmented Neutrophils % 88.7 %
[2017-04-07 15:14] LABS: BUN/Creatinine Ratio 34 (6-26); Blood Urea Nitrogen 32 mg/dL (8-26); Carbon Dioxide 34 mEq/L (19-29); Chloride 91 mEq/L (98-109); Glucose 127 mg/dL (70-99); Osmolality,Calculated 288 (280-300); Potassium 3.8 mEq/L (3.5-4.5); Sodium 135 mEq/L (136-145); eGFR For African Americans > 60 (> 60); eGFR For Non-African Americans > 60 (> 60)
[2017-04-08] MEDS: Piperacillin/Tazobactam 3.375 GM in D5% in Water (Mini-Bag+) 100 ML IVPB SCH ×3 (02:27→17:42)
[2017-04-08] MEDS: Ipratropium Neb 0.5 MG NEBULIZER IH SCH ×4 (03:56→21:05)
[2017-04-08] MEDS: Levalbuterol Neb 1.25 MG/3 ML IH SCH ×4 (03:56→21:05)
[2017-04-08 04:03] LABS: ABG Base Excess 13.7 mEq/L (-2.0 to 3.0); ABG HCO3 39.8 mEQ/L (21-27); ABG Oxygen Saturation 98 % (95-98); ABG PCO2 60 mmHg (35-45); ABG PH 7.43 pH Units (7.32-7.45); ABG PO2 101 mmHg (85-104); ABG TCO2 41.6 mEq/L (20-26)
[2017-04-08 04:04] LABS: Blood Gas FiO2 40 %
[2017-04-08 04:41] LABS: Hematocrit 24.5 % (37.5-50.1); Hemoglobin 7.8 g/dL (12.9-16.9); Immature Granulocytes % 0.6 % (0-4); Lymphocytes # 0.5 K/mcL (0.6-4.6); Lymphocytes % 4.2 %; Mean Corpuscular HGB Conc 31.8 g/dL (31.6-35.5); Mean Corpuscular Hemoglobin 28.1 pg (28.0-33.3); Mean Corpuscular Volume 88.1 fL (83.0-100.0); Mean Platelet Volume 8.9 fL (9.4-12.4); Monocytes # 0.6 K/mcL (0.0-1.3); Monocytes % 4.9 %; Neutrophils # 10.5 K/mcL (1.6-8.9); Platelet Count 309 K/mcL (140-400); Red Blood Count 2.78 M/mcL (4.19-5.50); Red Cell Distribution Width 13.9 % (11.5-14.5); Segmented Neutrophils % 90.3 %
[2017-04-08 04:51] LABS: BUN/Creatinine Ratio 33 (6-26); Blood Urea Nitrogen 36 mg/dL (8-26); Calcium 8.1 mg/dL (8.6-10.8); Carbon Dioxide 35 mEq/L (19-29); Chloride 90 mEq/L (98-109); Glucose 134 mg/dL (70-99); Magnesium 2.1 mg/dL (1.6-2.6); Osmolality,Calculated 288 (280-300); Phosphorous 3.7 mg/dL (2.3-4.7); Potassium 3.5 mEq/L (3.5-4.5); Sodium 134 mEq/L (136-145); eGFR For African Americans > 60 (> 60); eGFR For Non-African Americans > 60 (> 60)
[2017-04-08] MEDS: MethylPREDNISolone 40 MG/ML VIAL IVP SCH (05:29)
[2017-04-08] MEDS: *HR* Heparin 5,000 UNIT/ML VIAL SQ SCH ×3 (05:29→22:11)
[2017-04-08] MEDS: Norepinephrine 4 MG in D5% in Water 250 ML IVC SCH (05:30)
[2017-04-08] MEDS ORDERED: Vancomycin 1,250 MG in D5% in Water 250 ML IVPB SCH (06:00)
--- NOTE | 2017-04-08 06:57 | Pulmonology Progress Note ---
<JenVic cotto W - Last Filed: 04/08/17 11:10> Date of Encounter: 04/08/17 Objective PUL Vital signs: Last Vital Signs Temp 98.2 F 04/08/17 07:25 Pulse 112 04/08/17 09:00 Resp 15 04/08/17 09:00 BP 106/60 04/08/17 09:00 Pulse Ox 98 04/08/17 09:00 Ventilator Settings Ventilator Settings: Ventilator Settings, Last 8 Hours Ventilator Mode CPAP Ventilator Mode CPAP Ventilator Mode VC+ Ventilator Mode VC+ Ventilator Mode VC+ Ventilator Mode VC+ Ventilator Tidal Volume 400 Setting Ventilator Tidal Volume 400 Setting Ventilator Tidal Volume 400 Setting Ventilator Tidal Volume 400 Setting Ventilator Respiratory Rate 12 Setting Ventilator Respiratory Rate 12 Setting Ventilator Respiratory Rate 12 Setting Ventilator Respiratory Rate 12 Setting Actual Respiratory Rate 28 Actual Respiratory Rate 24 Actual Respiratory Rate 12 Actual Respiratory Rate 23 Actual Respiratory Rate 15 Positive End Expiratory 5 Pressure Positive End Expiratory 5 Pressure Positive End Expiratory 5 Pressure Positive End Expiratory 5 Pressure Positive End Expiratory 5 Pressure Peak Inspiratory Airway 16 Pressure Peak Inspiratory Airway 15 Pressure Peak Inspiratory Airway 22 Pressure Peak Inspiratory Airway 23 Pressure Peak Inspiratory Airway 25 Pressure Results - Laboratory Findings CBC and BMP: 04/08/17 04:10 04/08/17 04:10 ABG ABG pH 7.43 pH Units (7.32-7.45) 04/08/17 03:51 ABG pCO2 60 mmHg (35-45) H 04/08/17 03:51 ABG pO2 101 mmHg (85-104) 04/08/17 03:51 ABG O2 Saturation 98 % (95-98) 04/08/17 03:51 PT/INR, D-dimer PT 13.1 Seconds (9.4-12.1) H 04/06/17 08:10 Abnormal lab findings: Abnormal lab results WBC 11.6 K/mcL (4.3-11.1) H 04/08/17 04:10 RBC 2.78 M/mcL (4.19-5.50) L 04/08/17 04:10 Hgb 7.8 g/dL (12.9-16.9) L 04/08/17 04:10 Hct 24.5 % (37.5-50.1) L 04/08/17 04:10 MPV 8.9 fL (9.4-12.4) L 04/08/17 04:10 Neutrophils # 10.5 K/mcL (1.6-8.9) H 04/08/17 04:10 Lymphocytes # 0.5 K/mcL (0.6-4.6) L 04/08/17 04:10 Retic Hgb Equivalent 27.7 pg (28.61-36.33) L 04/08/17 04:10 PT 13.1 Seconds (9.4-12.1) H 04/06/17 08:10 APTT 23.7 Seconds (26.0-36.0) L 04/06/17 08:10 ABG pCO2 60 mmHg (35-45) H 04/08/17 03:51 ABG HCO3 39.8 mEQ/L (21-27) H 04/08/17 03:51 ABG Total CO2 41.6 mEq/L (20-26) H 04/08/17 03:51 ABG Base Excess 13.7 mEq/L (-2.0 to 3.0) H 04/08/17 03:51 Sodium 134 mEq/L (136-145) L 04/08/17 04:10 Chloride 90 mEq/L (98-109) L 04/08/17 04:10 Carbon Dioxide 35 mEq/L (19-29) H 04/08/17 04:10 BUN 36 mg/dL (8-26) H 04/08/17 04:10 BUN/Creatinine Ratio 33 (6-26) H 04/08/17 04:10 Glucose 134 mg/dL (70-99) H 04/08/17 04:10 POC Glucose 146 (58-89) H 04/08/17 00:19 Calcium 8.1 mg/dL (8.6-10.8) L 04/08/17 04:10 Ionized Calcium 1.00 mmol/L (1.15-1.35) L 04/08/17 04:10 Troponin I 0.08 ng/mL (0-0.03) H* 04/07/17 03:05 B-Natriuretic Peptide 263 pg/mL (0-100) H 04/06/17 05:46 Albumin 2.7 g/dL (3.5-5.0) L 04/06/17 05:46 Globulin 4.7 g/dL (2.4-3.5) H 04/06/17 05:46 Albumin/Globulin Ratio 0.6 (1.1-2.2) L 04/06/17 05:46 Urine Protein 30 mg/dL (Neg-Trace) H 04/06/17 09:45 Urine Blood Trace (Negative) H 04/06/17 09:45 Ur Leukocyte Esterase Large (Negative) H 04/06/17 09:45 Urine Microscopic RBC 5-15 per hpf (0-3) H 04/06/17 09:45 Urine Microscopic WBC TNTC per hpf (0-3) H 04/06/17 09:45 Urine Bacteria Many per hpf (None-Few) H 04/06/17 09:45 Ur Culture Indicated? YES (NO) A 04/06/17 09:45 Vancomycin Trough 24.3 mcg/mL (10-20) H* 04/07/17 17:44 - Microbiology Findings Microbiology Findings: Microbiology, Last 48 Hours 04/06/17 10:30 Blood Culture - Preliminary Central Venous Catheter No growth. 04/07/17 07:45 Sputum Culture - Preliminary Sputum 04/06/17 09:45 Urine Culture - Final Urine,Clean Catch No growth. 04/06/17 09:45 Legionella Antigen - Final Urine,[place] Streptococcus pneumoniae Antigen (M - Final - Clinical Findings Intake & Output: Intake & Output 04/07/17 04/08/17 04/08/17 23:59 07:59 15:59 Intake Total 100 / 100 396 / 396 Output Total 150 / 150 575 / 575 Balance -50 / -50 -179 / -179 Weight 85.5 kg Consult Discharge Plan - Plan Referrals: Solis Crowder MD [Primary Care Provider] - - Attending Attestation I examined this patient and my medical decision-making was reviewed with the AVIATION SAFETY OFFICER/PA/Advanced Practice Nurse/Resident Physician. I agree with the documented findings, disposition and treatment plan as described except to the extent set forth below. Patient seen and examined at bedside Labs, radiology, chart personally reviewed. All lines examined without evidence of infection. Neuropsych: somnolent but easily arrousable and in general more awake today than at any point since admission. Continue to hold sedation unless intermittent boluses of narcotic needed for agitation/pain control Pulm: Acute on chronic hypoxic hypercapnic respiratory failure multifactorial including musculoskeletal deformity chronic heart failure underlying COPD presumed pneumonia and muscle weakness. Remains intubated on vent although tolerating pressure support ventilation quite well lately (08/27) however when pressure-support is removed patient is unable to take appropriate tidal volumes. I suspect that once liberated from vent patient will need some form of noninvasive positive pressure ventilation for support at the very least at night. His chronic deconditioning and weakness is severe again coupled with skeletal deformities which will no doubt progress in the current state to worsening chronic hypercarbic respiratory failure. Will also d/w patient family possibility of medical pleuroscopy on non urgent basis for chronic pleural changes and suspected asbestos exposure. Switch to enteral steroids to complete 5 day course. Cont bronchodilators Cards: History of CAD s/p CABG mild trop elevation with type 2 FL ECHO shows primarily chronic changes troponin has peaked. MAP stable (>60). Cont Digoxin and CCB for chronic afib which is rate controlled today FEN-GI:NPO for now. GI prophylaxis given Renal: no JOHANNY cont monitor urine output with Miranda catheter. Gentle diuresis today to keep net negative ID: leuckocytosis with concern for sepsis. likely PNA on appropriate abx sputum culture pending but prelim no growth. High vanc trough so will hold stop unless final micro results + for MRSA Heme/Onc: cont DVT prophylaxis with Heparin Endo: Glucose monitored. Integ/MSK: skin care per ICU protocol CODE: Full code. <Lonnie Restrepo - Last Filed: 04/08/17 11:37> Date of Encounter: 04/08/17 Time of Encounter: 06:57 Assessment and Plan (1) Acute on chronic respiratory failure with hypoxia and hypercapnia Current Visit: Yes Status: Acute multifactorial secondary to musculoskeletal abnormalities, chronic heart failure , COPD, and pneumonia difficult intubation 04/06/2017 - patient became tachypneic and unresponsive to verbal stimuli after failed NIPVV intervention and required intubation for protection of airway and respiratory failure from fatigue on 04/06/2017 - anesthesia was at bedside for assistance due to severe cervical kyphosis - intubated with fiberoptic CXR 04/08 shows stable chest with bilateral infiltrates, ETT and PICC are present but unclear of position last ABG 7.43/60/101/39.8/98/+13.7 currently tolerating CPAP trial - appears in no acute distress, resp as high as 37, pulls good tidal volumes - due to difficult airway will slowly wean, likely to BiPAP possibly today continue scheduled duonebs and steroids - start on Prednsione 40mg daily for 5 days (2) Acute exacerbation of chronic obstructive airways disease Current Visit: Yes Status: Acute history of COPD diminished breath sounds, no wheezes today continue scheduled bronchodilators and steroids - adverse reaction to Albuterol, scheduled Xopenex will continue with 5 days of Prednisone 40 mg (3) Sepsis Current Visit: Yes Status: Acute improving meets SIRS criteria for tachycardia and tachypnea remains afebrile and has a mild leukocytosis 11.6 (11.3) lactate was normal on 04/06 0.6 source is likely pulmonary - CT chest 04/06, shows bilateral lower lobe opacities, calcified pleural plaques , and pulm hypertension - sputum culture (04/07) has NGTD but GPC seen - blood cultures x3 (04/06) NGTD - urine culture (04/06) NGTD patient remains on empiric antibiotics Vanc and Zosyn (day 3) - Levaquin was discontinued 04/07 - pharmacy to dose Vanc - Vanc trough elevated 24.3 - will de-escalate to Zosyn will continue to monitor vital signs and renal function Qualifiers: Sepsis type: sepsis due to unspecified organism Qualified Code(s): A41.9 - Sepsis, unspecified organism (4) HCAP (healthcare-associated pneumonia) Current Visit: Yes Status: Acute recent hospitalizations at [facility] CXR and CT chest 04/06 suggestive of pneumonia empirical treatment with Vanc and Zosyn (day 3) - elevated Vanc trough 24.3 - pharmacy to dose - will de-escalate antibiotics to only Zosyn urine antigens negative (5) Altered mental status Current Visit: Yes Status: Acute improving likely secondary to CO2 narcosis and sepsis off sedation, he remains intubated but opens eyes and follows simple commands re-evaluate after extubation encourage good sleep-wake and orienting Qualifiers: Altered mental status type: unspecified Qualified Code(s): R41.82 - Altered mental status, unspecified (6) Diastolic congestive heart failure Current Visit: Yes Status: Chronic reported previous admission to [facility] for acute exacerbation of CHF within last 3 weeks - will attempt to obtain records ECHO (04/06) EF 60%, atypical eptal motion, indeterminate diastolic function, mild TR, no pulm hypertension, rhythm initially NSR and then A-fib - last ECHO 02/23 was sub-optimal but showed EF 55%, normal LV systolic function, atypical septal motion, normal diastolic function and mild TR and moderated pulm HTN RVSP = 58 mmHg continue home meds Dig level 0.8 monitor I/O Qualifiers: Congestive heart failure chronicity: unspecified congestive heart failure chronicity Qualified Code(s): I50.30 - Unspecified diastolic (congestive) heart failure (7) Elevated troponin Current Visit: Yes Status: Acute troponin initially 0.05 likely due to demand ischemia - peak 0.14 and downtrended 0.08 - EKG atrial fibrillation with normal ventricular response, no ischemic changes (8) Coronary artery disease Current Visit: No Status: Chronic significant history of CAD s/p CABG (1983 and repeat 2001) and multiple stents continue home medications Qualifiers: Coronary Disease-Associated Artery/Lesion type: bypass graft [place] vs. transplanted heart: [place] heart Associated angina: without angina Qualified Code(s): I25.810 - Atherosclerosis of coronary artery bypass graft(s) without angina pectoris (9) Cervical kyphosis Current Visit: Yes Status: Chronic reportedly secondary fracture and osteoporosis limited neck movement Qualifiers: Kyphosis type: unspecified Qualified Code(s): M40.202 - Unspecified kyphosis, cervical region (10) Anemia Current Visit: Yes Status: Chronic history of liver hematoma and hemorrhage hemoglobin remains stable at 7.8 (8.0) pending iron studies, ferritin, retic, V12, and folate - likely secondary to iron-deficiency - iron saturation 10% no signs of active bleeding may consider transfusion due to significant CAD, awaiting anemia workup continue to monitor H/H Qualifiers: Anemia type: unspecified type Qualified Code(s): D64.9 - Anemia, unspecified (11) Atrial fibrillation Current Visit: Yes Status: Chronic history of atrial fibrillation with ablation per medical records currently NSR rate <110 continue home medications - due to intubation Cardizem 240 ER was changed to Cardizem 60mg Q8H IV Lopressor PRN Qualifiers: Atrial fibrillation type: unspecified Qualified Code(s): I48.91 - Unspecified atrial fibrillation (12) Pleural plaque Current Visit: Yes Status: Chronic possible asbestos exposure findings suggestive on CT Chest 04/06 review of old records shows evidence in 2014 will obtain old images for comparison follow up as outpatient recommended - would likely benefit from medical pleuroscopy on non-urgent basis (13) AV fistula Current Visit: Yes Status: Acute patient and family aware of AV fistula in right arm denies any history of kidney failure or dialysis suspect this was from heart catheterization and CABG in 1983 palpable thrill and audible bruit (14) Difficult airway for intubation Current Visit: Yes Status: Acute severe cervical kyphosis anesthesia called to bedside for assistance intubated successfully with fiberoptic CXR confirms proper placement of ETT Qualifiers: Encounter type: initial encounter Qualified Code(s): T88.4XXA - Failed or difficult intubation, initial encounter (15) Difficult intravenous access Current Visit: Yes Status: Acute patient presents with left PICC in upper arm - reports recent IV antibiotics at [facility] for suspected UTI CT Chest appears to show tip of PICC in the right atrium, suggested to pull back 4 cm to proximal SVC an additional EPIV placed in left upper arm (16) DVT prophylaxis Current Visit: Yes Status: 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 Tolerating CPAP trial, plan to BiPAP later if appropriate. Continue bronchodilatros and steroids 40mg Prednisone. Vanc and Zosyn for HCAP (day 3), will de-escalate to Zosyn Card: currently NSR, history of CAD and afib, vitals stable, mild trop elevated peak 0.14 and downtrended, ECHO 04/06 preserved EF 60% FEN-GI: GI prophylaxis, will begin tube feeds Renal: miranda catheter with good UOP, 20 mg Lasix PRN, no JOHANNY, Vanc trough elevated, monitor renal function ID: mild leukocytosis improving, sputum culture (04/07) has NGTD but GPC seen, blood cultures x3 and urine culture (04/06) NGTD, day 3 of Vanc and Zosyn, de- escalate upon micro Heme/Onc: anemia, awaiting iron panel, vit B12, folate, continue to monitor H/H and may consider transfusion, DVT prophylaxis with Heparin Endo: glucose monitored MSK: skin care per ICU protocol Lines: left PICC, left EPIV, ETT, OG, miranda Subjective Principal diagnosis: Aucte on chronic hypoxic hypercapnic respiratory failure Interval history: No major events overnight. Patient seen and examined at bedside. He is currently tolerating CPAP trial. He appears in no acute distress. Attempts to talk but unable to speak with ET in place. Follows simple commands. Objective PUL Vital signs: Last Vital Signs Temp 98.4 F 04/08/17 03:55 Pulse 107 04/08/17 06:00 Resp 21 04/08/17 06:00 BP 118/69 04/08/17 06:00 Pulse Ox 99 04/08/17 06:00 General appearance: no acute distress, alert, other (opens eyes to voice and follows simple commands) Eyes: nonicteric, other (PERRL, EOMI) ENT: other (endotracheal tube and OG in place) Neck: other (severe cervical kyphosis) Effort: normal (tachypneic, CPAP trial, good symmetric chest wall rise) Auscultation: bilateral: clear, diminished breath sounds Cardiovascular: regular rate and rhythm Gastrointestinal: normoactive bowel sounds, soft, non-tender, non-distended, other (midline scar) Integumentary: other (chronic bilateral LE venous stasis) Extremities: no edema, no clubbing, other (PICC and EPIV in left arm, AV fistula in right arm with palpable thrill and audible bruit) Musculoskeletal: no deformities non-focal exam (moves all 4 extremities to command, no facial droop), pupils equal and round, unable to assess due to mental status PICC and EPIV in left upper arm without signs of infection Ventilator Settings Ventilator Settings: Ventilator Settings, Last 8 Hours Ventilator Mode CPAP Ventilator Mode VC+ Ventilator Mode VC+ Ventilator Mode VC+ Ventilator Mode VC+ Ventilator Mode VC+ Ventilator Mode VC+ Ventilator Tidal Volume 400 Setting Ventilator Tidal Volume 400 Setting Ventilator Tidal Volume 400 Setting Ventilator Tidal Volume 400 Setting Ventilator Tidal Volume 400 Setting Ventilator Tidal Volume 400 Setting Ventilator Respiratory Rate 12 Setting Ventilator Respiratory Rate 12 Setting Ventilator Respiratory Rate 12 Setting Ventilator Respiratory Rate 12 Setting Ventilator Respiratory Rate 12 Setting Ventilator Respiratory Rate 12 Setting Actual Respiratory Rate 24 Actual Respiratory Rate 12 Actual Respiratory Rate 23 Actual Respiratory Rate 15 Actual Respiratory Rate 23 Actual Respiratory Rate 23 Positive End Expiratory 5 Pressure Positive End Expiratory 5 Pressure Positive End Expiratory 5 Pressure Positive End Expiratory 5 Pressure Positive End Expiratory 5 Pressure Positive End Expiratory 5 Pressure Peak Inspiratory Airway 15 Pressure Peak Inspiratory Airway 22 Pressure Peak Inspiratory Airway 23 Pressure Peak Inspiratory Airway 25 Pressure Peak Inspiratory Airway 24 Pressure Peak Inspiratory Airway 24 Pressure Results - Laboratory Findings CBC and BMP: 05/17/17 04:10 04/08/17 04:10 ABG ABG pH 7.43 pH Units (7.32-7.45) 04/08/17 03:51 ABG pCO2 60 mmHg (35-45) H 04/08/17 03:51 ABG pO2 101 mmHg (85-104) 04/08/17 03:51 ABG O2 Saturation 98 % (95-98) 04/08/17 03:51 PT/INR, D-dimer PT 13.1 Seconds (9.4-12.1) H 04/06/17 08:10 Abnormal lab findings: Abnormal lab results WBC 11.6 K/mcL (4.3-11.1) H 04/08/17 04:10 RBC 2.78 M/mcL (4.19-5.50) L 04/08/17 04:10 Hgb 7.8 g/dL (12.9-16.9) L 04/08/17 04:10 Hct 24.5 % (37.5-50.1) L 04/08/17 04:10 MPV 8.9 fL (9.4-12.4) L 04/08/17 04:10 Neutrophils # 10.5 K/mcL (1.6-8.9) H 04/08/17 04:10 Lymphocytes # 0.5 K/mcL (0.6-4.6) L 04/08/17 04:10 PT 13.1 Seconds (9.4-12.1) H 04/06/17 08:10 APTT 23.7 Seconds (26.0-36.0) L 04/06/17 08:10 ABG pCO2 60 mmHg (35-45) H 04/08/17 03:51 ABG HCO3 39.8 mEQ/L (21-27) H 04/08/17 03:51 ABG Total CO2 41.6 mEq/L (20-26) H 04/08/17 03:51 ABG Base Excess 13.7 mEq/L (-2.0 to 3.0) H 04/08/17 03:51 Sodium 134 mEq/L (136-145) L 04/08/17 04:10 Chloride 90 mEq/L (98-109) L 04/08/17 04:10 Carbon Dioxide 35 mEq/L (19-29) H 04/08/17 04:10 BUN 36 mg/dL (8-26) H 04/08/17 04:10 BUN/Creatinine Ratio 33 (6-26) H 04/08/17 04:10 Glucose 134 mg/dL (70-99) H 04/08/17 04:10 POC Glucose 146 (58-89) H 04/08/17 00:19 Calcium 8.1 mg/dL (8.6-10.8) L 04/08/17 04:10 Ionized Calcium 1.00 mmol/L (1.15-1.35) L 04/08/17 04:10 Troponin I 0.08 ng/mL (0-0.03) H* 04/07/17 03:05 B-Natriuretic Peptide 263 pg/mL (0-100) H 04/06/17 05:46 Albumin 2.7 g/dL (3.5-5.0) L 04/06/17 05:46 Globulin 4.7 g/dL (2.4-3.5) H 04/06/17 05:46 Albumin/Globulin Ratio 0.6 (1.1-2.2) L 04/06/17 05:46 Urine Protein 30 mg/dL (Neg-Trace) H 04/06/17 09:45 Urine Blood Trace (Negative) H 04/06/17 09:45 Ur Leukocyte Esterase Large (Negative) H 04/06/17 09:45 Urine Microscopic RBC 5-15 per hpf (0-3) H 04/06/17 09:45 Urine Microscopic WBC TNTC per hpf (0-3) H 04/06/17 09:45 Urine Bacteria Many per hpf (None-Few) H 04/06/17 09:45 Ur Culture Indicated? YES (NO) A 04/06/17 09:45 Vancomycin Trough 24.3 mcg/mL (10-20) H* 04/07/17 17:44 - Microbiology Findings Microbiology Findings: Microbiology, Last 48 Hours 04/06/17 10:30 Blood Culture - Preliminary Central Venous Catheter No growth. 04/07/17 07:45 Sputum Culture - Preliminary Sputum 04/06/17 09:45 Urine Culture - Final Urine,Clean Catch No growth. 04/06/17 09:45 Legionella Antigen - Final Urine,[place] Streptococcus pneumoniae Antigen (M - Final - Diagnostic Findings Chest x-ray: report reviewed, image reviewed - Clinical Findings Intake & Output: Intake & Output 04/07/17 04/07/17 04/08/17 15:59 23:59 07:59 Intake Total 754 / 754 100 / 100 46 / 46 Output Total 350 / 350 150 / 150 425 / 425 Balance 404 / 404 -50 / -50 -379 / -379 Weight 85.5 kg 85.5 kg
[2017-04-08] MEDS: Pantoprazole 40 MG VIAL IVP SCH (08:00)
[2017-04-08] MEDS: Simethicone 80 MG TAB.CHEW PO SCH ×3 (08:00→17:43)
[2017-04-08] MEDS: *HR* Digoxin 0.125 MG TABLET PO SCH (08:00)
[2017-04-08 08:46] LABS: Immature Reticulocyte % 29.3 % (11.0-38.0); Retculocyte # 0.06 M/mcL (0.05-0.10); Reticulocyte % 2.1 % (1.6-2.8)
[2017-04-08] MEDS ORDERED: Calcium Gluconate 1,000 MG in D5% in Water 100 ML IVPB PRN (09:05)
[2017-04-08] MEDS ORDERED: Magnesium Sulfate 2 GM in D5% in Water 100 ML IVPB PRN (09:05)
[2017-04-08] MEDS: Potassium Chloride 40 MEQ/200 ML BAG IVPB PRN (09:54)
[2017-04-08 10:25] LABS: % Iron Saturation 10 % (20-55); Iron 27 mcg/dL (65-175); Transferrin 195 mg/dL (174-364)
[2017-04-08] MEDS ORDERED: Aminoglycoside Consult 1 EACH MC ONE (10:54)
[2017-04-08 11:12] LABS: Ferritin 203 ng/ml (22-275)
[2017-04-08 11:29] LABS: Folate 8.3 ng/mL (7.0-31.4)
[2017-04-08] MEDS: FentaNYL (PF) 1,000 MCG in 0.9 % Sodium Chloride 80 ML IVC SCH ×2 (17:44→20:00)
[2017-04-09] MEDS: Piperacillin/Tazobactam 3.375 GM in D5% in Water (Mini-Bag+) 100 ML IVPB SCH ×2 (02:08→09:45)
[2017-04-09] MEDS: Ipratropium Neb 0.5 MG NEBULIZER IH SCH ×4 (03:56→21:03)
[2017-04-09] MEDS: Levalbuterol Neb 1.25 MG/3 ML IH SCH ×4 (03:57→21:03)
[2017-04-09 04:39] LABS: Hematocrit 23.9 % (37.5-50.1); Hemoglobin 7.6 g/dL (12.9-16.9); Immature Granulocytes % 0.6 % (0-4); Lymphocytes # 0.7 K/mcL (0.6-4.6); Lymphocytes % 7.2 %; Mean Corpuscular HGB Conc 31.8 g/dL (31.6-35.5); Mean Corpuscular Volume 88.2 fL (83.0-100.0); Mean Platelet Volume 8.8 fL (9.4-12.4); Monocytes % 10.1 %; Neutrophils # 7.8 K/mcL (1.6-8.9); Platelet Count 291 K/mcL (140-400); Red Blood Count 2.71 M/mcL (4.19-5.50); Red Cell Distribution Width 13.8 % (11.5-14.5); Segmented Neutrophils % 82.1 %
[2017-04-09] MEDS: *HR* Heparin 5,000 UNIT/ML VIAL SQ SCH ×3 (05:28→22:51)
[2017-04-09] MEDS: Norepinephrine 4 MG in D5% in Water 250 ML IVC SCH (05:29)
[2017-04-09 05:38] LABS: BUN/Creatinine Ratio 36 (6-26); Blood Urea Nitrogen 33 mg/dL (8-26); Calcium 8.1 mg/dL (8.6-10.8); Carbon Dioxide 33 mEq/L (19-29); Chloride 93 mEq/L (98-109); Glucose 104 mg/dL (70-99); Osmolality,Calculated 288 (280-300); Potassium 3.5 mEq/L (3.5-4.5); Sodium 135 mEq/L (136-145); eGFR For African Americans > 60 (> 60); eGFR For Non-African Americans > 60 (> 60)
--- NOTE | 2017-04-09 07:50 | Pulmonology Progress Note ---
<TimoVic W - Last Filed: 04/09/17 10:02> Date of Encounter: 04/09/17 Objective PUL Vital signs: Last Vital Signs Temp 97.9 F 04/09/17 07:57 Pulse 116 04/09/17 08:26 Resp 22 04/09/17 08:26 BP 119/61 04/09/17 08:26 Pulse Ox 100 04/09/17 07:54 Ventilator Settings Ventilator Settings: Ventilator Settings, Last 8 Hours Ventilator Mode CPAP Ventilator Mode CPAP Ventilator Mode A/C Ventilator Mode A/C Ventilator Tidal Volume 400 Setting Ventilator Tidal Volume 400 Setting Ventilator Respiratory Rate 12 Setting Ventilator Respiratory Rate 12 Setting Actual Respiratory Rate 14 Actual Respiratory Rate 22 Actual Respiratory Rate 20 Positive End Expiratory 5 Pressure Positive End Expiratory 5 Pressure Positive End Expiratory 5 Pressure Positive End Expiratory 5 Pressure Peak Inspiratory Airway 16 Pressure Peak Inspiratory Airway 14 Pressure Peak Inspiratory Airway 26 Pressure Peak Inspiratory Airway 25 Pressure Results - Laboratory Findings CBC and BMP: 04/09/17 04:20 04/09/17 04:20 ABG ABG pH 7.43 pH Units (7.32-7.45) 04/08/17 03:51 ABG pCO2 60 mmHg (35-45) H 04/08/17 03:51 ABG pO2 101 mmHg (85-104) 04/08/17 03:51 ABG O2 Saturation 98 % (95-98) 04/08/17 03:51 PT/INR, D-dimer PT 13.1 Seconds (9.4-12.1) H 04/06/17 08:10 Abnormal lab findings: Abnormal lab results RBC 2.71 M/mcL (4.19-5.50) L 04/09/17 04:20 Hgb 7.6 g/dL (12.9-16.9) L 04/09/17 04:20 Hct 23.9 % (37.5-50.1) L 04/09/17 04:20 MPV 8.8 fL (9.4-12.4) L 04/09/17 04:20 Retic Hgb Equivalent 27.7 pg (28.61-36.33) L 04/08/17 04:10 PT 13.1 Seconds (9.4-12.1) H 04/06/17 08:10 APTT 23.7 Seconds (26.0-36.0) L 04/06/17 08:10 ABG pCO2 60 mmHg (35-45) H 04/08/17 03:51 ABG HCO3 39.8 mEQ/L (21-27) H 04/08/17 03:51 ABG Total CO2 41.6 mEq/L (20-26) H 04/08/17 03:51 ABG Base Excess 13.7 mEq/L (-2.0 to 3.0) H 04/08/17 03:51 Sodium 135 mEq/L (136-145) L 04/09/17 04:20 Chloride 93 mEq/L (98-109) L 04/09/17 04:20 Carbon Dioxide 33 mEq/L (19-29) H 04/09/17 04:20 BUN 33 mg/dL (8-26) H 04/09/17 04:20 BUN/Creatinine Ratio 36 (6-26) H 04/09/17 04:20 Glucose 104 mg/dL (70-99) H 04/09/17 04:20 POC Glucose 129 (58-89) H 04/08/17 17:46 Calcium 8.1 mg/dL (8.6-10.8) L 04/09/17 04:20 Ionized Calcium 1.00 mmol/L (1.15-1.35) L 04/08/17 04:10 Iron 27 mcg/dL (65-175) L 04/08/17 04:10 % Saturation 10 % (20-55) L 04/08/17 04:10 Troponin I 0.08 ng/mL (0-0.03) H* 04/07/17 03:05 B-Natriuretic Peptide 263 pg/mL (0-100) H 04/06/17 05:46 Albumin 2.7 g/dL (3.5-5.0) L 04/06/17 05:46 Globulin 4.7 g/dL (2.4-3.5) H 04/06/17 05:46 Albumin/Globulin Ratio 0.6 (1.1-2.2) L 04/06/17 05:46 Urine Protein 30 mg/dL (Neg-Trace) H 04/06/17 09:45 Urine Blood Trace (Negative) H 04/06/17 09:45 Ur Leukocyte Esterase Large (Negative) H 04/06/17 09:45 Urine Microscopic RBC 5-15 per hpf (0-3) H 04/06/17 09:45 Urine Microscopic WBC TNTC per hpf (0-3) H 04/06/17 09:45 Urine Bacteria Many per hpf (None-Few) H 04/06/17 09:45 Ur Culture Indicated? YES (NO) A 04/06/17 09:45 Vancomycin Trough 24.3 mcg/mL (10-20) H* 04/07/17 17:44 - Microbiology Findings Microbiology Findings: Microbiology, Last 48 Hours 04/07/17 07:45 Sputum Culture - Preliminary Sputum Yeast Species 04/06/17 10:30 Blood Culture - Preliminary Central Venous Catheter No growth. 04/06/17 09:45 Urine Culture - Final Urine,Clean Catch No growth. - Clinical Findings Intake & Output: Intake & Output 04/08/17 04/09/17 04/09/17 23:59 07:59 15:59 Intake Total 357 / 357 441 / 441 Output Total 600 / 600 425 / 425 Balance -243 / -243 Weight 85.2 kg Consult Discharge Plan - Plan Referrals: Solis Crowder MD [Primary Care Provider] - - Attending Attestation I examined this patient and my medical decision-making was reviewed with the [employer]/PA/Advanced Practice Nurse/Resident Physician. I agree with the documented findings, disposition and treatment plan as described except to the extent set forth below. Patient seen and examined at bedside Labs, radiology, chart personally reviewed. All lines examined without evidence of infection. Neuropsych: awake and alert still confused at times. Focus on sleep wake cycle christian. Pulm: Acute on chronic hypoxic hypercapnic respiratory failure multifactorial including musculoskeletal deformity chronic heart failure underlying COPD presumed pneumonia and muscle weakness. Liberated from vent today to NIPPV. Trial nasal cannula later in day and cont NIPPV at night. cont enteral steroids to complete 5 day course. Cont bronchodilators Cards: History of CAD s/p CABG mild trop elevation with type 2 DE ECHO shows primarily chronic changes troponin has peaked. MAP stable (>60). Cont Digoxin and CCB for chronic afib which is rate controlled today. FEN-GI:NPO for now.until off NIPPV and passes speech/swallow evall. start bowel regimen. Renal: no JOHANNY cont monitor urine output with Miranda catheter. Gentle diuresis today to keep net negative ID: Sepsis s/t to PNA leuckocytosis has resolved appropriate abx sputum culture pending but prelim no growth. Switch to ceftriaxone to complete 7 day course Heme/Onc: cont DVT prophylaxis with Heparin Endo: Glucose monitored. Integ/MSK: skin care per ICU protocol' PT/OT consult. CODE: Full code. <Lonnie Restrepo - Last Filed: 04/09/17 14:21> Date of Encounter: 04/09/17 Time of Encounter: 07:50 Assessment and Plan (1) Acute on chronic respiratory failure with hypoxia and hypercapnia Current Visit: Yes Status: Acute tolerated CPAP yesterday and all morning extubated to BiPAP 04/09, currently tolerating well pulling in Vt >400 with respiration <30 continue to monitor trial NC later today and BiPAP prn at night continue scheduled duonebs and steroids - start on Prednsione 40mg daily for 5 days NPO until passes swallow/speech evaluation (2) Acute exacerbation of chronic obstructive airways disease Current Visit: Yes Status: Acute history of COPD diminished breath sounds, no wheezes today continue scheduled bronchodilators and steroids - adverse reaction to Albuterol, scheduled Xopenex will continue with 5 days of Prednisone 40 mg (3) Sepsis Current Visit: Yes Status: Acute improving continues to meet SIRS criteria for tachycardia and tachypnea remains afebrile and leukocytosis has resolved 9.6 (11.6) lactate (04/06) normal 0.6 source is likely pulmonary - CT chest 04/06, shows bilateral lower lobe opacities, calcified pleural plaques , and pulm hypertension - sputum culture (04/07) has NGTD but GPC seen - blood cultures x3 (04/06) NGTD - urine culture (04/06) NGTD patient remains on empiric antibiotics Vanc and Zosyn (day 4) - Levaquin was discontinued 04/07 - pharmacy to dose Vanc - Vanc trough elevated 24.3 - will de-escalate to Zosyn will continue to monitor vital signs and renal function Qualifiers: Sepsis type: sepsis due to unspecified organism Qualified Code(s): A41.9 - Sepsis, unspecified organism (4) HCAP (healthcare-associated pneumonia) Current Visit: Yes Status: Acute recent hospitalizations at [facility] CXR and CT chest 04/06 suggestive of pneumonia empiric treatment with Zosyn (day 4) - elevated Vanc trough 24.3, de-escalated to Zosyn 04/08 - switch to Ceftriaxone to complete 7 day course urine antigens negative sputum culture 04/07 yeast species, preliminary (5) Anemia Current Visit: Yes Status: Chronic component of iron deficiency history of liver hematoma and hemorrhage hemoglobin remains stable at 7.6 (7.8) anemia workup - iron saturation 10% - iron low at 27 - transferrin and ferritin normal - Vit B12 and Folate normal no signs of active bleeding no indication for transfusion at this time continue to monitor H/H Qualifiers: Anemia type: unspecified type Qualified Code(s): D64.9 - Anemia, unspecified (6) Altered mental status Current Visit: Yes Status: Acute improved, alert and oriented to person, place, and year likely secondary to CO2 narcosis and sepsis encourage good sleep-wake cycle christian Qualifiers: Altered mental status type: unspecified Qualified Code(s): R41.82 - Altered mental status, unspecified (7) Diastolic congestive heart failure Current Visit: Yes Status: Chronic reported previous admission to [facility] for acute exacerbation of CHF within last 3 weeks - will attempt to obtain records ECHO (04/06) EF 60%, atypical eptal motion, indeterminate diastolic function, mild TR, no pulm hypertension, rhythm initially NSR and then A-fib - last ECHO 02/23 was sub-optimal but showed EF 55%, normal LV systolic function, atypical septal motion, normal diastolic function and mild TR and moderated pulm HTN RVSP = 58 mmHg continue home meds Dig level 0.8 monitor I/O continues to have good diuresis 1225 UOP yesterday Qualifiers: Congestive heart failure chronicity: unspecified congestive heart failure chronicity Qualified Code(s): I50.30 - Unspecified diastolic (congestive) heart failure (8) Elevated troponin Current Visit: Yes Status: Acute troponin initially 0.05 likely due to demand ischemia - peak 0.14 and downtrended 0.08 - EKG atrial fibrillation with normal ventricular response, no ischemic changes (9) Coronary artery disease Current Visit: No Status: Chronic significant history of CAD s/p CABG (1983 and repeat 2001) and multiple stents continue home medications Qualifiers: Coronary Disease-Associated Artery/Lesion type: bypass graft [place] vs. transplanted heart: [place] heart Associated angina: without angina Qualified Code(s): I25.810 - Atherosclerosis of coronary artery bypass graft(s) without angina pectoris (10) Cervical kyphosis Current Visit: Yes Status: Chronic reportedly secondary fracture and osteoporosis limited neck movement Qualifiers: Kyphosis type: unspecified Qualified Code(s): M40.202 - Unspecified kyphosis, cervical region (11) Atrial fibrillation Current Visit: Yes Status: Chronic history of atrial fibrillation with ablation per medical records currently NSR rate <110 continue home medications - switch back to Cardizem 240 ER tomorrow IV Lopressor PRN Qualifiers: Atrial fibrillation type: unspecified Qualified Code(s): I48.91 - Unspecified atrial fibrillation (12) Pleural plaque Current Visit: Yes Status: Chronic possible asbestos exposure findings suggestive on CT Chest 04/06 review of old records shows evidence in 2013 will obtain old images for comparison follow up as outpatient recommended - would likely benefit from medical pleuroscopy on non-urgent basis (13) AV fistula Current Visit: Yes Status: Acute patient and family aware of AV fistula in right arm denies any history of kidney failure or dialysis suspect this was from heart catheterization and CABG in 1983 palpable thrill and audible bruit (14) Difficult airway for intubation Current Visit: Yes Status: Acute severe cervical kyphosis anesthesia called to bedside for assistance intubated successfully with fiberoptic CXR confirms proper placement of ETT Qualifiers: Encounter type: initial encounter Qualified Code(s): T88.4XXA - Failed or difficult intubation, initial encounter (15) Difficult intravenous access Current Visit: Yes Status: Acute patient presents with left PICC in upper arm - reports recent IV antibiotics at [facility] for suspected UTI CT Chest appears to show tip of PICC in the right atrium, suggested to pull back 4 cm to proximal SVC an additional EPIV placed in left upper arm (16) Constipation Current Visit: Yes Status: Acute low frequency BM extubated 03/30, begin bowel regimen with suppository Dulcolax CT abd/pelvis 04/08 shows stool burden Qualifiers: Constipation type: unspecified constipation type Qualified Code(s): K59.00 - Constipation, unspecified (17) DVT prophylaxis Current Visit: Yes Status: 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 Extubated from vent today 04/09, trial NC today and BiPAP at night prn. Switch to Ceftriaxone for total of 7 days. Continue bronchodilators and steroids Card: currently NSR, history of CAD and afib, vitals stable, mild trop elevated peak 0.14 and downtrended, ECHO 04/06 preserved EF 60%. Continue Digoxin and CCB FEN-GI: GI prophylaxis, NPO now until NIPPV off and passes a speech/swallow evaluation. Bowel regimen started with suppository Dulcolax Renal: miranda catheter with good UOP, 20 mg Lasix PRN, no JOHANNY, Vanc trough elevated, monitor renal function ID: sputum culture (04/07) has NGTD but GPC seen, blood cultures x3 and urine culture (04/06) NGTD, day 4 of Zosyn, switch to Ceftriaxone to complete 7 day course Heme/Onc: anemia stable, continue to monitor H/H and may consider transfusion, DVT prophylaxis with Heparin Endo: glucose monitored MSK: skin care per ICU protocol, PT/OT consulted Lines: left PICC, left EPIV, ETT, OG, miranda Subjective Principal diagnosis: [place] on chronic hypoxic hypercapnic respiratory failure Interval history: No major events overnight. Patient seen and examined at bedside. He was currently tolerating CPAP trial all morning and was extubated to BiPAP successfully. He is pulling in good tidal volumes and respirations <30. He appears in no acute distress. Reports some neck discomfort but denies any difficulty in breathing, shortness of breath, chest pain, or abdominal pain. He is awaiting his to arrive with his hearing aids Objective PUL Vital signs: Last Vital Signs Temp 97.8 F 04/09/17 04:00 Pulse 102 04/09/17 07:20 Resp 16 04/09/17 07:20 BP 109/56 04/09/17 07:20 Pulse Ox 100 04/09/17 07:20 General appearance: no acute distress, alert (initially oriented to person, slightly disoriented but interactive and now answering questions appropriately oriented to person, place, and year) Eyes: nonicteric, other (PERRL, EOMI) Neck: other (severe cervical kyphosis) Effort: normal Auscultation: bilateral: clear Cardiovascular: regular rate and rhythm Gastrointestinal: normoactive bowel sounds, soft, non-tender, non-distended Integumentary: other (chronic venous stasis, no erythema or lesions) Extremities: no edema, pulses normal Musculoskeletal: no deformities, ROM normal normal mental status, non-focal exam, pupils equal and round, motor strength normal and symmetric PICC and EPIV in left upper arm without signs of infection Ventilator Settings Ventilator Settings: Ventilator Settings, Last 8 Hours Ventilator Mode CPAP Ventilator Mode A/C Ventilator Mode A/C Ventilator Mode A/C Ventilator Tidal Volume 400 Setting Ventilator Tidal Volume 400 Setting Ventilator Tidal Volume 400 Setting Ventilator Respiratory Rate 12 Setting Ventilator Respiratory Rate 12 Setting Ventilator Respiratory Rate 12 Setting Actual Respiratory Rate 22 Actual Respiratory Rate 20 Actual Respiratory Rate 21 Positive End Expiratory 5 Pressure Positive End Expiratory 5 Pressure Positive End Expiratory 5 Pressure Positive End Expiratory 5 Pressure Peak Inspiratory Airway 14 Pressure Peak Inspiratory Airway 26 Pressure Peak Inspiratory Airway 25 Pressure Peak Inspiratory Airway 25 Pressure Results - Laboratory Findings CBC and BMP: 04/09/17 04:20 04/09/17 04:20 ABG ABG pH 7.43 pH Units (7.32-7.45) 04/08/17 03:51 ABG pCO2 60 mmHg (35-45) H 04/08/17 03:51 ABG pO2 101 mmHg (85-104) 04/08/17 03:51 ABG O2 Saturation 98 % (95-98) 04/08/17 03:51 PT/INR, D-dimer PT 13.1 Seconds (9.4-12.1) H 04/06/17 08:10 Abnormal lab findings: Abnormal lab results RBC 2.71 M/mcL (4.19-5.50) L 04/09/17 04:20 Hgb 7.6 g/dL (12.9-16.9) L 04/09/17 04:20 Hct 23.9 % (37.5-50.1) L 04/09/17 04:20 MPV 8.8 fL (9.4-12.4) L 04/09/17 04:20 Retic Hgb Equivalent 27.7 pg (28.61-36.33) L 04/08/17 04:10 PT 13.1 Seconds (9.4-12.1) H 04/06/17 08:10 APTT 23.7 Seconds (26.0-36.0) L 04/06/17 08:10 ABG pCO2 60 mmHg (35-45) H 04/08/17 03:51 ABG HCO3 39.8 mEQ/L (21-27) H 04/08/17 03:51 ABG Total CO2 41.6 mEq/L (20-26) H 04/08/17 03:51 ABG Base Excess 13.7 mEq/L (-2.0 to 3.0) H 04/08/17 03:51 Sodium 135 mEq/L (136-145) L 04/09/17 04:20 Chloride 93 mEq/L (98-109) L 04/09/17 04:20 Carbon Dioxide 33 mEq/L (19-29) H 04/09/17 04:20 BUN 33 mg/dL (8-26) H 04/09/17 04:20 BUN/Creatinine Ratio 36 (6-26) H 04/09/17 04:20 Glucose 104 mg/dL (70-99) H 04/09/17 04:20 POC Glucose 129 (58-89) H 04/08/17 17:46 Calcium 8.1 mg/dL (8.6-10.8) L 04/09/17 04:20 Ionized Calcium 1.00 mmol/L (1.15-1.35) L 04/08/17 04:10 Iron 27 mcg/dL (65-175) L 04/08/17 04:10 % Saturation 10 % (20-55) L 04/08/17 04:10 Troponin I 0.08 ng/mL (0-0.03) H* 04/07/17 03:05 B-Natriuretic Peptide 263 pg/mL (0-100) H 04/06/17 05:46 Albumin 2.7 g/dL (3.5-5.0) L 04/06/17 05:46 Globulin 4.7 g/dL (2.4-3.5) H 04/06/17 05:46 Albumin/Globulin Ratio 0.6 (1.1-2.2) L 04/06/17 05:46 Urine Protein 30 mg/dL (Neg-Trace) H 04/06/17 09:45 Urine Blood Trace (Negative) H 04/06/17 09:45 Ur Leukocyte Esterase Large (Negative) H 04/06/17 09:45 Urine Microscopic RBC 5-15 per hpf (0-3) H 04/06/17 09:45 Urine Microscopic WBC TNTC per hpf (0-3) H 04/06/17 09:45 Urine Bacteria Many per hpf (None-Few) H 04/06/17 09:45 Ur Culture Indicated? YES (NO) A 04/06/17 09:45 Vancomycin Trough 24.3 mcg/mL (10-20) H* 04/07/17 17:44 - Microbiology Findings Microbiology Findings: Microbiology, Last 48 Hours 04/07/17 07:45 Sputum Culture - Preliminary Sputum Yeast Species 04/06/17 10:30 Blood Culture - Preliminary Central Venous Catheter No growth. 04/06/17 09:45 Urine Culture - Final Urine,Clean Catch No growth. - Clinical Findings Intake & Output: Intake & Output 04/08/17 04/08/17 04/09/17 15:59 23:59 07:59 Intake Total 160 / 160 357 / 357 441 / 441 Output Total 200 / 200 600 / 600 275 / 275 Balance -40 / -40 -243 / -243 166 / 166 Weight 85.2 kg
[2017-04-09] MEDS: Simethicone 80 MG TAB.CHEW PO SCH ×3 (08:45→17:35)
[2017-04-09] MEDS: *HR* Digoxin 0.125 MG TABLET PO SCH (08:46)
[2017-04-09] MEDS ORDERED: predniSONE 20 MG TABLET PO SCH (09:00)
[2017-04-09] MEDS: Pantoprazole 40 MG VIAL IVP SCH (09:45)
[2017-04-09] MEDS ORDERED: Bisacodyl 10 MG RECTAL SUPPOSITORY RC SCH (10:15)
[2017-04-09] MEDS: Potassium Chloride 40 MEQ/200 ML BAG IVPB PRN (11:51)
[2017-04-09 15:32] LABS: ABG Base Excess 13.6 mEq/L (-2.0 to 3.0); ABG HCO3 41.5 mEQ/L (21-27); ABG Oxygen Saturation 100 % (95-98); ABG PH 7.34 pH Units (7.32-7.45); ABG PO2 210 mmHg (85-104); ABG TCO2 43.9 mEq/L (20-26)
[2017-04-09 15:33] LABS: Blood Gas Liter Flow 10 L/MIN
[2017-04-09 15:34] LABS: ABG PCO2 77 mmHg (35-45)
--- NOTE | 2017-04-09 15:34 | Electrocardiograph Report ---
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
[2017-04-10] MEDS: Ipratropium Neb 0.5 MG NEBULIZER IH SCH ×4 (04:52→22:49)
[2017-04-10] MEDS: Levalbuterol Neb 1.25 MG/3 ML IH SCH ×4 (04:52→22:49)
[2017-04-10] MEDS: *HR* Heparin 5,000 UNIT/ML VIAL SQ SCH ×3 (05:44→21:02)
--- NOTE | 2017-04-10 06:32 | Pulmonology Progress Note ---
<JoshcarlosVic cotto W - Last Filed: 04/10/17 11:40> Date of Encounter: 04/10/17 Objective PUL Vital signs: Last Vital Signs Temp 97.7 F 04/10/17 08:51 Pulse 91 04/10/17 09:00 Resp 20 04/10/17 09:00 BP 120/86 04/10/17 09:00 Pulse Ox 99 04/10/17 09:00 Results - Laboratory Findings CBC and BMP: 04/10/17 07:10 04/10/17 07:10 ABG ABG pH 7.38 pH Units (7.32-7.45) 04/10/17 07:30 ABG pCO2 70 mmHg (35-45) H* 04/10/17 07:30 ABG pO2 52 mmHg (85-104) L 04/10/17 07:30 ABG O2 Saturation 86 % (95-98) L 04/10/17 07:30 PT/INR, D-dimer PT 13.1 Seconds (9.4-12.1) H 04/06/17 08:10 Abnormal lab findings: Abnormal lab results WBC 13.2 K/mcL (4.3-11.1) H 04/10/17 07:10 RBC 2.76 M/mcL (4.19-5.50) L 04/10/17 07:10 Hgb 8.1 g/dL (12.9-16.9) L 04/10/17 07:10 Hct 25.4 % (37.5-50.1) L 04/10/17 07:10 MPV 8.9 fL (9.4-12.4) L 04/10/17 07:10 Neutrophils # 10.1 K/mcL (1.6-8.9) H 04/10/17 07:10 Retic Hgb Equivalent 27.7 pg (28.61-36.33) L 04/08/17 04:10 PT 13.1 Seconds (9.4-12.1) H 04/06/17 08:10 APTT 23.7 Seconds (26.0-36.0) L 04/06/17 08:10 ABG pCO2 70 mmHg (35-45) H* 04/10/17 07:30 ABG pO2 52 mmHg (85-104) L 04/10/17 07:30 ABG HCO3 41.4 mEQ/L (21-27) H 04/10/17 07:30 ABG Total CO2 43.5 mEq/L (20-26) H 04/10/17 07:30 ABG O2 Saturation 86 % (95-98) L 04/10/17 07:30 ABG Base Excess 14.3 mEq/L (-2.0 to 3.0) H 04/10/17 07:30 Chloride 97 mEq/L (98-109) L 04/10/17 07:10 Carbon Dioxide 34 mEq/L (19-29) H 04/10/17 07:10 BUN/Creatinine Ratio 30 (6-26) H 04/10/17 07:10 POC Glucose 91 (58-89) H 04/10/17 04:19 Calcium 8.4 mg/dL (8.6-10.8) L 04/10/17 07:10 Ionized Calcium 1.00 mmol/L (1.15-1.35) L 04/08/17 04:10 Iron 27 mcg/dL (65-175) L 04/08/17 04:10 % Saturation 10 % (20-55) L 04/08/17 04:10 Troponin I 0.08 ng/mL (0-0.03) H* 04/07/17 03:05 B-Natriuretic Peptide 263 pg/mL (0-100) H 04/06/17 05:46 Albumin 2.7 g/dL (3.5-5.0) L 04/06/17 05:46 Globulin 4.7 g/dL (2.4-3.5) H 04/06/17 05:46 Albumin/Globulin Ratio 0.6 (1.1-2.2) L 04/06/17 05:46 Urine Protein 30 mg/dL (Neg-Trace) H 04/06/17 09:45 Urine Blood Trace (Negative) H 04/06/17 09:45 Ur Leukocyte Esterase Large (Negative) H 04/06/17 09:45 Urine Microscopic RBC 5-15 per hpf (0-3) H 04/06/17 09:45 Urine Microscopic WBC TNTC per hpf (0-3) H 04/06/17 09:45 Urine Bacteria Many per hpf (None-Few) H 04/06/17 09:45 Ur Culture Indicated? YES (NO) A 04/06/17 09:45 Vancomycin Trough 24.3 mcg/mL (10-20) H* 04/07/17 17:44 - Microbiology Findings Microbiology Findings: Microbiology, Last 48 Hours 04/07/17 07:45 Sputum Culture - Preliminary Sputum Yeast Species 04/06/17 10:30 Blood Culture - Preliminary Central Venous Catheter No growth. - Clinical Findings Intake & Output: Intake & Output 04/09/17 04/10/17 04/10/17 23:59 07:59 15:59 Output Total 350 / 350 400 / 400 250 / 250 Balance -350 / -350 -400 / -400 -250 / -250 Weight 83.461 kg Consult Discharge Plan - Plan Referrals: Solis Crowder MD [Primary Care Provider] - - Attending Attestation I examined this patient and my medical decision-making was reviewed with the CAPTAIN'S ASSISTANT/PA/Advanced Practice Nurse/Resident Physician. I agree with the documented findings, disposition and treatment plan as described except to the extent set forth below. Patient seen and examined at bedside Labs, radiology, chart personally reviewed. All lines examined without evidence of infection. Neuropsych: awake and alert still confused at times. Focus on sleep wake cycle adventism. Pulm: Acute on chronic hypoxic hypercapnic respiratory failure multifactorial including musculoskeletal deformity chronic heart failure underlying COPD pneumonia. CHF and muscle weakness. Cont NCO2 delivery during day and NIPPV at night. Need to be qualified fro NIPPV at time of discharge. F/u pleural changes consider medical pleuroscopy when more stable. 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 Cards: History of CAD s/p CABG mild trop elevation with type 2 NE ECHO shows primarily chronic changes troponin has peaked. MAP stable (>60). Cont Digoxin and CCB for chronic afib which is rate controlled today. Restart daily diuretic FEN-GI:Clear for nectar thick diet by nutrition. Renal: no JOHANNY cont monitor urine output ok to remove miranda catheter. ID: Sepsis s/t to PNA leuckocytosis had resolved but saw spike today after deescalating ABx yesterday. restart Pip/Boogie to complete 7-10 day course. Recultured pending Heme/Onc: cont DVT prophylaxis with Heparin Endo: Glucose monitored. Integ/MSK: skin care per ICU protocol' PT/OT consulted CODE: Full code. Given chronic debilitation persistent need for ventilatory support and advanced age of consulted palliative care service to help facilitate goals of care discussion during this hospitalization. Stable for transfer to SDU. <Lonnie Restrepo - Last Filed: 04/10/17 11:54> Date of Encounter: 04/10/17 Time of Encounter: 06:32 Assessment and Plan (1) Acute on chronic respiratory failure with hypoxia and hypercapnia Current Visit: Yes Status: Acute improving multifactorial secondary to musculoskeletal abnormalities, chronic heart failure , COPD, and pneumonia extubated to BiPAP 04/09 - difficult intubation with fiberoptic with anesthesia at bedside for assistance 04/06/2017, alicia became tachypneic and unresponsive to verbal stimuli after failed NIPPV intervention and required intubation for protection of airway and respiratory failure from fatigue BiPAP prn at night ABG yesterday with aerosol mask 7.34/77/210/41.5/13.6 - ABG this morning 7.38/70/52/41.4/86 O2 sat/14.3 continue scheduled duonebs and steroids - finish Prednsione 40mg daily for 5 days de-escalated to Ceftriaxone from Zosyn 04/09, WBC elevated today concern for loss of anaerobic coverage, broadened back to Zosyn 04/10, complete Zosyn for full 7 day regimen, currently day 6 of antibiotics but will END 04/12 - repeat sputum culture sent stable for transfer to stepdown likely 2N (2) Acute exacerbation of chronic obstructive airways disease Current Visit: Yes Status: Acute history of COPD clear breath sounds continue scheduled bronchodilators and steroids - adverse reaction to Albuterol, scheduled Xopenex discontinued steroids 04/10 (3) Sepsis Current Visit: Yes Status: Acute improving continues to meet SIRS criteria remains afebrile leukocytosis today 13.2 (9.6) likely a stress reaction, continue to monitor source is likely pulmonary - CT chest 04/06, shows bilateral lower lobe opacities, calcified pleural plaques , and pulm hypertension - sputum culture (04/07) has NGTD and light yeast species, preliminary - blood cultures x3 (04/06) NGTD - urine culture (04/06) NGTD initial plan to complete full 7 day of antibiotic regimen, currently day 6 with Ceftriaxone but with increase in WBC will switch back to Zosyn and add additional day to regimen, END 04/12 - Levaquin was discontinued 04/07 - Vanc trough elevated 24.3 (04/07) - switched to Ceftriaxone 04/09 - switch back to Zosyn 04/10 will continue to monitor vital signs and renal function lactate (04/06) normal 0.6 Qualifiers: Sepsis type: sepsis due to unspecified organism Qualified Code(s): A41.9 - Sepsis, unspecified organism (4) HCAP (healthcare-associated pneumonia) Current Visit: Yes Status: Acute recent hospitalizations at [facility] CXR and CT chest 04/06 suggestive of pneumonia plan to complete full 8 day antibiotic regimen, currently day 6 - repeat sputum culture sent urine antigens negative sputum culture 04/07 yeast species, preliminary (5) Pleural plaque Current Visit: Yes Status: Chronic possible asbestos exposure findings suggestive on CT Chest 04/06 review of old records shows evidence in 2013 will obtain old images for comparison follow up as outpatient recommended - would likely benefit from medical pleuroscopy on non-urgent basis and possibly during this admission once in better medical condition (6) Anemia Current Visit: Yes Status: Chronic component of iron deficiency history of liver hematoma and hemorrhage hemoglobin remains stable at 8.1 (7.6) anemia workup - iron saturation 10% - iron low at 27 - transferrin and ferritin normal - Vit B12 and Folate normal no signs of active bleeding no indication for transfusion at this time continue to monitor H/H Qualifiers: Anemia type: unspecified type Qualified Code(s): D64.9 - Anemia, unspecified (7) Altered mental status Current Visit: Yes Status: Acute improved, alert and oriented to person, place, and year likely secondary to CO2 narcosis and sepsis encourage good sleep-wake cycle adventism Qualifiers: Altered mental status type: unspecified Qualified Code(s): R41.82 - Altered mental status, unspecified (8) Diastolic congestive heart failure Current Visit: Yes Status: Chronic reported previous admission to [facility] for acute exacerbation of CHF within last 3 weeks - will attempt to obtain records ECHO (04/06) EF 60%, atypical eptal motion, indeterminate diastolic function, mild TR, no pulm hypertension, rhythm initially NSR and then A-fib - last ECHO 02/23 was sub-optimal but showed EF 55%, normal LV systolic function, atypical septal motion, normal diastolic function and mild TR and moderated pulm HTN RVSP = 58 mmHg continue home meds Dig level 0.8 monitor I/O continues to have good diuresis 1050 UOP yesterday NET 1149 since admission Qualifiers: Congestive heart failure chronicity: unspecified congestive heart failure chronicity Qualified Code(s): I50.30 - Unspecified diastolic (congestive) heart failure (9) Atrial fibrillation Current Visit: Yes Status: Chronic history of atrial fibrillation with ablation per medical records currently NSR rate <110 continue home medications - switched back to Cardizem 240 ER IV Lopressor PRN Qualifiers: Atrial fibrillation type: unspecified Qualified Code(s): I48.91 - Unspecified atrial fibrillation (10) Coronary artery disease Current Visit: No Status: Chronic significant history of CAD s/p CABG (1983 and repeat 2001) and multiple stents continue home medications Qualifiers: Coronary Disease-Associated Artery/Lesion type: bypass graft [place] vs. transplanted heart: [place] heart Associated angina: without angina Qualified Code(s): I25.810 - Atherosclerosis of coronary artery bypass graft(s) without angina pectoris (11) Cervical kyphosis Current Visit: Yes Status: Chronic reportedly secondary fracture and osteoporosis limited neck movement Qualifiers: Kyphosis type: unspecified Qualified Code(s): M40.202 - Unspecified kyphosis, cervical region (12) AV fistula Current Visit: Yes Status: Acute patient and family aware of AV fistula in right arm denies any history of kidney failure or dialysis suspect this was from heart catheterization and CABG in 1983 palpable thrill and audible bruit (13) Difficult airway for intubation Current Visit: Yes Status: Acute severe cervical kyphosis anesthesia called to bedside for assistance intubated successfully with fiberoptic CXR confirms proper placement of ETT Qualifiers: Encounter type: initial encounter Qualified Code(s): T88.4XXA - Failed or difficult intubation, initial encounter (14) Difficult intravenous access Current Visit: Yes Status: Acute patient presents with left PICC in upper arm - reports recent IV antibiotics at [facility] for suspected UTI CT Chest appears to show tip of PICC in the right atrium, suggested to pull back 4 cm to proximal SVC an additional EPIV placed in left upper arm (15) Constipation Current Visit: Yes Status: Acute extubated 04/09, begin bowel regimen with suppository Dulcolax and home Senna CT abd/pelvis 5/17 shows stool burden Qualifiers: Constipation type: unspecified constipation type Qualified Code(s): K59.00 - Constipation, unspecified (16) DVT prophylaxis Current Visit: Yes Status: 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 Extubated from vent 04/09. BiPAP at night PRN. Switched back to Zosyn to complete total of 7 days, end 04/12. Continue bronchodilators and steroids Card: currently NSR, history of CAD and afib, vitals stable, mild trop elevated peak 0.14 and downtrended, ECHO 04/06 preserved EF 60%. Continue Digoxin and CCB FEN-GI: GI prophylaxis stopped continued on home dose Prilosec, nectar thickened liquids and soft textured diet, ADAT. Bowel regimen started with suppository Dulcolax Renal: miranda catheter with good UOP, home dose Lasix started, no JOHANNY, Vanc trough elevated, monitor renal function ID: sputum culture (04/07) has NGTD but yeast species, blood cultures x3 and urine culture (04/06) NGTD, switched back to Zosyn Heme/Onc: anemia stable, continue to monitor H/H and may consider transfusion, DVT prophylaxis with Heparin Endo: glucose monitored MSK: skin care per ICU protocol, PT/OT consulted Lines: left PICC, left EPIV, ETT, OG, miranda Subjective Principal diagnosis: [place] on chronic hypoxic hypercapnic respiratory failure Interval history: No major events overnight. Patient seen and examined at bedside. He was currently tolerating BiPAP. Denies any confusion, chest cole, shortness of breath , abdominal pain, nausea, or vomiting. No BM yet. Patient's breakfast came and after a few bites felt something stuck in his throat. O2 sats dropped to 72. Reports he may have choked, told him to cough and bits of chewed scrambled eggs came. He was suctioned and after a few sips of milk his saturations came up to 88%. His nasal cannula was also noted to be off. ABG resulted 7.38/70/52/41.4/86/14.3 and he was placed back on BiPAP. Objective PUL Vital signs: Last Vital Signs Temp 97.8 F 04/10/17 04:30 Pulse 118 04/10/17 06:00 Resp 21 04/10/17 05:32 BP 111/60 04/10/17 06:00 Pulse Ox 99 04/10/17 06:00 General appearance: no acute distress, alert Eyes: nonicteric ENT: oropharynx moist Neck: other (severe cervical kyphosis) Effort: normal Auscultation: bilateral: clear Cardiovascular: regular rate and rhythm Gastrointestinal: hypoactive bowel sounds, soft, non-tender, non-distended, other (midline scar) Integumentary: other (chronic bilateral lower extremity venous stasis) Extremities: no edema, pulses normal, other (AV fistula in right arm with palpable thrill and audible bruit) Musculoskeletal: no deformities, ROM normal normal mental status, non-focal exam, pupils equal and round, motor strength normal and symmetric Results - Laboratory Findings CBC and BMP: 04/10/17 07:10 04/10/17 07:10 ABG ABG pH 7.34 pH Units (7.32-7.45) 04/09/17 15:13 ABG pCO2 77 mmHg (35-45) H* 04/09/17 15:13 ABG pO2 210 mmHg (85-104) H 04/09/17 15:13 ABG O2 Saturation 100 % (95-98) H 04/09/17 15:13 PT/INR, D-dimer PT 13.1 Seconds (9.4-12.1) H 04/06/17 08:10 Abnormal lab findings: Abnormal lab results RBC 2.71 M/mcL (4.19-5.50) L 04/09/17 04:20 Hgb 7.6 g/dL (12.9-16.9) L 04/09/17 04:20 Hct 23.9 % (37.5-50.1) L 04/09/17 04:20 MPV 8.8 fL (9.4-12.4) L 04/09/17 04:20 Retic Hgb Equivalent 27.7 pg (28.61-36.33) L 04/08/17 04:10 PT 13.1 Seconds (9.4-12.1) H 04/06/17 08:10 APTT 23.7 Seconds (26.0-36.0) L 04/06/17 08:10 ABG pCO2 77 mmHg (35-45) H* 04/09/17 15:13 ABG pO2 210 mmHg (85-104) H 04/09/17 15:13 ABG HCO3 41.5 mEQ/L (21-27) H 04/09/17 15:13 ABG Total CO2 43.9 mEq/L (20-26) H 04/09/17 15:13 ABG O2 Saturation 100 % (95-98) H 04/09/17 15:13 ABG Base Excess 13.6 mEq/L (-2.0 to 3.0) H 04/09/17 15:13 Sodium 135 mEq/L (136-145) L 04/09/17 04:20 Chloride 93 mEq/L (98-109) L 04/09/17 04:20 Carbon Dioxide 33 mEq/L (19-29) H 04/09/17 04:20 BUN 33 mg/dL (8-26) H 04/09/17 04:20 BUN/Creatinine Ratio 36 (6-26) H 04/09/17 04:20 Glucose 104 mg/dL (70-99) H 04/09/17 04:20 POC Glucose 91 (58-89) H 04/10/17 04:19 Calcium 8.1 mg/dL (8.6-10.8) L 04/09/17 04:20 Ionized Calcium 1.00 mmol/L (1.15-1.35) L 04/08/17 04:10 Iron 27 mcg/dL (65-175) L 04/08/17 04:10 % Saturation 10 % (20-55) L 04/08/17 04:10 Troponin I 0.08 ng/mL (0-0.03) H* 04/07/17 03:05 B-Natriuretic Peptide 263 pg/mL (0-100) H 04/06/17 05:46 Albumin 2.7 g/dL (3.5-5.0) L 04/06/17 05:46 Globulin 4.7 g/dL (2.4-3.5) H 04/06/17 05:46 Albumin/Globulin Ratio 0.6 (1.1-2.2) L 04/06/17 05:46 Urine Protein 30 mg/dL (Neg-Trace) H 04/06/17 09:45 Urine Blood Trace (Negative) H 04/06/17 09:45 Ur Leukocyte Esterase Large (Negative) H 04/06/17 09:45 Urine Microscopic RBC 5-15 per hpf (0-3) H 04/06/17 09:45 Urine Microscopic WBC TNTC per hpf (0-3) H 04/06/17 09:45 Urine Bacteria Many per hpf (None-Few) H 04/06/17 09:45 Ur Culture Indicated? YES (NO) A 04/06/17 09:45 Vancomycin Trough 24.3 mcg/mL (10-20) H* 04/07/17 17:44 - Microbiology Findings Microbiology Findings: Microbiology, Last 48 Hours 04/07/17 07:45 Sputum Culture - Preliminary Sputum Yeast Species 04/06/17 10:30 Blood Culture - Preliminary Central Venous Catheter No growth. - Clinical Findings Intake & Output: Intake & Output 04/09/17 04/09/17 04/10/17 15:59 23:59 07:59 Output Total 275 / 275 350 / 350 400 / 400 Balance -275 / -275 -350 / -350 -400 / -400 Weight 83.461 kg
[2017-04-10 07:16] LABS: Basophils % 0.2 %; Eosinophils # 0.1 K/mcL (0.0-0.6); Eosinophils % 0.5 %; Hematocrit 25.4 % (37.5-50.1); Hemoglobin 8.1 g/dL (12.9-16.9); Immature Granulocytes % 0.5 % (0-4); Lymphocytes # 1.7 K/mcL (0.6-4.6); Lymphocytes % 12.7 %; Mean Corpuscular HGB Conc 31.9 g/dL (31.6-35.5); Mean Corpuscular Hemoglobin 29.3 pg (28.0-33.3); Mean Platelet Volume 8.9 fL (9.4-12.4); Monocytes # 1.2 K/mcL (0.0-1.3); Monocytes % 9.4 %; Neutrophils # 10.1 K/mcL (1.6-8.9); Platelet Count 266 K/mcL (140-400); Red Blood Count 2.76 M/mcL (4.19-5.50); Red Cell Distribution Width 14.4 % (11.5-14.5); Segmented Neutrophils % 76.7 %
[2017-04-10] MEDS: Norepinephrine 4 MG in D5% in Water 250 ML IVC SCH (07:20)
[2017-04-10 07:33] LABS: BUN/Creatinine Ratio 30 (6-26); Blood Urea Nitrogen 23 mg/dL (8-26); Calcium 8.4 mg/dL (8.6-10.8); Carbon Dioxide 34 mEq/L (19-29); Chloride 97 mEq/L (98-109); Glucose 97 mg/dL (70-99); Osmolality,Calculated 290 (280-300); Sodium 138 mEq/L (136-145); eGFR For African Americans > 60 (> 60); eGFR For Non-African Americans > 60 (> 60)
[2017-04-10 07:44] LABS: ABG Base Excess 14.3 mEq/L (-2.0 to 3.0); ABG HCO3 41.4 mEQ/L (21-27); ABG Oxygen Saturation 86 % (95-98); ABG PH 7.38 pH Units (7.32-7.45); ABG PO2 52 mmHg (85-104); ABG TCO2 43.5 mEq/L (20-26)
[2017-04-10 07:45] LABS: Blood Gas FiO2 32 %
[2017-04-10 07:46] LABS: ABG PCO2 70 mmHg (35-45)
[2017-04-10] MEDS ORDERED: Ondansetron 4 MG/2 ML VIAL IVP PRN (08:14)
[2017-04-10] MEDS ORDERED: *HR* Metoprolol 5 MG/5 ML VIAL IVP PRN (08:14)
[2017-04-10] MEDS ORDERED: Sennosides/Docusate Sodium TABLET PO PRN (08:14)
[2017-04-10] MEDS: Simethicone 80 MG TAB.CHEW PO SCH ×4 (08:14→17:14)
[2017-04-10] MEDS ORDERED: Naloxone 0.4 MG/ML INJ IVP PRN (08:14)
[2017-04-10] MEDS: Diltiazem CD (24hr) 240 MG CAPSULE PO SCH (08:33)
[2017-04-10] MEDS: Furosemide 40 MG TABLET PO SCH ×2 (08:34→21:01)
[2017-04-10] MEDS: *HR* Digoxin 0.125 MG TABLET PO SCH (08:34)
[2017-04-10] MEDS ORDERED: Diltiazem CD (24hr) 240 MG CAPSULE PO SCH (09:00)
[2017-04-10] MEDS ORDERED: predniSONE 20 MG TABLET PO SCH (09:00)
[2017-04-10] MEDS ORDERED: Bisacodyl 10 MG RECTAL SUPPOSITORY RC PRN (10:37)
--- NOTE | 2017-04-10 15:11 | Palliative - Consult Note ---
Date of Encounter: 04/10/17 Time of Encounter: 14:30 - Assessment and Plan (1) Dyspnea Current Visit: Yes Status: Acute Assessment and plan: IV antibiotics continue as well as IV atb, oxygen, bronchodilators and bipap. Monitor Qualifiers: Dyspnea type: unspecified Qualified Code(s): R06.00 - Dyspnea, unspecified (2) Counseling regarding advanced care planning and goals of care Current Visit: Yes Status: Acute Assessment and plan: Discussed with pt and daughter at bedside. They are very focused on him recovering and returning to rehab. Discussed code status, and daughter understanding and appreciative of information. Provided written DNR information for them to review, as she stated they wanted to discuss as a family , but wanted to wait until his mental status was clearer. Provided daughter my contact information if she needs to contact me to discuss. Anticipate d/c back to [facility] place when stable. (3) Acute exacerbation of chronic obstructive airways disease Current Visit: Yes Status: Acute (4) Hypercapnic respiratory failure Current Visit: Yes Status: Acute Qualifiers: Chronicity: unspecified Qualified Code(s): J96.92 - Respiratory failure, unspecified with hypercapnia Palliative-CN HPI - Data of Consult Consult date: 04/10/17 Requesting Physician: Vic Greenwood MD Primary Care Provider: Solis Crowder MD - Consult Narrative History of present illness: Mr. Clark is a 82 year old male with a history of cholecysectomy with complications that required a transfer to [place] first of February, and then went to Rehab. His rehabilitation has been complicated by UTI and pneumonia. He was sent to hospital and currently being treated for respiratory failure, pneumonia, COPD. He has severe kyphosis and is a difficult intubation. Next of kin is , Claudette, and has 2 children who are supportive. He was successfully extubated yesterday, and has been utilizing bipap at . He has hearing deficit. Upon my visit, he is in no acute distress, and daughter is at bedside. has left til evening. Denies pain, other than difficulty getting comfortable in bed. States breathing is "ok", "but tough to get my air out at times". Alert and oriented to name and place, but make inappropriate statements at times. CC: Vic Greenwood MD Past Med Surg Social Fam HX - Past Medical History Medical history: atrial fibrillation, coronary artery disease, hyperlipidemia, hypertension, myocardial infarction, thyroid disease Psychiatric history: no psych history - Past Surgical History Surgical History: angioplasty/stent (multiple), coronary bypass (CABG) (3 vessel ), other (Atrial fibrillation ablation) - Social History Smoking Status: Former smoker Smokeless Tobacco Status: No Alcohol use: none Drug use: none - Family History Mother Living Status: Hx Family Neuromuscular Disorders: Yes (TB) Medications and Allergies Alendronate Sodium [Alendronate Sodium] 70 mg PO TU 02/22/17 [History] Atorvastatin [Lipitor] 40 mg PO HS 02/22/17 [History] Clopidogrel [Plavix] 75 mg PO DAILY 02/22/17 [History] Montelukast [Singulair] 10 mg PO HS 02/22/17 [History] Budesonide/Formoterol 160/4.5 [Symbicort 160/4.5] 2 puff IH BIDR 04/06/17 [ History] Diltiazem CD (24hr) [Cardizem CD] 240 mg PO DAILY 04/06/17 [History] Furosemide [Lasix] 40 mg PO BID 04/06/17 [History] HYDROcodone/Acet 5/325 mg [[place] 5-325 mg] 2 tab PO Q4H PRN 04/06/17 [History] Ipratropium/Albuterol Neb [Duoneb] 3 ml IH 0000,0600,1200,1800 PRN 04/06/17 [ History] Lipase/Protease/Amylase [Creon Dr 12,000 Units Capsule] 1 each PO TIDWM [History] Omeprazole [PriLOSEC] 40 mg PO DAILY 04/06/17 [History] Saline Nasal [place] [[place] Nasal [place]] 2 spr NS Q2H PRN 04/06/17 [History] Sennosides/Docusate Sodium [Senna-Docusate Sodium Tablet] 1 each PO HS PRN 04/06 [History] Simethicone [Bicarsim] 80 mg PO TIDWM 04/06/17 [History] Allergies albuterol Allergy (Verified 04/06/17 08:38) See Comments pt family states that it caused his HI ROS unobtainable: due to mental status Palliative Care-Exam - Constitutional Vitals: Temp Pulse Resp BP Pulse Ox 98.2 F 96 24 131/70 97 04/10/17 11:53 04/10/17 14:00 04/10/17 14:00 04/10/17 14:00 04/10/17 14:00 General appearance: Present: no acute distress - Head Head Exam: Present: normal inspection, normocephalic - Eye Eye exam: Present: normal appearance, PERRL - Respiratory Respiratory exam: Present: decreased breath sounds, CTAB - Cardiovascular Cardiovascular exam: Present: irregular rhythm - GI/Abdominal Exam GI/Abdominal exam: Present: normal bowel sounds, soft - Catheter Type: Urethral (Means) Additional comments: Means with clear yellow urine - Extremities Exam Extremities exam: Present: normal capillary refill, normal inspection - Neurological Exam Neurological exam: Present: alert, strengths equal and symetr throughout Additional comments: Oriented to name and place, but inappropriate statements at times. - Psychiatric Psychiatric exam: Present: normal mood - Skin Skin exam: Present: dry, pallor, warm Internal Medicine - CN: Reslt - Labs CBC & Chem 7: 04/10/17 07:10 04/10/17 07:10 Labs: Short CBC 04/10/17 Range/Units 07:10 WBC 13.2 H (4.3-11.1) K/mcL Hgb 8.1 L (12.9-16.9) g/dL Hct 25.4 L (37.5-50.1) % Plt Count 266 (140-400) K/mcL Neutrophils # 10.1 H (1.6-8.9) K/mcL BMP 04/10/17 07:10 Sodium 138 Potassium 4.0 Chloride 97 L Carbon Dioxide 34 H BUN 23 D Creatinine 0.76 Glucose 97 Calcium 8.4 L - ABG Interpretation ABG results: ABG ABG pH 7.38 pH Units (7.32-7.45) 04/10/17 07:30 ABG pCO2 70 mmHg (35-45) H* 04/10/17 07:30 ABG pO2 52 mmHg (85-104) L 04/10/17 07:30 ABG O2 Saturation 86 % (95-98) L 04/10/17 07:30 PT/INR, D-dimer PT 13.1 Seconds (9.4-12.1) H 04/06/17 08:10 Consult Discharge Plan - Plan Referrals: Solis Crowder MD [Primary Care Provider] - Palliative Quality Palliative Quality: Screen for Code Status: Yes, Screen for Goals of Care: Yes, Screen for Pain: Yes, If Pain Regimen Started, Initiate Bowel Regimen: NA, Screen for Nausea/Vomitting: Yes Code Status: 04/06/17 09:29 Resuscitation Status: Active [RES] Routine Comment: Resuscitation Status: Full Code
[2017-04-10] MEDS: Piperacillin/Tazobactam 3.375 GM in D5% in Water (Mini-Bag+) 100 ML IVPB SCH ×2 (15:32→23:40)
[2017-04-11 04:16] LABS: Hematocrit 27.2 % (37.5-50.1); Hemoglobin 8.4 g/dL (12.9-16.9); Immature Granulocytes % 0.4 % (0-4); Lymphocytes # 0.6 K/mcL (0.6-4.6); Lymphocytes % 5.4 %; Mean Corpuscular HGB Conc 30.9 g/dL (31.6-35.5); Mean Corpuscular Hemoglobin 27.7 pg (28.0-33.3); Mean Corpuscular Volume 89.8 fL (83.0-100.0); Mean Platelet Volume 8.7 fL (9.4-12.4); Monocytes # 0.6 K/mcL (0.0-1.3); Monocytes % 5.2 %; Neutrophils # 9.5 K/mcL (1.6-8.9); Platelet Count 263 K/mcL (140-400); Red Blood Count 3.03 M/mcL (4.19-5.50); Red Cell Distribution Width 14.1 % (11.5-14.5)
[2017-04-11 04:27] LABS: BUN/Creatinine Ratio 24 (6-26); Blood Urea Nitrogen 18 mg/dL (8-26); Calcium 8.7 mg/dL (8.6-10.8); Carbon Dioxide 37 mEq/L (19-29); Chloride 94 mEq/L (98-109); Glucose 124 mg/dL (70-99); Osmolality,Calculated 289 (280-300); Potassium 4.2 mEq/L (3.5-4.5); Sodium 138 mEq/L (136-145); eGFR For African Americans > 60 (> 60); eGFR For Non-African Americans > 60 (> 60)
[2017-04-11] MEDS: Ipratropium Neb 0.5 MG NEBULIZER IH SCH ×4 (04:59→21:43)
[2017-04-11] MEDS: Levalbuterol Neb 1.25 MG/3 ML IH SCH ×4 (04:59→21:43)
[2017-04-11] MEDS: *HR* Heparin 5,000 UNIT/ML VIAL SQ SCH ×3 (06:59→21:40)
[2017-04-11 08:36] LABS: ABG Base Excess 17.2 mEq/L (-2.0 to 3.0); ABG HCO3 44.1 mEQ/L (21-27); ABG Oxygen Saturation 97 % (95-98); ABG PCO2 68 mmHg (35-45); ABG PH 7.42 pH Units (7.32-7.45); ABG PO2 88 mmHg (85-104); ABG TCO2 46.2 mEq/L (20-26); Blood Gas FiO2 32 %
[2017-04-11] MEDS: Piperacillin/Tazobactam 3.375 GM in D5% in Water (Mini-Bag+) 100 ML IVPB SCH ×3 (08:41→23:34)
[2017-04-11] MEDS: Simethicone 80 MG TAB.CHEW PO SCH ×3 (08:48→17:13)
[2017-04-11] MEDS: *HR* Digoxin 0.125 MG TABLET PO SCH (08:51)
[2017-04-11] MEDS: Furosemide 40 MG TABLET PO SCH ×2 (08:51→21:40)
[2017-04-11] MEDS: Diltiazem CD (24hr) 240 MG CAPSULE PO SCH (08:52)
--- NOTE | 2017-04-11 12:31 | Internal Med Progress Note ---
Date of Encounter: 04/11/17 Time of Encounter: 09:00 - Assessment and plan (1) Acute on chronic respiratory failure with hypoxia and hypercapnia Current Visit: Yes Status: Acute Assessment and plan: Patient presented with changes in mental status and progressive shortness of breath from [facility]. He was admitted to our intensive care unit requiring intubation and mechanical ventilation. CT chest showed confluent bilateral lower lobe opacification, small bilateral pleural effusions and a platelet. 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 He received nebulizations and antibiotics with clinical improvement. Repeat chest x-ray showed patchy bilateral mid and lower lung airspace infiltrates unchanged 04/08. He was successfully extubated on 04/09 and was placed on BiPAP. Respiratory failure of multifactorial etiology due to pneumonia, COPD laceration , diastolic heart failure, and muscular skeletal abnormalities. Clinically slowly improving. Patient is tolerating well 3 L of oxygen via nasal cannula. Continue cyst seen for a total of 7 days (last day April 12). Continue nebulizations with levalbuterol and Atrovent due to tachycardia. We will do an overnight BiPAP qualification test tonight. ABG in the morning. (2) Sepsis Current Visit: Yes Status: Acute Assessment and plan: Resolved. Secondary to pneumonia. Continue Zosyn until April 12. Qualifiers: Sepsis type: sepsis due to unspecified organism Qualified Code(s): A41.9 - Sepsis, unspecified organism (3) Acute exacerbation of chronic obstructive airways disease Current Visit: Yes Status: Acute Assessment and plan: Plan as above. (4) HCAP (healthcare-associated pneumonia) Current Visit: Yes Status: Acute Assessment and plan: Bacterial pneumonia. Continue IV Zosyn. (5) Atrial fibrillation Current Visit: Yes Status: Chronic Assessment and plan: Continue home medications including diltiazem, and digoxin. IV metoprolol as needed. Qualifiers: Atrial fibrillation type: unspecified Qualified Code(s): I48.91 - Unspecified atrial fibrillation (6) Anemia Current Visit: Yes Status: Chronic Assessment and plan: Chronic anemia. Hemoglobin stable at 8.4. Patient is hemodynamically stable. No need for transfusion. Qualifiers: Anemia type: unspecified type Qualified Code(s): D64.9 - Anemia, unspecified (7) Coronary artery disease Current Visit: No Status: Chronic Qualifiers: Coronary Disease-Associated Artery/Lesion type: bypass graft [place] vs. transplanted heart: [place] heart Associated angina: without angina Qualified Code(s): I25.810 - Atherosclerosis of coronary artery bypass graft(s) without angina pectoris - Subjective Interval history: Patient complains of productive cough. - Constitutional Vitals: Temp Pulse Resp BP Pulse Ox 98.0 F 91 18 119/66 96 04/11/17 08:16 04/11/17 11:20 04/11/17 10:51 04/11/17 08:16 04/11/17 10:51 General appearance: Present: cooperative, mild distress, A&O X 3, pleasant, answers questions appropriately - Neck Neck exam general surgery: Present: supple, trachea midline. Absent: lymphadenopathy - Respiratory Respiratory exam: Present: decreased breath sounds (at right lower lung field. crackles at Left loer lung field.) - Cardiovascular Cardiovascular exam: Present: irregular rhythm - GI/Abdominal GI/Abdominal exam: Present: normal bowel sounds, soft. Absent: distended, tenderness - Extremities Exam Extremities exam: Present: pedal edema - Back Exam Back exam: Absent: CVA tenderness (L), CVA tenderness (R) - Neurological Exam Neurological exam: Present: alert, oriented X3, no focal deficits, strengths equal and symetr throughout. Absent: facial droop, speech deficit Internal Medicine: Result - Labs CBC & Chem 7: 04/11/17 04:00 04/11/17 04:00 Labs: Short CBC 04/11/17 Range/Units 04:00 WBC 10.6 (4.3-11.1) K/mcL Hgb 8.4 L (12.9-16.9) g/dL Hct 27.2 L (37.5-50.1) % Plt Count 263 (140-400) K/mcL Neutrophils # 9.5 H (1.6-8.9) K/mcL BMP 04/11/17 04:00 Sodium 138 Potassium 4.2 Chloride 94 L Carbon Dioxide 37 H BUN 18 Creatinine 0.75 Glucose 124 H Calcium 8.7 - ABG Interpretation ABG results: ABG ABG pH 7.42 pH Units (7.32-7.45) 04/11/17 08:25 ABG pCO2 68 mmHg (35-45) H 04/11/17 08:25 ABG pO2 88 mmHg (85-104) 04/11/17 08:25 ABG O2 Saturation 97 % (95-98) 04/11/17 08:25 PT/INR, D-dimer PT 13.1 Seconds (9.4-12.1) H 04/06/17 08:10 Consult Discharge Plan - Plan Referrals: Solis Crowder MD [Primary Care Provider] -
[2017-04-11] MEDS: HYDROcodone BIT/Homatropine 5 MG TABLET PO SCH ×4 (15:14→21:40)
[2017-04-11] MEDS ORDERED: Saline Nasal Spray 44 ML BOTTLE NS PRN (17:21)
[2017-04-12] MEDS: Ipratropium Neb 0.5 MG NEBULIZER IH SCH ×4 (04:18→21:22)
[2017-04-12] MEDS: Levalbuterol Neb 1.25 MG/3 ML IH SCH ×4 (04:18→21:22)
[2017-04-12 04:21] LABS: Basophils % 0.1 %; Eosinophils # 0.4 K/mcL (0.0-0.6); Eosinophils % 2.8 %; Hematocrit 27.3 % (37.5-50.1); Hemoglobin 8.6 g/dL (12.9-16.9); Immature Granulocytes % 0.5 % (0-4); Lymphocytes # 1.9 K/mcL (0.6-4.6); Lymphocytes % 13.8 %; Mean Corpuscular HGB Conc 31.5 g/dL (31.6-35.5); Mean Corpuscular Hemoglobin 28.1 pg (28.0-33.3); Mean Corpuscular Volume 89.2 fL (83.0-100.0); Monocytes # 0.9 K/mcL (0.0-1.3); Monocytes % 6.8 %; Neutrophils # 10.2 K/mcL (1.6-8.9); Platelet Count 263 K/mcL (140-400); Red Blood Count 3.06 M/mcL (4.19-5.50); Red Cell Distribution Width 14.4 % (11.5-14.5)
[2017-04-12 04:29] LABS: ABG Base Excess 23.4 mEq/L (-2.0 to 3.0); ABG HCO3 50.7 mEQ/L (21-27); ABG Oxygen Saturation 98 % (95-98); ABG PH 7.45 pH Units (7.32-7.45); ABG PO2 96 mmHg (85-104); ABG TCO2 52.9 mEq/L (20-26)
[2017-04-12 04:32] LABS: Blood Gas FiO2 28 %
[2017-04-12 04:35] LABS: ABG PCO2 73 mmHg (35-45)
[2017-04-12 04:45] LABS: BUN/Creatinine Ratio 20 (6-26); Blood Urea Nitrogen 16 mg/dL (8-26); Calcium 8.3 mg/dL (8.6-10.8); Chloride 90 mEq/L (98-109); Glucose 103 mg/dL (70-99); Magnesium 1.2 mg/dL (1.6-2.6); Osmolality,Calculated 289 (280-300); Potassium 3.2 mEq/L (3.5-4.5); Sodium 139 mEq/L (136-145); eGFR For African Americans > 60 (> 60); eGFR For Non-African Americans > 60 (> 60)
[2017-04-12 04:48] LABS: Carbon Dioxide 42 mEq/L (19-29)
[2017-04-12] MEDS: HYDROcodone BIT/Homatropine 5 MG TABLET PO SCH ×2 (05:39→21:45)
[2017-04-12] MEDS: *HR* Heparin 5,000 UNIT/ML VIAL SQ SCH ×3 (05:40→21:45)
[2017-04-12] MEDS: Piperacillin/Tazobactam 3.375 GM in D5% in Water (Mini-Bag+) 100 ML IVPB SCH ×2 (07:48→16:11)
[2017-04-12] MEDS: *HR* Digoxin 0.125 MG TABLET PO SCH (07:49)
[2017-04-12] MEDS: Simethicone 80 MG TAB.CHEW PO SCH ×3 (07:49→17:42)
[2017-04-12] MEDS: Furosemide 40 MG TABLET PO SCH ×2 (07:49→21:45)
[2017-04-12] MEDS: Diltiazem CD (24hr) 240 MG CAPSULE PO SCH (07:49)
[2017-04-12] MEDS ORDERED: Magnesium Sulfate 2 GM in D5% in Water 100 ML IVPB ONE (08:55)
--- NOTE | 2017-04-12 09:14 | Event Note ---
Date of Encounter: 04/12/17 Time of Encounter: 09:10 Patient sleeping - no visitors present. I was called yesterday afternoon by line clearance foreman. Patient's , Cyndi, called him and express frustration, saying she was "tired of hearing about DNR and wanted good thoughts for his recovery". She stated that when he is improved they will discuss as a family. The daughter had the same conversation with me on Thursday, and stated, "all anyone seems to want to discuss is his code status". She did ask for written information which I provided and explained to her. She has my contact information should they ever want to further discuss or make any transition. Palliative not currently managing any symptoms and will sign off. Please re- consult if needed.
[2017-04-12] MEDS: Magnesium Sulfate 1 GM in D5% in Water 100 ML IVPB ONE ×2 (10:30→11:35)
--- NOTE | 2017-04-12 17:07 | Internal Med Progress Note ---
Date of Encounter: 04/12/17 Time of Encounter: 09:00 - Assessment and plan (1) Acute on chronic respiratory failure with hypoxia and hypercapnia Current Visit: Yes Status: Acute Assessment and plan: Patient presented with changes in mental status and progressive shortness of breath from [facility]. He was admitted to our intensive care unit requiring intubation and mechanical ventilation. 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 He received nebulizations and antibiotics with clinical improvement. Repeat chest x-ray showed patchy bilateral mid and lower lung airspace infiltrates unchanged on 04/08. He was successfully extubated on 04/09 and was placed on BiPAP. Respiratory failure of multifactorial etiology due to pneumonia, COPD exacerbation, diastolic heart failure, and muscular skeletal abnormalities. Clinically slowly improving. Patient is tolerating 2 L of oxygen via nasal cannula well. Continue Zosyn for a total of 7 days (last day April 12). Continue nebulizations with levalbuterol and Atrovent due to tachycardia. check CXR in AM. Overnight BiPAP qualification test and ABG done, will ask our social insurance administrator to check if he meets his insurance criteria for BIPAP. (2) Sepsis Current Visit: Yes Status: Acute Assessment and plan: Resolved. Secondary to pneumonia. Continue Zosyn until April 12. Qualifiers: Sepsis type: sepsis due to unspecified organism Qualified Code(s): A41.9 - Sepsis, unspecified organism (3) Acute exacerbation of chronic obstructive airways disease Current Visit: Yes Status: Acute Assessment and plan: Plan as above. (4) HCAP (healthcare-associated pneumonia) Current Visit: Yes Status: Acute Assessment and plan: Bacterial pneumonia. Continue IV Zosyn. (5) Atrial fibrillation Current Visit: Yes Status: Chronic Assessment and plan: Continue home medications including diltiazem, and digoxin. IV metoprolol as needed. Qualifiers: Atrial fibrillation type: unspecified Qualified Code(s): I48.91 - Unspecified atrial fibrillation (6) Anemia Current Visit: Yes Status: Chronic Assessment and plan: Chronic anemia. Hemoglobin stable at 8.4. Patient is hemodynamically stable. No need for transfusion. Qualifiers: Anemia type: unspecified type Qualified Code(s): D64.9 - Anemia, unspecified (7) Coronary artery disease Current Visit: No Status: Chronic Qualifiers: Coronary Disease-Associated Artery/Lesion type: bypass graft [place] vs. transplanted heart: [place] heart Associated angina: without angina Qualified Code(s): I25.810 - Atherosclerosis of coronary artery bypass graft(s) without angina pectoris - Subjective Interval history: Patient reports his shortness of breath is slightly better this morning. - Constitutional Vitals: Temp Pulse Resp BP Pulse Ox 98.1 F 98 1 117/59 99 04/12/17 15:56 04/12/17 15:56 04/12/17 16:13 04/12/17 15:56 04/12/17 16:13 General appearance: Present: cooperative, A&O X 3, pleasant, no acute distress, answers questions appropriately - Respiratory Respiratory exam: Present: decreased breath sounds - Cardiovascular Cardiovascular exam: Present: RRR - GI/Abdominal GI/Abdominal exam: Present: normal bowel sounds, soft. Absent: distended, tenderness - Extremities Exam Extremities exam: Absent: pedal edema - Neurological Exam Neurological exam: Present: alert, oriented X3. Absent: facial droop, speech deficit - Skin Skin exam: Absent: rash Internal Medicine: Result - Labs CBC & Chem 7: 04/12/17 04:00 04/12/17 04:00 Labs: Short CBC 04/12/17 Range/Units 04:00 WBC 13.5 H (4.3-11.1) K/mcL Hgb 8.6 L (12.9-16.9) g/dL Hct 27.3 L (37.5-50.1) % Plt Count 263 (140-400) K/mcL Neutrophils # 10.2 H (1.6-8.9) K/mcL BMP 04/12/17 04:00 Sodium 139 Potassium 3.2 L D Chloride 90 L Carbon Dioxide 42 H* BUN 16 Creatinine 0.81 Glucose 103 H Calcium 8.3 L - ABG Interpretation ABG results: ABG ABG pH 7.45 pH Units (7.32-7.45) 04/12/17 04:15 ABG pCO2 73 mmHg (35-45) H* 04/12/17 04:15 ABG pO2 96 mmHg (85-104) 04/12/17 04:15 ABG O2 Saturation 98 % (95-98) 04/12/17 04:15 PT/INR, D-dimer PT 13.1 Seconds (9.4-12.1) H 04/06/17 08:10 Consult Discharge Plan - Plan Referrals: Solis Crowder MD [Primary Care Provider] -
[2017-04-13] MEDS: Ipratropium Neb 0.5 MG NEBULIZER IH SCH ×3 (03:47→15:53)
[2017-04-13] MEDS: Levalbuterol Neb 1.25 MG/3 ML IH SCH ×3 (03:48→15:53)
[2017-04-13] MEDS: *HR* Heparin 5,000 UNIT/ML VIAL SQ SCH ×2 (06:10→16:11)
[2017-04-13 06:28] LABS: Basophils % 0.2 %; Eosinophils # 0.6 K/mcL (0.0-0.6); Eosinophils % 5.2 %; Hemoglobin 8.5 g/dL (12.9-16.9); Immature Granulocytes % 0.4 % (0-4); Lymphocytes % 18.1 %; Mean Corpuscular HGB Conc 31.5 g/dL (31.6-35.5); Mean Corpuscular Hemoglobin 28.2 pg (28.0-33.3); Mean Corpuscular Volume 89.7 fL (83.0-100.0); Mean Platelet Volume 9.1 fL (9.4-12.4); Monocytes # 1.1 K/mcL (0.0-1.3); Monocytes % 9.6 %; Neutrophils # 7.4 K/mcL (1.6-8.9); Platelet Count 236 K/mcL (140-400); Red Blood Count 3.01 M/mcL (4.19-5.50); Red Cell Distribution Width 14.7 % (11.5-14.5); Segmented Neutrophils % 66.5 %
[2017-04-13 06:35] LABS: BUN/Creatinine Ratio 16 (6-26); Blood Urea Nitrogen 11 mg/dL (8-26); Calcium 8.6 mg/dL (8.6-10.8); Chloride 90 mEq/L (98-109); Glucose 100 mg/dL (70-99); Magnesium 1.5 mg/dL (1.6-2.6); Osmolality,Calculated 287 (280-300); Potassium 3.7 mEq/L (3.5-4.5); Sodium 139 mEq/L (136-145); eGFR For African Americans > 60 (> 60); eGFR For Non-African Americans > 60 (> 60)
[2017-04-13 06:37] LABS: Carbon Dioxide 43 mEq/L (19-29)
[2017-04-13] MEDS: HYDROcodone BIT/Homatropine 5 MG TABLET PO SCH (08:08)
[2017-04-13] MEDS: Furosemide 40 MG TABLET PO SCH (08:08)
[2017-04-13] MEDS: Simethicone 80 MG TAB.CHEW PO SCH ×3 (08:08→17:46)
[2017-04-13] MEDS: *HR* Digoxin 0.125 MG TABLET PO SCH (08:08)
[2017-04-13] MEDS ORDERED: Diltiazem CD (24hr) 300 MG CAPSULE PO SCH (09:00)
[2017-04-13] MEDS ORDERED: Magnesium Sulfate 1 GM in D5% in Water 100 ML IVPB ONE (10:01)
[2017-04-13 16:16] VITALS: BP 106/51
--- NOTE | 2017-04-13 16:33 | Discharge Summary ---
Date of Encounter: 04/13/17 Time of Encounter: 16:31 - Discharge Diagnosis (1) Acute on chronic respiratory failure with hypoxia and hypercapnia Priority: Primary Status: Acute (2) Sepsis Priority: Primary Status: Acute Qualifiers: Sepsis type: sepsis due to unspecified organism Qualified Code(s): A41.9 - Sepsis, unspecified organism (3) Acute exacerbation of chronic obstructive airways disease Priority: Primary Status: Acute (4) HCAP (healthcare-associated pneumonia) Priority: Primary Status: Acute (5) Atrial fibrillation Priority: Secondary Status: Chronic Qualifiers: Atrial fibrillation type: unspecified Qualified Code(s): I48.91 - Unspecified atrial fibrillation (6) Anemia Priority: Secondary Status: Chronic Qualifiers: Anemia type: unspecified type Qualified Code(s): D64.9 - Anemia, unspecified (7) Coronary artery disease Priority: Secondary Status: Chronic Qualifiers: Coronary Disease-Associated Artery/Lesion type: bypass graft [place] vs. transplanted heart: [place] heart Associated angina: without angina Qualified Code(s): I25.810 - Atherosclerosis of coronary artery bypass graft(s) without angina pectoris - Discharge Medications Prescriptions: HYDROcodone/Acet 5/325 mg [[place] 5-325 mg] 1 tab PO TID #20 tablet Home Medications: Alendronate Sodium 70 mg PO TU 02/22/17 [History] Atorvastatin [Lipitor] 40 mg PO HS 02/22/17 [History] Clopidogrel [Plavix] 75 mg PO DAILY 02/22/17 [History] Montelukast [Singulair] 10 mg PO HS 02/22/17 [History] Budesonide/Formoterol 160/4.5 [Symbicort 160/4.5] 2 puff IH BIDR 04/06/17 [ History] Furosemide [Lasix] 40 mg PO BID 04/06/17 [History] Lipase/Protease/Amylase [Creon Dr 12,000 Units Capsule] 1 each PO TIDWM [History] Omeprazole [PriLOSEC] 40 mg PO DAILY 04/06/17 [History] Saline Nasal [place] [[place] Nasal [place]] 2 spr NS Q2H PRN 04/06/17 [History] Sennosides/Docusate Sodium [Senna-Docusate Sodium Tablet] 1 each PO HS PRN 04/06 [History] Simethicone [Bicarsim] 80 mg PO TIDWM 04/06/17 [History] Bisacodyl [Dulcolax] 10 mg RC DAILY PRN #0 supp.rect 04/13/17 [Rx] Digoxin [Lanoxin] 0.125 mg PO DAILY tablet 04/13/17 [Rx] Diltiazem CD (24hr) [Cardizem CD] 300 mg PO DAILY cap.er.24h 04/13/17 [Rx] HYDROcodone/Acet 5/325 mg [[place] 5-325 mg] 1 tab PO TID #20 tablet 04/13/17 [Rx] Ipratropium Neb [Atrovent Neb] 0.5 mg IH [id number] inhsol 04/13/17 [Rx] Levalbuterol Neb [Xopenex Neb] 1.25 mg IH [id number] vial.neb 04/13/17 [Rx] Magnesium Oxide [Mag-Ox] 400 mg PO BID tablet 04/13/17 [Rx] Allergies/Adverse Reactions: Allergies albuterol Allergy (Verified 04/06/17 08:38) See Comments pt family states that it caused his [place] Date of admission: 04/06/17 09:16 Primary care physician: Solis Crowder MD Consults: 04/06/17 12:01 Consult to Manager Cafe [CONS] Routine Reason for SW Consult: FROM [facility]/ RETURN TO [facility] 04/06/17 16:13 Consult to Invasive Line Access Team [CONS] Routine Reason for Consult: Limited vascular access Line Type: EPIV 04/08/17 11:00 Consult to Nutrition [CONS] Stat Comment: Consulting Provider: NUTRITION Reason for Dietary Consult: TF Start and Manage 04/09/17 10:58 Consult to Occupational Therapy [CONS] Stat Comment: Evaluate, develop and implement POC Reason for Consult: POC Consult to Physical Therapy [CONS] Stat Comment: Evaluate, develop and implement POC Reason for Consult: POC 04/09/17 13:59 Consult to Speech Therapy [CONS] Stat Comment: Evaluate, develop and implement POC Reason for Consult: swallow eval, extubated with am with no gag Time Notified: 14:00 Call Completed: Yes 04/10/17 10:42 Consult to Palliative Care [CONS] Routine Comment: Consulting Provider: Palliative Care Rosita Reason for Consult: goals of care Call Completed: Yes - Patient Status Disposition: Transfer SNF Condition: Fair Functional capacity at discharge: uses cane/walker Overall status at discharge: patient is progressing back to baseline - Discharge Instructions Instructions: Hydrocodone/Acetaminophen (By mouth), Sepsis (DC), Altered Mental Status (GEN), Pneumonia (DC) Follow Up With: Solis Crowder MD [Primary Care Provider] - Myriam Ferrari MD [Partnered Physician] - (F/U IN 1-2 WEEKS) - Diet and Activity Activity: wear oxygen at all times (2-3) Diet: other (ADVANCED SOFT DIET CHOPPED MEAT, THIN LIQUIDS) Interval History: patient reports his breathing is better compared to admission. Hospital course: Mr. Clark is a 82 year old male with past medical history of COPD, atrial fib, and CAD who presented with with changes in mental status and progressive shortness of breath from [facility]. He was admitted to our intensive care unit and required intubation and mechanical ventilation. His respiratory failure is of multifactorial etiology due to pneumonia, COPD exacerbation, diastolic heart failure, and muscular skeletal abnormalities. 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 He received nebulizations, IV steroids, lasix and empiric antibiotics with clinical improvement. Repeat chest x-ray showed patchy bilateral mid and lower lung airspace infiltrates unchanged on 04/08. He was successfully extubated on 04/09 and was placed on BiPAP. Patient continued to improve and was tolerating 2L NC well. He completed a 7-day course of IV Zosyn while inpatient. He qualified for BIPAP at bedtime and naptime. PLAN: follow up in the pulmonology clinic in 2-3 weeks. PRIOR HOSPITALIZATIONS: 02/24-03/09: Patient admitted to [facility] and treated for intra- abdominal hemorrhage and liver laceration post-ERCP leading to hemorrhagic shock , respiratory failure, prolonged intubation, aspiration PNA and fluid overoad. 03/17-03/21: Patient admitted to [facility] and treated for acute on chronic diastolic heart failure (LVEF 55%), pt discharged on 2L NC. CTA of chest showed moderate bilateral pleural effusions with loculated component involving the left hemithorax, moderate atherosclerotic disease. CTAP showed subcapsular hematoma at the lateral segment of the left hepatic lobe and anterior segment of the right hepatic lobe with the greatest thickness of about 2 cm. A stent from the right hepatic duct into the common bile duct and the duodenum is present. - Time Spent with Patient Total time spent providing and/or coordinating discharge services: - Constitutional Vitals: Temp Pulse Resp BP Pulse Ox 97.9 F 71 18 106/51 95 04/13/17 16:13 04/13/17 16:20 04/13/17 16:13 04/13/17 16:13 04/13/17 16:13 General appearance: Present: cooperative, A&O X 3, pleasant, no acute distress, answers questions appropriately - Neck Additional comments: cervical kyphosis - Respiratory Respiratory exam: Present: decreased breath sounds - Cardiovascular Cardiovascular exam: Present: RRR - GI/Abdominal GI/Abdominal exam: Present: normal bowel sounds, soft. Absent: distended, tenderness - Extremities Exam Extremities exam: Absent: pedal edema - Back Exam Back exam: Absent: CVA tenderness (L), CVA tenderness (R) - Neurological Exam Neurological exam: Present: alert, oriented X3, no focal deficits. Absent: facial droop, speech deficit - Skin Skin exam: Absent: rash
--- NOTE | 2017-04-13 16:39 | Physician Discharge Referral ---
ExtendedCare Referral Info Transfer To: [facility] Provider in Charge: WOLF Provider in Charge after Transfer: PCP Institutional Level of Care: Skilled - Diagnosis (1) Acute on chronic respiratory failure with hypoxia and hypercapnia Status: Acute (2) Sepsis Status: Acute (3) Acute exacerbation of chronic obstructive airways disease Status: Acute (4) HCAP (healthcare-associated pneumonia) Status: Acute (5) Atrial fibrillation Status: Chronic (6) Anemia Status: Chronic (7) Coronary artery disease Status: Chronic - Transfer Medications Prescriptions: HYDROcodone/Acet 5/325 mg [[place] 5-325 mg] 1 tab PO TID #20 tablet Home Medications: Alendronate Sodium 70 mg PO TU 02/22/17 [History] Atorvastatin [Lipitor] 40 mg PO HS 02/22/17 [History] Clopidogrel [Plavix] 75 mg PO DAILY 02/22/17 [History] Montelukast [Singulair] 10 mg PO HS 02/22/17 [History] Budesonide/Formoterol 160/4.5 [Symbicort 160/4.5] 2 puff IH BIDR 04/06/17 [ History] Furosemide [Lasix] 40 mg PO BID 04/06/17 [History] Lipase/Protease/Amylase [Creon Dr 12,000 Units Capsule] 1 each PO TIDWM [History] Omeprazole [PriLOSEC] 40 mg PO DAILY 04/06/17 [History] Saline Nasal [place] [[place] Nasal [place]] 2 spr NS Q2H PRN 04/06/17 [History] Sennosides/Docusate Sodium [Senna-Docusate Sodium Tablet] 1 each PO HS PRN 04/06 [History] Simethicone [Bicarsim] 80 mg PO TIDWM 04/06/17 [History] Bisacodyl [Dulcolax] 10 mg RC DAILY PRN #0 supp.rect 04/13/17 [Rx] Digoxin [Lanoxin] 0.125 mg PO DAILY tablet 04/13/17 [Rx] Diltiazem CD (24hr) [Cardizem CD] 300 mg PO DAILY cap.er.24h 04/13/17 [Rx] HYDROcodone/Acet 5/325 mg [[place] 5-325 mg] 1 tab PO TID #20 tablet 04/13/17 [Rx] Ipratropium Neb [Atrovent Neb] 0.5 mg IH [id number] inhsol 04/13/17 [Rx] Levalbuterol Neb [Xopenex Neb] 1.25 mg IH [id number] vial.neb 04/13/17 [Rx] Magnesium Oxide [Mag-Ox] 400 mg PO BID tablet 04/13/17 [Rx] Allergies/Adverse Reactions: Allergies albuterol Allergy (Verified 04/06/17 08:38) See Comments pt family states that it caused his [place] - Respiratory Orders Oxygen / L per min (2) Smoking Cessation: Smoking cessation has been advised. For more information, call the [place] Tobacco Quit Line at 0-776-MCPY-NOW. - Lab Orders Lab Orders: Other (include drug levels w/frequency) (CBC AND BMP IN 1 WEEK) - Advance Directives Code Status: Full Code - Mobility Orders Ambulate - Rehabiliation Orders Rehab Potential: Fair Rehab Orders: Evaluation for Physical Therapy, Evaluation for Occupational Therapy - Diet Orders Cardiac (ADVANCED SOFT DIET CHOPPED MEAT, THIN LIQUIDS.) CERTIFICATION: I certify that the transfer of the above named patient to an Extended Care Facility is necessary for the continuing treatment of the diagnosis listed. The above information is true and accurate reflection of patient's current condition. Confidential - Redisclosure prohibited without a patient's written consent.
[2017-04-13] MEDS ORDERED: Magnesium Oxide 400 MG TABLET PO SCH (21:00)
[2017-04-14] MEDS ORDERED: NON-FORMULARY MEDICATION 1 EACH EACH (Alendronate Sodium [Alendronate Sodium] 70 MG) PO SCH (07:21)
--- NOTE | 2017-04-14 16:37 | Electrocardiograph Report ---
[place] [id number] Test Date: 2017-04-11 Pat Name: Evangelista Clark Department: 110 Room: 04 Gender: M Dispute Specialist: : [id number] Requested By: Tamiko Sanchez Order Number: [id number] Reading MD: Leidy Mitchell Measurements Intervals [place] Rate: 0 P: CT: 0 QRS: 0 QRSD: 0 T: 0 QT: 0 QTc: 0 Interpretive Statements Atrial fibrillation with controlled ventricular response Electronically Signed On 04-14-2017 16:36:17 EDT by Leidy Mitchell
== END 2017-04-13 18:07 | DRG 871 ==
LOC: EMEROO 05:16 → ICNU 05:16 → SUATTDRO 09:16 → 2NNU 04-10 15:14
PROVIDERS: ADMIT Internal Medicine Hospice and Palliative Medicine; ATTEND Internal Medicine